=== PATIENT | female | born 1950 | race Caucasian/White ===

== ENCOUNTER 2024-03-26 08:23 | Emergency (ER) | payer OTHER, SELFPAY ==
[2024-03-26 08:32] VITALS: BP 117/71; PULSE 77; RESP 16; TEMP 36.3; O2SAT 96; BMI 29.4
[2024-03-26 09:00] LABS: IDNOW Serial# 08D9AD1C; Strep A Nucleic Acid Negative (Negative)
--- OUTSIDE RECORDS SUMMARY | 2024-03-26 09:04 | XMS_ITS | Continuity of Care Document ---
Author Organization [facility] Saran Wetzel Aung lt Address [address] [place] [address]- Care Team Providers Care Value Analysis Coordinator Name Role Phone Shazia IVAN, Santana Shultz Primary Care Physician Encounter [facility] Date(s): 09/08/20 - 10/08/20 [facility] Saran Starkley Adult [address] [place] [address]- Allergies, Adverse Reactions, Alerts Substance Reaction Severity Status Reglan bruising Active Immunizations Given and Recorded Vaccine Date Status Refusal Reason Influenza Virus Vaccine (oldterm) 1 01/28/20 Recor ded influenza virus vaccine, inactivated 2 02/12/19 Gi ricci influenza virus vaccine, inactivated 3 12/29/16 Gi ricci influenza virus vaccine, inactivated 4 02/01/16 Gi ricci influenza virus vaccine, inactivated 5 12/07/14 Gi ricci influenza virus vaccine, inactivated 6 01/03/14 Gi ricci influenza virus vaccine, inactivated 7 03/24/13 Gi ricci pneumococcal 13-valent vaccine 8 10/09/18 Given Zostavax (oldterm) 9 03/24/13 Given FluLaval (oldterm) 03/01/12 Given Tet/diphth/pertussis, acel (oldterm) 05/12/11 Give n Tetanus Toxoid Vaccine (oldterm) 08/28/00 Given 1Result Comment: PHARMACY 2Result Comment: [id number] 3[facility] 5[facility] Comment[facility] [[facility]2014[facility] 7Admin Note: [facility] 03-22-13 8Result Comment: 9Admin Note[facility] 03-22-13. Medications ALPRAZolam 0.5 mg oral tablet 0.5 mg, 1, tablet, By Mouth, 3 times a day, PRN, # 12 tablet, Refills 0, Tot. Refills 0, Maintenance, for anxiety, 09/09/20 16:37:00 EDT, Route to Pharmacy Electronically, [id number], 167.64, cm, 06/30/20 15:11:00 EST, Height, 96, kg, 08/10... Start Date: 09/09/20 Status: Ordered Excedrin By Mouth, 0 Refills, Maintenance, 08/04/20 11:06:00 EDT, Partial fill upon patient request if the prescription is for a schedule II opioid drug. Start Date: 08/04/20 Status: Ordered hydrochlorothiazide 25 mg oral tablet 25 mg, 1, tablet, By Mouth, Daily, Refills 0, Maintenance, 10/05/20 9:22:00 EDT, Partial fill upon patient request if the prescription is for a schedule II opioid drug. Start Date: 10/05/20 Status: Ordered methylphenidate 10 mg/8 hr oral tablet, extended release 1 tablet = 10 mg, By Mouth, Daily, # 30 tablet, 0 Refills, Maintenance, 10/02/20 8:26:00 EDT, ER Tablet, [id number], 167.64, cm, 06/30/20 15:11:00 EST, Height, 96, kg, 08/10/20 7:04:00 EDT, Dry Weight Start Date: 10/02/20 Status: Ordered nortriptyline 25 mg oral capsule 50 mg, 2, capsule, By Mouth, Daily at bedtime, 2 tabs at bedtime, # 60 capsule, Refills 5, Tot. Refills 5, Maintenance, 10/07/20 12:20:00 EDT, [id number], Dose reduced., 167.64, cm, 10/05/20 9:20:00 E... Start Date: 10/07/20 Stop Date: 04/05/21 Status: Ordered omeprazole 20 mg oral enteric coated capsule 1 capsule = 20 mg, By Mouth, Daily, # 14 capsule, 0 Refills, Maintenance, 08/18/20 9:40:00 EDT, EC Capsule, [id number], Partial fill upon patient request if the prescription is for a schedule II opioid drug., 167.64, cm, 06/30/20 15:11:00 E... Start Date: 08/18/20 Stop Date: 09/01/20 Status: Ordered SUMAtriptan 50 mg oral tablet 1 tablet = 50 mg, By Mouth, Once, 0 Refills, Maintenance, 10/05/20 9:22:00 EDT, Partial fill upon patient request if the prescription is for a schedule II opioid drug. 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
--- OUTSIDE RECORDS SUMMARY | 2024-03-26 09:04 | XMS_ITS | Continuity of Care Document ---
Author Organization [facility] Aung lt Address [address] [place] [address]- Care Team Providers Care Airline Operations Agent Name Role Phone Yelena Fischer Primary Care Physician Encounter [facility] Date(s): 06/12/23 - 07/12/23 [facility] Adult [address] [place] [address]- Referring Physician: Skylar Perez Allergies, Adverse Reactions, Alerts Substance Reaction Severity Status Reglan bruising Active Crestor Active Immunizations Given and Recorded Vaccine Date Status Refusal Reason [id number] bivalent booster vax 03/25/22 Recorded SARS-CoV-2 (COVID-19) mRNA BNT-162b2 vac 02/07/21 Recorded SARS-CoV-2 (COVID-19) mRNA BNT-162b2 vac 07/27/20 Recorded SARS-CoV-2 (COVID-19) mRNA BNT-162b2 vac 07/06/20 Recorded Influenza Virus Vaccine (oldterm) 12/29/20 Recorde d Influenza Virus Vaccine (oldterm) 1 01/28/20 Recor ded influenza virus vaccine, inactivated 2 02/12/19 Gi ricci influenza virus vaccine, inactivated 3 12/29/16 Gi ricci influenza virus vaccine, inactivated 12/25/16 Rosalino rded influenza virus vaccine, inactivated 4 02/01/16 Gi ricic influenza virus vaccine, inactivated 5 12/07/14 Gi ricci influenza virus vaccine, inactivated 6 01/03/14 Gi ricci influenza virus vaccine, inactivated 7 03/24/13 Gi ricci pneumococcal 13-valent vaccine 8 10/09/18 Given Zostavax (oldterm) 9 03/24/13 Given FluLaval (oldterm) 03/01/12 Given Tet/diphth/pertussis, acel (oldterm) 05/12/11 Give n Tetanus Toxoid Vaccine (oldterm) 08/28/00 Given 1Result Comment: PHARMACY 2Result Comment: [id number] 3[facility] 4[facility] 5[facility] Comment: [[facility] 7[facility] Note[facility] 03-22-13 8Result Comment: [id number] 9Admin Note: [facility] 03-22-13. Medications acetaminophen 325 mg oral tablet 650 mg, By Mouth, Every 6 hours, May take OTC not to exceed 3000 mg/day, Refills 0, Maintenance, 01/08/23 11:05:00 EDT, Partial fill upon patient request if the prescription is for a schedule II opioid drug. Start Date: 01/08/23 Status: Ordered Aimovig = 70 mg, Subcutaneous Infusion, Every 28 days, 0 Refills, Maintenance, 12/26/22 11:08:00 EDT, Partial fill upon patient request if the prescription is for a schedule II opioid drug. Start Date: 12/26/22 Status: Ordered Aspirin Tablet 325 mg, By Mouth, 2 times a day, Refills 0, Maintenance, 01/08/23 11:05:00 EDT, Partial fill upon patient request if the prescription is for a schedule II opioid drug. Start Date: 01/08/23 Status: Ordered celecoxib 200 mg oral capsule = 200 mg, By Mouth, Daily, 0 Refills, Maintenance, 01/08/23 11:05:00 EDT, Capsule, Partial fill upon patient request if the prescription is for a schedule II opioid drug. Start Date: 01/08/23 Status: Ordered Colace Capsule 100 mg, 1, capsule, By Mouth, 2 times a day, PRN, Refills 0, Maintenance, as needed for constipation, 01/08/23 11:05:00 EDT, Partial fill upon patient request if the prescription is for a schedule IIopioid drug. Start Date: 01/08/23 Status: Ordered gabapentin 300 mg oral capsule 900 mg, 3, capsule, By Mouth, Daily at bedtime, # 90 capsule, Refills 5, Maintenance, 12/21/22 9:11:00 EDT, Partial fill upon patient request if the prescription is for a schedule II opioid drug. Start Date: 12/21/22 Status: Ordered hydrOXYzine pamoate 25 mg oral capsule 1 capsule = 25 mg, By Mouth, 4 times a day, PRN for anxiety, # 40 capsule, 0 Refills, Maintenance, 12/21/22 9:09:00 EDT, Capsule, Partial fill upon patient request if the prescription is for a schedule II opioid drug. Start Date: 12/21/22 Status: Ordered methylphenidate 10 mg/8 hr oral tablet, extended release 1 tablet = 10 mg, By Mouth, Daily, # 30 tablet, 0 Refills, Maintenance, 06/13/23 9:54:00 EST, ER Tablet, [facility], 163, cm, 01/08/23 11:46:00 EDT, Height, 94.1, kg, 01/08/23 7:00:00 EDT, Dry Weight Start Date: 06/13/23 Status: Ordered Nurtec ODT 75 mg oral tablet, disintegrating 1 tablet = 75 mg, By Mouth, Every 24 hours, PRN as needed for migraine headache, not to exceed 75 mg in 24 hours, # 8 tablet, 5 Refills, Maintenance, 12/21/22 9:10:00 EDT, DIS Tablet, Partial fill upon patient request if the prescription is for a sche... Start Date: 12/21/22 Status: Ordered pantoprazole 40 mg oral delayed release tablet = 40 mg, By Mouth, Daily, 0 Refills, Maintenance, 01/08/23 11:05:00 EDT, EC Tablet Start Date: 01/08/23 Status: Ordered pramipexole 0.25 mg oral tablet 1 tablet = 0.25 mg, By Mouth, Daily at bedtime, PRN Other, restless legs, # 90 tablet, 5 Refills, Maintenance, 12/21/22 9:10:00 EDT, Tablet, Partial fill upon patient request if the prescription is for a schedule II opioid drug. Start Date: 12/21/22 Status: Ordered sertraline 100 mg oral tablet 0 Refills, Maintenance, 09/04/22 12:48:00 EDT, Partial fill upon patient request if the prescription is for a schedule II opioid drug. Start Date: 09/04/22 Status: Ordered Slow Fe (as elemental iron) 45 mg oral tablet, extended release 1 tablet = 45 mg, By Mouth, Daily, 0 Refills, Maintenance, 11/22/20 9:56:00 EDT, Partial fill upon patient request if the prescription is for a schedule II opioid drug. Start Date: 11/22/20 Status: Ordered topiramate 100 mg oral tablet 1 tablet = 100 mg, By Mouth, Daily, # 30 tablet, 0 Refills, Maintenance, 09/04/22 12:48:00 EDT, Tablet, Partial fill upon patient request if the prescription is for a schedule II opioid drug. Start Date: 09/04/22 Status: Ordered Vitamin B2 100 mg oral tablet 1 tablet = 100 mg, By Mouth, Daily, # 30 tablet, 0 Refills, Maintenance, 09/04/22 12:50:00 EDT, Tablet, Partial fill upon patient request if the prescription is for a schedule II opioid drug. Start Date: 09/04/22 Status: Ordered Vitamin D3 2000 intl units oral tablet 1 tablet = 50 mcg, By Mouth, Daily, 0 Refills, Maintenance, 09/04/22 12:49:00 EDT, Partial fill upon patient request if the prescription is for a schedule II opioid drug. 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 Confirmed Active Herpes labialis Confirmed Active Esophageal hiatal hernia Confirmed Active Hypercholesterolemia - ASCVD risk 3.8% as of 08/11/16 Confirmed Active Iron deficiency Confirmed Active Migraine with vertigo Confirmed Active Obesity Confirmed Active [facility] prescription benzodiazepine use Confirmed Active Raynaud's phenomenon Confirmed 03/26/09 Active Severe obesity (BMI 35.0-39.9) with comorbidity Confirmed Active Situational anxiety Confirmed 03/01/12 Active Tinnitus Confirmed 01/20/08 Active Recurrent vertigo - BPPV Confirmed Active Social History Social History Type Response Smoking Status Never smoker entered on: 09/28/17 Sex Patient Care team information Care Team Personnel Name: Yelena Fischer Position: S PCO Associate Professional Member Role: PCP Address: Address: [address] [place] [address] Care Team Related Persons Name: SELMA TEE Address: [address] [place] [address] Name: ELIDA TEE Address: home [address] [place] [address]
--- OUTSIDE RECORDS SUMMARY | 2024-03-26 09:04 | XMS_ITS | Continuity of Care Document ---
Author Organization [facility] Saran Wetzel Aung lt Address [address] [place] [address]- Care Team Providers Care Event Services Manager Name Role Phone Santana Mccray MD Primary Care Physician Encounter [facility] Date(s): 06/10/19 - 06/17/19 [facility] Saran Wetzel Adult [address] [place] [address]- [facility] Encounter Diagnosis Complicated migraine(Discharge Diagnosis) - 06/10/19 Attending Physician: Santana Mccray MD Allergies, Adverse Reactions, Alerts Substance Reaction Severity Status NKA Active Immunizations Given and Recorded Vaccine Date Status Refusal Reason influenza virus vaccine, inactivated 1 02/12/19 Gi ricci influenza virus vaccine, inactivated 2 12/29/16 Gi ricci influenza virus vaccine, inactivated 3 02/01/16 Gi ricci influenza virus vaccine, inactivated 4 12/07/14 Gi ricci influenza virus vaccine, inactivated 5 01/03/14 Gi ricci influenza virus vaccine, inactivated 6 03/24/13 Gi ricci pneumococcal 13-valent vaccine 7 10/09/18 Given Zostavax (oldterm) 8 03/24/13 Given FluLaval (oldterm) 03/01/12 Given Tet/diphth/pertussis, acel (oldterm) 05/12/11 Give n Tetanus Toxoid Vaccine (oldterm) 08/28/00 Given 1Result Comment: [id number] 2[facility] 3[facility] 4[facility] Comment[facility] 6Admin Note[facility] 03-22-13 7Result Comment: 8Admin Note[facility] 03-22-13. Medications ALPRAZolam 0.5 mg oral tablet 0.5 mg, 1, tablet, By Mouth, 3 times a day, PRN, # 12 tablet, Refills 0, Tot. Refills 0, Maintenance, for anxiety, 02/12/19 14:46:41 EDT, Route to Pharmacy Electronically, [id number], [id number] Start Date: 02/12/19 Status: Ordered ferrous sulfate 325 mg oral tablet See Instructions, 1 tablet By Mouth every other day, 0 Refills, Maintenance, 07/25/16 10:33:44 Start Date: 07/25/16 Status: Ordered methylphenidate 20 mg/8 hr oral tablet, extended release 20 mg, 1, tablet, By Mouth, Daily, do not crush or chew, # 30 tablet, Refills 0, Tot. 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) Active ADD (attention deficit disorder)(Confirmed) 01/20/08 Active Conductive hearing loss(Confirmed) 01/20/08 Active Dizzinesses(Confirmed) Active Epigastric pain(Confirmed) Active Gastritis(Confirmed) Active Herpes labialis(Confirmed) Active Esophageal hiatal hernia(Confirmed) Active H/O nausea(Confirmed) Active Hypercholesterolemia - ASCVD risk 3.8% as of 08/11/16(Confirmed) Active Obesity(Confirmed) Active Raynaud's phenomenon(Confirmed) 03/26/09 Active Situational anxiety(Confirmed) 03/01/12 Active Tinnitus(Confirmed) 01/20/08 Active Tongue ulceration(Confirmed) 01/20/08 Active Recurrent vertigo(Confirmed) Active Diagnosis Diagnosis Type Effective Dates Health Status Clinical Service Informant Complicated migraine Discharge Diagnosis 06/10/19 Vital Signs Most recent to oldest [Reference Range]: 1 Height 162.5 cm (06/10/19 3:30 PM) Weight 91.5 kg (06/10/19 3:30 PM) Oxygen Saturation [94-100 %] 97 % (06/10/19 3:30 PM) Pulse Rate [55-90 bpm] 82 bpm (06/10/19 3:30 PM) Body Mass Index [18.5-24.99] 34.65 *>HHI* (06/10/19 3:30 PM) Blood Pressure [90-138/55-84 mm Hg] 116/ 66mm Hg (06/10/19 3:30 PM) Respiratory Rate [16-30 br/min] 14 br/mi n *L* (06/10/19 3:30 PM) Temperature [96.8-100.4 DegF] 97.9 DegF (06/10/19 3:30 PM) Mode of Delivery (Oxygen) Room air (06/10/19 3:30 PM) Blood pressure sites Arm, left (06/10/19 3:30 PM) Temperature Route Oral (06/10/19 3:30 PM) Weight Obtained Via Standing scale (06/10/19 3:30 PM) Social History Social History Type Response Smoking Status Never smoker entered on: 09/28/17 Sex
--- OUTSIDE RECORDS SUMMARY | 2024-03-26 09:04 | XMS_ITS | Continuity of Care Document ---
Author Organization [facility] Rashard Aung lt Address [address] [place] [address]- Care Team Providers Care Corsetier Name Role Phone Esme HERNÁNDEZ, Yelena Mix Primary Care Physician [place] [facility] Date(s): 12/12/23 - 01/11/24 [facility] Adult [address] [place] [address]- Allergies, Adverse Reactions, Alerts Substance Reaction Severity Status Reglan bruising Active Crestor Active Immunizations Given and Recorded Vaccine Date Status Refusal Reason influenza virus vaccine, inactivated 05/16/23 Rosalino rded influenza virus vaccine, inactivated 1 02/12/19 Gi ricci influenza virus vaccine, inactivated 2 12/29/16 Gi ricci influenza virus vaccine, inactivated 12/25/16 Rosalino rded influenza virus vaccine, inactivated 3 02/01/16 Gi ricci influenza virus vaccine, inactivated 4 12/07/14 Gi rcici influenza virus vaccine, inactivated 5 01/03/14 Gi ricci influenza virus vaccine, inactivated 6 03/24/13 Gi ricci [id number] bivalent booster vax 03/25/22 Recorded SARS-CoV-2 (COVID-19) mRNA BNT-162b2 vac 02/07/21 Recorded SARS-CoV-2 (COVID-19) mRNA BNT-162b2 vac 07/27/20 Recorded SARS-CoV-2 (COVID-19) mRNA BNT-162b2 vac 07/06/20 Recorded Influenza Virus Vaccine (oldterm) 12/29/20 Recorde d Influenza Virus Vaccine (oldterm) 7 01/28/20 Recor ded pneumococcal 13-valent vaccine 8 10/09/18 Given Zostavax (oldterm) 9 03/24/13 Given FluLaval (oldterm) 03/01/12 Given Tet/diphth/pertussis, acel (oldterm) 05/12/11 Give n Tetanus Toxoid Vaccine (oldterm) 08/28/00 Given 1Result Comment: [id number] [facility] 3[facility] 6Admin Note[facility] 03-22-13 7Result Comment: PHARMACY 8Result Comment: 9Admin Note[facility] 03-22-13. Medications Aimovig = 70 mg, Subcutaneous Infusion, Every 28 days, 0 Refills, Maintenance, 12/26/22 11:08:00 EDT, Partial fill upon patient request if the prescription is for a schedule II opioid drug. Start Date: 12/26/22 Status: Ordered ezetimibe 10 mg oral tablet 1 tablet = 10 mg, By Mouth, Daily, 0 Refills, Maintenance, 11/29/23 9:33:00 EDT, Tablet, Partial fill upon patient request if the prescription is for a schedule II opioid drug. Start Date: 11/29/23 Status: Ordered gabapentin 300 mg oral capsule 900 mg, 3, capsule, By Mouth, Daily at bedtime, # 90 capsule, Refills 5, Maintenance, 12/21/22 9:11:00 EDT, Partial fill upon patient request if the prescription is for a schedule II opioid drug. Start Date: 12/21/22 Status: Ordered methylphenidate 20 mg/8 hr oral tablet, extended release 20 mg, 1, tablet, By Mouth, Daily, # 30 tablet, Refills 0, Tot. Refills 0, Maintenance, 12/13/23 9:48:00 EDT, Route to Pharmacy Electronically, [id number], Partial fill upon patientrequest if the prescription is for a schedule II opioid... Start Date: 12/13/23 Status: Ordered Nurtec ODT 75 mg oral tablet, disintegrating 1 tablet = 75 mg, By Mouth, Every 24 hours, PRN as needed for migraine headache, not to exceed 75 mg in 24 hours, # 8 tablet, 5 Refills, Maintenance, 12/21/22 9:10:00 EDT, DIS Tablet, Partial fill upon patient request if the prescription is for a sche... Start Date: 12/21/22 Status: Ordered sertraline 100 [...] Confirmed Active Migraine with vertigo Confirmed Active Obese class I Confirmed Active Obesity Confirmed Active [facility] prescription benzodiazepine use Confirmed Active Raynaud's phenomenon Confirmed 03/26/09 Active Situational anxiety Confirmed 03/01/12 Active Tinnitus Confirmed 01/20/08 Active Recurrent vertigo - BPPV Confirmed Active Social History Social History Type Response Smoking Status Never smoker entered on: 09/28/17 Sex Patient Care team information Care Team Personnel Name: Yelena Fischer Position: [facility] PCO Associate Professional Member Role: PCP Address: Address: [address] [place] [id number]- Care Team Related Persons Name: SELMA TEE Address: home [address] [place] [address] Name: ELIDA TEE Address: [address] [place] [address]
--- OUTSIDE RECORDS SUMMARY | 2024-03-26 09:04 | XMS_ITS | Continuity of Care Document ---
Author Organization [facility] Address Unknown Care Team Providers Care Valve Technician Name Role Phone Shazia IVAN, Santana Shultz Primary Care Physician Encounter [facility] Date(s): 02/04/21 - 06/04/21 [facility] Attending Physician: Felicitas Dunbar MD Admitting Physician: Felicitas Dunbar MD Allergies, Adverse Reactions, Alerts Substance Reaction Severity Status Reglan bruising Active Immunizations Given and Recorded Vaccine Date Status Refusal Reason SARS-CoV-2 (COVID-19) mRNA BNT-162b2 vac 02/07/21 Recorded [...] 08/28/00 Given 1Result Comment: PHARMACY 2Result Comment: [id number] 3[facility] 5[facility] Comment[facility] [[facility] 7Admin Note: [facility] 03-22-13 8Result Comment: [id number] 9Admin Note: [facility] 03-22-13. Medications ALPRAZolam 0.5 mg oral tablet 0.5 mg, 1, tablet, By Mouth, 3 times a day, PRN, # 12 tablet, Refills 0, Tot. Refills 0, Maintenance, for anxiety, 04/26/21 16:49:00 EST, Route to Pharmacy Electronically, [id number], 164, cm, 03/18/21 11:18:00 EST, Height, 96, kg, 04... Start Date: 04/26/21 Status: Ordered Excedrin By Mouth, 0 Refills, [...] opioid drug. Start Date: 10/05/20 Status: Ordered meclizine 12.5 mg oral tablet 1 tablet = 12.5 mg, By Mouth, 2 times a day, PRN for dizziness, # 30 tablet, 0 Refills, Maintenance, 02/02/21 15:00:00 EDT, Tablet, [id number], Partial fill upon patient request if the prescription is for a schedule II opioid drug., 1... Start Date: 02/02/21 Status: Ordered methylphenidate 10 mg/8 hr oral tablet, extended release 1 tablet = 10 mg, By Mouth, Daily, # 30 tablet, 0 Refills, Maintenance, 05/27/21 14:21:00 EST, ER Tablet, [facility][id number], 164, cm, 03/18/21 11:18:00 EST, Height, 96, kg, 08/10/20 7:04:00EDT, Dry Weight Start Date: 05/27/21 Status: Ordered Slow Fe (as elemental iron) 45 mg oral tablet, extended release 1 tablet = 45 mg, By Mouth, Daily, 0 Refills, Maintenance, 11/22/20 9:56:00 EDT, Partial fill upon patient request if the prescription is for a schedule II opioid drug. Start Date: 11/22/20 Status: Ordered SUMAtriptan 50 mg oral tablet 1 tablet = 50 mg, By Mouth, Once, 0 Refills, Maintenance, 10/05/20 9:22:00 EDT, Partial fill upon patient request if the prescription is for a schedule II opioid drug. 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) Active Herpes labialis(Confirmed) Active Esophageal hiatal hernia(Confirmed) Active Hypercholesterolemia - ASCVD risk 3.8% as of 08/11/16(Confirmed) Active Iron deficiency(Confirmed) Active Migraine with vertigo(Confirmed) Active Obese class I(Confirmed) Active Obesity(Confirmed) Active [facility] prescription benzo diazepine use(Confirmed) Active Raynaud's phenomenon(Confirmed) 03/26/09 Active Situational anxiety(Confirmed) 03/01/12 Active Tinnitus(Confirmed) 01/20/08 Active Recurrent vertigo - BPPV(Confirmed) Active Social History Social History Type Response Smoking Status Never smoker entered on: 09/28/17 Sex
--- OUTSIDE RECORDS SUMMARY | 2024-03-26 09:04 | XMS_ITS | Continuity of Care Document ---
Author Organization [facility] Rashard Aung lt Address [address] [place] [address]- Care Team Providers Care Fish And Wildlife Warden Name Role Phone Esme HERNÁNDEZ, Yelena Mix Primary Care Physician Encounter [facility] Date(s): 12/26/21 - 01/25/22 [facility] [place] Adult [address] [place] [address]- Allergies, Adverse Reactions, Alerts Substance Reaction Severity [...] 08/28/00 Given 1Result Comment: PHARMACY 2Result Comment: [id number] 3Admin Note: [facility] 4Admin Note: [facility] 5Result [...] 04/26/21 16:49:00 EST, Route to Pharmacy Electronically, [facility] #[id number], 164, cm, 03/18/21 11:18:00 EST, Height, 96, [...] 0 Refills, Maintenance, 02/02/21 15:00:00 EDT, Tablet, [facility] #[id number], Partial fill upon patient request if the prescription is for a schedule II opioid drug., 1... Start Date: 02/02/21 Status: Ordered methylphenidate 10 mg/8 hr oral tablet, extended release 1 tablet = 10 mg, By Mouth, Daily, # 21 tablet, 0 Refills, Maintenance, 01/04/22 9:59:00 EDT, ER Tablet, [facility], Primary pharmacy only had 9 tabs available, this is a new scriptto complete the one month supply, 164, cm, 12/12/21 14:... Start Date: 01/04/22 Status: Ordered prochlorperazine 10 mg oral tablet 0 Refills, Maintenance, 12/12/21 14:49:00 EDT, Partial fill upon patient request if the prescription is for a schedule II opioid drug. 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
--- OUTSIDE RECORDS SUMMARY | 2024-03-26 09:04 | XMS_ITS | Continuity of Care Document ---
Author Organization [facility] Saran Wetzel Aung lt Address [address] [place] [address]- Care Team Providers Care Warranty Clerk Name Role Phone Shazia IVAN, Santana Shultz Primary Care Physician [facility] Date(s): 05/10/20 - 06/09/20 [facility] Saran Wetzel Adult [address] [place] [address]- Allergies, Adverse Reactions, Alerts Substance Reaction Severity [...] 08/28/00 Given 1Result Comment: PHARMACY 2Result Comment: [id number] 3Admin Note: [facility] 4Admin Note: [facility] 5Result Comment: [12/10/2014] [facility] 6[facility] 7Admin Note: [facility] 03-22-13 8Result Comment: 9Admin Note: [facility] 03-22-13. Medications ALPRAZolam 0.5 mg oral tablet 0.5 mg, 1, tablet, By Mouth, 3 times a day, PRN, # 12 tablet, Refills 0, Tot. Refills 0, Maintenance, for anxiety, 05/24/20 9:44:00 EST, Route to Pharmacy Electronically, [facility], 167.64, cm, 05/24/20 9:15:00 EST, Height, 91.1, kg, 01/12... Start Date: 05/24/20 Status: Ordered magnesium oxide 400 mg oral tablet 1 tablet = 400 mg, By Mouth, Daily, for 30 days, Take with meal, # 30 tablet, 5 Refills, Acute 08/11/20 15:52:00 EDT, 02/13/20 15:52:00 EDT, [facility], 167.64, cm, 02/13/20 15:14:00 EDT, Height, 91.1, kg, 01/13/20 7:22:00 EDT, Dry Weight Start Date: 02/13/20 Stop Date: 08/11/20 Status: Ordered methylphenidate 10 mg/8 hr oral tablet, extended release 1 tablet = 10 mg, By Mouth, Daily, # 30 tablet, 0 Refills, Maintenance, 05/24/20 9:43:00 EST, ER Tablet, [facility], 167.64, cm, 05/24/20 9:15:00 EST, Height, 91.1, kg, 01/13/20 7:22:00 EDT, Dry Weight Start Date: 05/24/20 Status: Ordered nortriptyline 25 mg oral capsule 75 mg, 3, capsule, By Mouth, Daily at bedtime, # 90 capsule, Refills 5, Tot. Refills 5, Maintenance, 02/13/20 15:49:00 EDT, Route to Pharmacy Electronically, [facility], 167.64, cm, 02/13/20 15:14:00 EDT, Height, 91.1, kg, 01/13/20 7:22:00... Start Date: 02/13/20 Stop Date: 08/11/20 Status: Ordered Problem List Condition Effective Dates Status Health Status Inform ant Chronic allergic rhinitis(Confirmed) Active Anxiety(Confirmed) 4/13/10 Active Anxiety State, Unspecified(Confirmed) Active Attention Deficit [...]
--- OUTSIDE RECORDS SUMMARY | 2024-03-26 09:04 | XMS_ITS | Continuity of Care Document ---
Author Organization [facility] Saran Wetzel Aung lt Address [address] [place] [address]- Care Team Providers Care Fiber Designer Name Role Phone Shazia IVAN, Santana Shultz Primary Care Physician [facility] Date(s): 01/07/20 - 02/06/20 [facility] Saran Starkley Adult [address] [place] [address]- [facility] Allergies, Adverse Reactions, Alerts Substance Reaction Severity [...] Toxoid Vaccine (oldterm) 08/28/00 Given 1Result Comment: [id number] 2Admin Note: [facility] 3Admin Note: [facility] 4Result Comment: [12/10/2014] [facility] 5[facility] 6Admin Note: [facility] 03-22-13 7Result Comment: [id number] 8Admin Note: [facility] 03-22-13. Medications ALPRAZolam 0.5 mg oral tablet 0.5 mg, 1, tablet, By Mouth, 3 times a day, PRN, # 12 tablet, Refills 0, Tot. Refills 0, Maintenance, for anxiety, 08/27/19 16:07:00 EDT, Route to Pharmacy Electronically, [facility], 162.5, cm, 07/07/19 13:50:00 EDT, Height Start Date: 08/27/19 Status: Ordered methylphenidate 10 mg/8 hr oral tablet, extended release 1 tablet = 10 mg, By Mouth, Daily, # 30 tablet, 0 Refills, Maintenance, 02/05/20 15:38:00 EDT, ER Tablet, [facility], 167.64, cm, 01/13/20 7:22:00 EDT, Height, 91.1, kg, 01/13/20 7:22:00 EDT, Dry Weight Start Date: 02/05/20 Status: Ordered nortriptyline 25 mg oral capsule 50 mg, 2, capsule, By Mouth, Daily at bedtime, # 60 capsule, Refills 5, Tot. Refills 5, Maintenance, 12/25/19 7:35:00 EDT, Route to Pharmacy Electronically, [facility], Increasing dose, 162.5, cm, 12/03/19 14:19:00 EDT, Height Start Date: 12/25/19 Stop Date: 06/22/20 Status: Ordered slow release iron slow release iron, 45 mg, By Mouth, Daily, Refills 0, Maintenance, 01/06/20 16:29:00 EDT, Supply Start Date: 01/06/20 Status: Ordered Vitamin B12 0 Refills, Maintenance, 09/23/19 9:44:00 EDT Start Date: 09/23/19 Status: Ordered Zofran 4 mg oral tablet 1 tablet = 4 mg, By Mouth, 2 times a day, PRN Nausea & Vomiting, # 20 tablet, 1 Refills, Maintenance, 12/03/19 14:38:00 EDT, [facility], 162.5, cm, 12/03/19 14:19:00 EDT, Height Start Date: 12/03/19 Status: Ordered Problem List Condition Effective Dates [...]
--- OUTSIDE RECORDS SUMMARY | 2024-03-26 09:04 | XMS_ITS | Continuity of Care Document ---
Author Organization [facility] Address [address] [facility], [address] Floor, [address] [place] [address]- Care Team Providers Care Crawler Dragline Operator Name Role Phone Shazia IVAN, Santana Shultz Primary Care Physician [facility] Date(s): 11/27/19 - 12/27/19 [facility] [address] [place], [address], [address] [place] [address]- [facility] Allergies, Adverse Reactions, Alerts Substance Reaction Severity [...] Toxoid Vaccine (oldterm) 08/28/00 Given 1Result Comment: [id number] 2Admin Note: [facility] 3Admin Note: [facility] 4Result [...] 08/27/19 16:07:00 EDT, Route to Pharmacy Electronically, [facility], 162.5, cm, 07/07/19 13:50:00 EDT, Height Start Date: 08/27/19 Status: Ordered Medrol Dosepak 4 mg oral tablet 1 pack/packet, By Mouth, Daily, for 6 days, as directed on package labeling, # 21 tablet, 0 Refills, Acute 12/31/19 7:33:00 EDT, 12/25/19 7:33:00 EDT, Tablet, [facility], 162.5, cm, 12/03/19 14:19:00 EDT, Height Start Date: 12/25/19 Stop Date: 12/31/19 Status: Ordered methylphenidate 10 mg/8 hr oral tablet, extended release 1 tablet = 10 mg, By Mouth, Daily, # 30 tablet, 0 Refills, Maintenance, 12/01/19 17:00:00 EDT, ER Tablet, [facility], 162.5, cm, 11/14/19 11:59:00 EDT, Height Start Date: 12/01/19 Status: Ordered Migranol Herbal Support Migranol Herbal Support, Refills 0, Maintenance, tid, 11/14/19 12:03:00 EDT, Supply Start Date: 11/14/19 Status: Ordered nortriptyline 25 mg oral capsule 50 mg, 2, capsule, By Mouth, Daily at bedtime, # 60 capsule, Refills 5, Tot. Refills 5, Maintenance, 12/25/19 7:35:00 EDT, Route to Pharmacy Electronically, [facility], Increasing dose, 162.5, cm, 12/03/19 14:19:00 EDT, Height Start Date: 12/25/19 Stop Date: 06/22/20 Status: Ordered Vitamin B12 0 Refills, Maintenance, 09/23/19 9:44:00 EDT Start Date: 09/23/19 Status: Ordered Zofran 4 mg oral tablet 1 tablet = 4 mg, By Mouth, 2 times a day, PRN Nausea & Vomiting, # 20 tablet, 1 Refills, Maintenance, 12/03/19 14:38:00 EDT, [facility], 162.5, cm, 12/03/19 14:19:00 EDT, [...]
--- OUTSIDE RECORDS SUMMARY | 2024-03-26 09:04 | XMS_ITS | Continuity of Care Document ---
Author Organization [facility] Address [address] [facility], [address] Floor, [address] [place] [address]- Care Team Providers Care Cotton Converter Name Role Phone Shazia IVAN, Santana Shultz Primary Care Physician [facility]counter [facility] Date(s): 11/27/19 - 12/27/19 [facility] [address] [place], [address] Floor, [address] [place] [address]- [facility] Allergies, Adverse Reactions, Alerts Substance Reaction Severity [...] Toxoid Vaccine (oldterm) 08/28/00 Given 1Result Comment: [id number] 2Admin Note: [facility] 3Admin Note: [facility] 4Result [...] 08/27/19 16:07:00 EDT, Route to Pharmacy Electronically, [facility], 162.5, cm, 07/07/19 13:50:00 EDT, Height Start Date: 08/27/19 Status: Ordered Medrol Dosepak 4 mg oral tablet 1 pack/packet, By Mouth, Daily, for 6 days, as directed on package labeling, # 21 tablet, 0 Refills, Acute 12/31/19 7:33:00 EDT, 12/25/19 7:33:00 EDT, Tablet, [facility], 162.5, cm, 12/03/19 14:19:00 EDT, Height Start Date: 12/25/19 Stop Date: 12/31/19 Status: Ordered methylphenidate 10 mg/8 hr oral tablet, extended release 1 tablet = 10 mg, By Mouth, Daily, # 30 tablet, 0 Refills, Maintenance, 12/01/19 17:00:00 EDT, ER Tablet, [facility], 162.5, cm, 11/14/19 11:59:00 EDT, Height Start Date: 12/01/19 Status: Ordered Migranol Herbal Support Migranol Herbal Support, Refills 0, Maintenance, tid, 11/14/19 12:03:00 EDT, Supply Start Date: 11/14/19 Status: Ordered nortriptyline 25 mg oral capsule 50 mg, 2, capsule, By Mouth, Daily at bedtime, # 60 capsule, Refills 5, Tot. Refills 5, Maintenance, 12/25/19 7:35:00 EDT, Route to Pharmacy Electronically, [facility], Increasing dose, 162.5, cm, 12/03/19 14:19:00 EDT, Height Start Date: 12/25/19 Stop Date: 06/22/20 Status: Ordered Vitamin B12 0 Refills, Maintenance, 09/23/19 9:44:00 EDT Start Date: 09/23/19 Status: Ordered Zofran 4 mg oral tablet 1 tablet = 4 mg, By Mouth, 2 times a day, PRN Nausea & Vomiting, # 20 tablet, 1 Refills, Maintenance, 12/03/19 14:38:00 EDT, [facility], 162.5, cm, 12/03/19 14:19:00 EDT, [...]
--- OUTSIDE RECORDS SUMMARY | 2024-03-26 09:04 | XMS_ITS | Continuity of Care Document ---
Author Organization [facility] Aung lt Address [address] [place] [address]- Care Team Providers Care Sliver Handler Name Role Phone Esme HERNÁNDEZ, Yelena Mix Primary Care Physician Encounter [facility] Date(s): 12/12/21 - 01/11/22 [facility] Adult [address] [place] [address]- Attending Physician: Admtr, Ar8 Allergies, Adverse Reactions, Alerts Substance Reaction Severity [...] 08/28/00 Given 1Result Comment: PHARMACY 2Result Comment: [id number] 3Admin Note: [facility] 4Admin Note: [facility] 5Result [...] 04/26/21 16:49:00 EST, Route to Pharmacy Electronically, [facility] #[id number], 164, cm, 03/18/21 11:18:00 EST, Height, 96, [...] 0 Refills, Maintenance, 02/02/21 15:00:00 EDT, Tablet, [facility] #[id number], Partial fill upon patient request if the [...] Active Migraine with vertigo(Confirmed) Active Obese class II(Confirmed) Active Obesity(Confirmed) Active intermediate prescription benzo diazepine use(Confirmed) Active Raynaud's phenomenon(Confirmed) 03/26/09 Active Situational anxiety(Confirmed) 03/01/12 Active Tinnitus(Confirmed) 01/20/08 Active Recurrent vertigo - BPPV(Confirmed) Active Social History Social History Type Response Smoking Status Never smoker entered on: 09/28/17 Sex Care Team Personnel Name: Yelena Fischer Address: [address] [place] [address]
--- OUTSIDE RECORDS SUMMARY | 2024-03-26 09:04 | XMS_ITS | Continuity of Care Document ---
Author Organization [facility] Address [address] [facility], [address] Floor, [address] [place] [address]- Care Team Providers Care Pre School Manager Name Role Phone Shazia IVAN, Santana Shultz Primary Care Physician Encounter [facility] Date(s): 01/20/20 - 02/19/[address] [facility] [address] [place], [address], [address] [place] [address]- [facility] Attending Physician: Admtamiko, Yoel8 Admitting Physician: AdmtrYa Referring Physician: Admtr, Ar8 Allergies, Adverse Reactions, Alerts [...] Toxoid Vaccine (oldterm) 08/28/00 Given 1Result Comment: [id number] 2Admin Note: [facility] 3Admin Note: [facility] 4Result [...] 08/27/19 16:07:00 EDT, Route to Pharmacy Electronically, [facility], 162.5, cm, 07/07/19 13:50:00 EDT, Height Start Date: 08/27/19 Status: Ordered magnesium oxide 400 mg oral tablet 1 tablet = 400 mg, By Mouth, Daily, for 30 days, Take with meal, # 30 tablet, 5 Refills, Acute 08/11/20 15:52:00 EDT, 02/13/20 15:52:00 EDT, [facility], 167.64, cm, 02/13/20 15:14:00 EDT, Height, 91.1, kg, 01/13/20 7:22:00 EDT, Dry Weight Start Date: 02/13/20 Stop Date: 08/11/20 Status: Ordered methylphenidate 10 mg/8 hr oral tablet, extended release 1 tablet = 10 mg, By Mouth, Daily, # 30 tablet, 0 Refills, Maintenance, 02/05/20 15:38:00 EDT, ER Tablet, [facility], 167.64, cm, 01/13/20 7:22:00 EDT, Height, 91.1, kg, 01/13/20 7:22:00 EDT, Dry Weight Start Date: 02/05/20 Status: Ordered nortriptyline 25 mg oral capsule 75 mg, 3, capsule, By Mouth, Daily at bedtime, # 90 capsule, Refills 5, Tot. Refills 5, Maintenance, 02/13/20 15:49:00 EDT, Route to Pharmacy Electronically, [facility], 167.64, cm, 02/13/20 15:14:00 EDT, Height, 91.1, kg, 01/13/20 7:22:00... Start Date: 02/13/20 Stop Date: 08/11/20 Status: Ordered slow release iron slow release [...] Vomiting, # 20 tablet, 1 Refills, Maintenance, 02/13/20 15:53:00 EDT, [facility], 167.64, cm, 02/13/20 15:14:00 EDT, Height, 91.1, kg, 01/13/20 7:22:00 EDT, Dry Weight Start Date: 02/13/20 Status: Ordered Problem List Condition Effective Dates [...]
--- OUTSIDE RECORDS SUMMARY | 2024-03-26 09:04 | XMS_ITS | Continuity of Care Document ---
Author Organization [facility] Saran Wetzel Aung lt Address [address] [place] [address]- Care Team Providers Care Fire Apparatus Engineer Name Role Phone Santana Mccray MD Primary Care Physician Encounter [facility] Date(s): 05/24/20 - 05/31/20 [facility] Saran Wetzel Adult [address] [place] [address]- Encounter Diagnosis ADD (attention deficit disorder)(Discharge Diagnosis) - 05/24/20 Anxiety(Discharge Diagnosis) - 05/24/20 Attending Physician: Santana Mccray MD Allergies, Adverse [...] 08/28/00 Given 1Result Comment: PHARMACY 2Result Comment: [id number] 3Admin Note: [facility] 4Admin Note: [facility] 5Result Comment: [12/10/2014] [facility] 6[facility] 7Admin Note: [facility] 03-22-13 8Result Comment: [id number] 9Admin Note: [facility] 03-22-13. Medications ALPRAZolam 0.5 mg oral tablet 0.5 mg, 1, tablet, By Mouth, 3 times a day, PRN, # 12 tablet, Refills 0, Tot. Refills 0, Maintenance, for anxiety, 05/24/20 9:44:00 EST, Route to Pharmacy Electronically, [facility], 167.64, cm, 05/24/20 9:15:00 EST, Height, 91.1, kg, 01/12... Start Date: 05/24/20 Status: Ordered magnesium oxide 400 mg oral tablet 1 tablet = 400 mg, By Mouth, Daily, for 30 days, Take with meal, # 30 tablet, 5 Refills, Acute 08/11/20 15:52:00 EDT, 02/13/20 15:52:00 EDT, [facility], 167.64, cm, 02/13/20 15:14:00 EDT, Height, 91.1, kg, 01/13/20 7:22:00 EDT, Dry Weight Start Date: 02/13/20 Stop Date: 08/11/20 Status: Ordered methylphenidate 10 mg/8 hr oral tablet, extended release 1 tablet = 10 mg, By Mouth, Daily, # 30 tablet, 0 Refills, Maintenance, 05/24/20 9:43:00 EST, ER Tablet, [facility], 167.64, cm, 05/24/20 9:15:00 EST, Height, 91.1, kg, 01/13/20 7:22:00 EDT, Dry Weight Start Date: 05/24/20 Status: Ordered nortriptyline 25 mg oral capsule 75 mg, 3, capsule, By Mouth, Daily at bedtime, # 90 capsule, Refills 5, Tot. Refills 5, Maintenance, 02/13/20 15:49:00 EDT, Route to Pharmacy Electronically, [facility], 167.64, cm, 02/13/20 15:14:00 [...] Diagnosis Diagnosis Type Effective Dates Health Status Cl inical Service Informant ADD (attention deficit disorder) Discharge Diagnosis 05/24/20 Anxiety Discharge Diagnosis 05/24/20 Vital Signs Most recent to oldest [Reference Range]: 1 Height 167.64 cm (05/24/20 9:15 AM) Weight 89.5 kg (05/24/20 9:15 AM) Body Mass Index [18.5-24.99] 31.85 *>HHI* (05/24/20 9:15 AM) Weight Obtained Via Standing scale (05/24/20 9:15 AM) Social History Social History Type Response Smoking Status Never smoker entered on: 09/28/17 Sex
--- OUTSIDE RECORDS SUMMARY | 2024-03-26 09:04 | XMS_ITS | Continuity of Care Document ---
Author Organization [facility] Aung lt Address [address] [place] [address]- Care Team Providers Care House Calls Nurse Practitioner Name Role Phone Yelena Fischer Primary Care Physician [phone] Encounter [facility] Date(s): 11/29/23 - 12/06/23 [facility] Adult [address] [place] [address]- Encounter Diagnosis ADD (attention deficit disorder)(Discharge Diagnosis) - 11/29/23 Attending Physician: Yelena Fischer Allergies, Adverse Reactions, Alerts Substance Reaction Severity [...] virus vaccine, inactivated 6 03/24/13 Gi ricci [id number] bivalent booster vax 03/25/22 Recorded SARS-CoV-2 (COVID-19) [...] Toxoid Vaccine (oldterm) 08/28/00 Given 1Result Comment: [id number] 2Admin Note: [facility] 3Admin Note: [facility] 4Result Comment: [12/10/2014] [facility] 6Admin Note: [facility] 03-22-13 7Result Comment: PHARMACY 8Result Comment: [id number] 9Admin Note: [facility] 03-22-13. 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 Active Raynaud's phenomenon Confirmed 03/26/09 Active Situational anxiety Confirmed 03/01/12 Active Tinnitus Confirmed 01/20/08 Active Recurrent vertigo - BPPV Confirmed Active Diagnosis Diagnosis Type Effective Dates Health Status Cl inical Service Informant ADD (attention deficit disorder) Discharge Diagnosis 11/29/23 Vital Signs Most recent to oldest [Reference Range]: 1 Height 163 cm (11/29/23 9:34 AM) Weight 93.0 kg (11/29/23 9:34 AM) Oxygen Saturation [94-100 %] 96 % (11/29/23 9:34 AM) Pulse Rate [55-90 bpm] 55 bpm (11/29/23 9:34 AM) Body Mass Index [18.5-24.99 kg/m2] 35 kg /m2 *>HHI* (11/29/23 9:34 AM) Blood Pressure [90-138/55-84 mm Hg] 108/ 66mm Hg (11/29/23 9:34 AM) Mode of Delivery (Oxygen) Room air (11/29/23 9:34 AM) Blood pressure sites Arm, right (11/29/23 9:34 AM) Weight Obtained Via Standing scale (11/29/23 9:34 AM) Social History Social History Type Response Smoking Status Never smoker entered on: 09/28/17 Sex Patient Care team information Care Team Personnel Name: Yelena Fischer Position: S PCO Associate Professional Member Role: PCP Address: Address: [address] [place] [address]- Care Team Related Persons Name: SELMA TEE Address: home [address] [place] [address] Name: ELIDA TEE Address: home [address] [place] [address]
--- OUTSIDE RECORDS SUMMARY | 2024-03-26 09:04 | XMS_ITS | Continuity of Care Document ---
Author Organization [facility] Address [address] [place] [address]- Care Team Providers Care Pipe Or Steam Fitter Furnace Installer Name Role Phone Santana Mccray MD Primary Care Physician [phone] Encounter [facility] Date(s): 02/18/19 - 07/29/[address] [address]- [facility] Attending Physician: Reinaldo Keenan MD Admitting Physician: Reinaldo Keenan MD Allergies, Adverse Reactions, Alerts Substance Reaction [...] Toxoid Vaccine (oldterm) 08/28/00 Given 1Result Comment: [id number] 2Admin Note: [facility] 3Admin Note: [facility] 4Result Comment: [12/10/2014] [facility] 5[facility] 6Admin Note: [facility] 03-22-13 7Result Comment: 8Admin Note[facility] 03-22-13. Medications methylphenidate 10 mg/8 hr oral tablet, extended release 1 tablet = 10 mg, By Mouth, Daily, # 30 tablet, 0 Refills, Maintenance, 07/15/19 9:11:00 EDT, ER Tablet, [facility], 162.5, cm, 07/07/19 13:50:00 EDT, Height Start Date: 07/15/19 Status: Ordered predniSONE 10 mg oral tablet See Instructions, PRN Take at onset of migraine, 4 tablets by mouth once daily for 4 days then 3 tablets daily for 1 day then 2 tablets daily for 1 day then 1 tablet daily then stop., # 22 tablet, 5 Refills, Maintenance, 07/07/19 14:35:00 EDT, Tablet,... Start Date: 07/07/19 Status: Ordered Problem List Condition Effective Dates [...]
--- OUTSIDE RECORDS SUMMARY | 2024-03-26 09:04 | XMS_ITS | Continuity of Care Document ---
Author Organization [facility] Cossayuna Aung lt Address [address] [place] [address]- Care Team Providers Care Chyron Operator Name Role Phone Shazia IVAN, Santana Shultz Primary Care Physician [phone] [facility] Date[facility]): 02/[facility]21 - 03/17/21 [facility] [place] Adult [address] [place] [address]- Allergies, Adverse Reactions, Alerts Substance Reaction Severity Status Reglan bruising Active Immunizations Given and Recorded Vaccine Date Status Refusal Reason SARS-CoV-2 (COVID-19) mRNA BNT-162b2 vac 02/07/21 Recorded SARS-CoV-2 (COVID-19) mRNA BNT-162b2 vac 07/27/20 Recorded SARS-CoV-2 (COVID-19) mRNA BNT-162b2 vac 07/06/20 Recorded Influenza Virus Vaccine (oldterm) 1 01/28/20 Recor [...] 08/28/00 Given 1Result Comment: PHARMACY 2Result Comment: [id number] 3Admin Note: [facility] 4Admin Note: [facility] 5Result Comment: [12/10/2014] [facility] 7Admin Note: [facility] 03-22-13 8Result Comment: [id number] 9Admin Note: [facility] 03-22-13. Medications ALPRAZolam 0.5 mg oral tablet 0.5 mg, 1, tablet, By Mouth, 3 times a day, PRN, # 12 tablet, Refills 0, Tot. Refills 0, Maintenance, for anxiety, 02/16/21 17:04:00 EDT, Route to Pharmacy Electronically, [facility] #[id number], 164, cm, 11/22/20 9:52:00 EDT, Height, 96, kg, 04... Start Date: 02/16/21 Status: Ordered Excedrin By Mouth, 0 Refills, [...] 0 Refills, Maintenance, 02/02/21 15:00:00 EDT, Tablet, [facility] #[id number], Partial fill upon patient request if the prescription is for a schedule II opioid drug., 1... 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
--- OUTSIDE RECORDS SUMMARY | 2024-03-26 09:04 | XMS_ITS | Continuity of Care Document ---
Author Organization [facility] Rashard Aung lt Address [address] [place] [address]- Care Team Providers Care Medical Investigator Name Role Phone Shazia IVAN, Santana Shultz Primary Care Physician [facility] Date(s): 11/30/20 - 12/30/20 [facility] Adult [address] [place] [address]- Allergies, Adverse Reactions, Alerts Substance Reaction Severity Status Reglan bruising Active Immunizations Given and Recorded Vaccine Date Status Refusal Reason SARS-CoV-2 (COVID-19) mRNA BNT-162b2 vac 07/27/20 Recorded [...] 08/28/00 Given 1Result Comment: PHARMACY 2Result Comment: [id number] 3Admin Note: [facility] 4Admin Note: [facility] 5Result Comment: [12/10/2014] [facility] 6[facility] 7Admin Note: [facility] 03-22-13 8Result Comment: [id number] 9Admin Note: [facility] 03-22-13. Medications ALPRAZolam 0.5 mg oral tablet 0.5 mg, 1, tablet, By Mouth, 3 times a day, PRN, # 12 tablet, Refills 0, Tot. Refills 0, Maintenance, for anxiety, 11/22/20 10:20:00 EDT, Route to Pharmacy Electronically, [facility] #[id number], 164, cm, 11/22/20 9:52:00 EDT, Height, 96, kg, ... Start Date: 11/22/20 Status: Ordered Excedrin By Mouth, 0 Refills, [...] Daily, # 30 tablet, 0 Refills, Maintenance, 12/01/20 16:46:00 EDT, ER Tablet, [facility] #[id number], 164, cm, 11/22/20 9:52:00 EDT, Height, 96, kg, 08/10/20 7:04:00 EDT, Dry Weight Start Date: 12/01/20 Status: Ordered nortriptyline 25 mg oral capsule 50 mg, 2, capsule, By Mouth, Daily at bedtime, 2 tabs at bedtime, # 60 capsule, Refills 5, Tot. Refills 5, Maintenance, 10/07/20 12:20:00 EDT, Route to Pharmacy Electronically, [facility] #[id number], Dose reduced., 167.64, cm, 10/05/20 9:20:00 E... Start Date: 10/07/20 Stop Date: 04/05/21 Status: Ordered Slow Fe (as elemental iron) [...] Active Migraine with vertigo(Confirmed) Active Obesity(Confirmed) Active halfway prescription benzo diazepine use(Confirmed) Active Raynaud's phenomenon(Confirmed) 03/26/09 Active Situational anxiety(Confirmed) 03/01/12 Active Tinnitus(Confirmed) 01/20/08 Active Recurrent vertigo - BPPV(Confirmed) Active Social History Social History Type Response Smoking Status Never smoker entered on: 09/28/17 Sex
--- OUTSIDE RECORDS SUMMARY | 2024-03-26 09:04 | XMS_ITS | Continuity of Care Document ---
Author Organization [facility] Address [address] [place] [address]- Care Team Providers Care Inside Polisher Name Role Phone Shazia IVAN, Santana Shultz Primary Care Physician Encounter [facility] Date(s): 02/24/21 - 03/26/[address] [address] Attending Physician: Ya Reyez Admitting Physician: AdmYa morrison Referring Physician: AdmtrYa Allergies, Adverse Reactions, Alerts Substance Reaction Severity [...] 08/28/00 Given 1Result Comment: PHARMACY 2Result Comment: [id number] 3Admin Note: [facility] 4Admin Note: [facility] 5Result [...] 02/16/21 17:04:00 EDT, Route to Pharmacy Electronically, [facility] #[id number], 164, cm, 11/22/20 9:52:00 EDT, Height, 96, kg, 04/... Start Date: 02/16/21 Status: Ordered Excedrin By [...] 0 Refills, Maintenance, 02/02/21 15:00:00 EDT, Tablet, [facility] #[id number], Partial fill upon patient request if the prescription is for a schedule II opioid drug., 1... 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
--- OUTSIDE RECORDS SUMMARY | 2024-03-26 09:04 | XMS_ITS | Continuity of Care Document ---
Author Organization [facility] Address [address] [place] [address] [address], [address] [place] [address]- Care Team Providers Care Prosthetic Lab Technician Name Role Phone Shazia IVAN, Santana Shultz Primary Care Physician [facility] Date[facility]s): 06/11/19 - 06/21/19 [facility] [address] [place] [address] Drive, [address] [place] [address]- [facility] Attending Physician: Admtamiko, Yoel8 Admitting Physician: Admtr, Ar8 Referring Physician: Admtr, Ar8 Allergies, Adverse Reactions, [...] Toxoid Vaccine (oldterm) 08/28/00 Given 1Result Comment: [id number] 2Admin Note: [facility] 3Admin Note: [facility] 4Result [...] 02/12/19 14:46:41 EDT, Route to Pharmacy Electronically, [id number], [facility] Start Date: 02/12/19 Status: Ordered [...] 06/03/19 9:09:00 EST, Route to Pharmacy Electronically, [facility], 162.5, cm,03/06/19 10:53:00 EST, Height [...]
--- OUTSIDE RECORDS SUMMARY | 2024-03-26 09:04 | XMS_ITS | Continuity of Care Document ---
Author Organization [facility] Address Unknown Care Team Providers Care Retail Cosmetics Sales Beauty Advisor Name Role Phone Yelena Fischer Primary Care Physician Encounter [facility] Date(s): 04/08/21 - 06/23/21 [facility] Attending Physician: Felicitas Dunbar MD Admitting [...] 08/28/00 Given 1Result Comment: PHARMACY 2Result Comment: [id number] 3Admin Note: [facility] 4Admin Note: [facility] 5Result Comment: [12/10/2014] [facility] 6Admin [facility] 7Admin Note: [facility] 03-22-13 8Result Comment: [id number] 9Admin Note: [facility] 03-22-13. Medications ALPRAZolam 0.5 mg oral tablet 0.5 mg, 1, tablet, By Mouth, 3 times a day, PRN, # 12 tablet, Refills 0, Tot. Refills 0, Maintenance, for anxiety, 04/26/21 16:49:00 EST, Route to Pharmacy Electronically, [facility] #[id number], 164, cm, 03/18/21 11:18:00 EST, Height, 96, [...] 0 Refills, Maintenance, 02/02/21 15:00:00 EDT, Tablet, [facility] #86328, Partial fill upon patient request if the prescription is for a schedule II opioid drug., 1... Start Date: 02/02/21 Status: Ordered methylphenidate 10 mg/8 hr oral tablet, extended release 1 tablet = 10 mg, By Mouth, Daily, # 30 tablet, 0 Refills, Maintenance, 05/27/21 14:21:00 EST, ER Tablet, [facility] #09230, 164, cm, 03/18/21 11:18:00 EST, Height, 96, [...] Active Obese class I(Confirmed) Active Obesity(Confirmed) Active [facility] prescription benzo diazepine use(Confirmed) Active Raynaud's phenomenon(Confirmed) 03/26/09 Active Situational anxiety(Confirmed) 03/01/12 Active Tinnitus(Confirmed) 01/20/08 Active Recurrent vertigo - BPPV(Confirmed) Active Social History Social History Type Response Smoking Status Never smoker entered on: 09/28/17 Sex
--- OUTSIDE RECORDS SUMMARY | 2024-03-26 09:04 | XMS_ITS | Continuity of Care Document ---
Author Organization [facility] Uriah Aung lt Address [address] [place] [address]- Care Team Providers Care Product Safety Tester Name Role Phone Santana Mccray MD Primary Care Physician [phone] Encounter [facility] Date(s): 11/14/19 - 11/21/19 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 Medications ALPRAZolam 0.5 mg oral tablet 0.5 mg, 1, tablet, By Mouth, 3 times a day, PRN, # 12 tablet, Refills 0, Tot. Refills 0, Maintenance, for anxiety, 08/27/19 16:07:00 EDT, Route to Pharmacy Electronically, [facility], 162.5, cm, 07/07/19 13:50:00 EDT, Height Start Date: 08/27/19 Status: Ordered meclizine 25 mg oral tablet 1 tablet = 25 mg, By Mouth, 2 times a day, PRN for dizziness, for 30 days, # 15 tablet, 0 Refills, Acute 11/22/19 6:59:00 EDT, 10/23/19 6:59:00 EDT, Tablet Start Date: 10/23/19 Stop Date: 11/22/19 Status: Ordered methylphenidate 10 mg/8 hr oral tablet, extended release 1 tablet = 10 mg, By Mouth, Daily, # 30 tablet, 0 Refills, Maintenance, 10/30/19 16:42:00 EDT, ER Tablet, [facility], 162.5, cm, 09/23/19 9:41:00 EDT, Height Start Date: 10/30/19 Status: Ordered Migranol Herbal Support Migranol Herbal Support, Refills 0, Maintenance, tid, 11/14/19 12:03:00 EDT, Supply Start Date: 11/14/19 Status: Ordered nortriptyline 10 mg oral capsule 20 mg, 2, capsule, By Mouth, Daily at bedtime, Start 1 cap bedtime x 2 weeks, then increase to 2 caps bedtime., # 60 capsule, Refills 5, Tot. Refills 5, Maintenance, 10/17/19 8:51:00 EDT, Route to Pharmacy Electronically, [facility], 162.5,... Start Date: 10/17/19 Stop Date: 04/14/20 Status: Ordered Vitamin B12 0 Refills, Maintenance, 09/23/19 9:44:00 EDT Start Date: 09/23/19 Status: Ordered Problem List Condition Effective Dates [...] Dates Health Status Cl inical Service Informant Female pattern baldness Discharge Diagnosis 11/14/19 Migraine with vertigo Discharge Diagnosis 11/14/19 Vital Signs Most recent to oldest [Reference Range]: 1 Height 162.5 cm (11/14/19 11:59 AM) Weight 92.6 kg (11/14/19 11:59 AM) Oxygen Saturation [94-100 %] 98 % (11/14/19 11:59 AM) Pulse Rate [55-90 bpm] 68 bpm (11/14/19 11:59 AM) Body Mass Index [18.5-24.99] 35.07 *>HHI* (11/14/19 11:59 AM) Blood Pressure [90-138/55-84 mm Hg] 122/ 76mm Hg (11/14/19 11:59 AM) Temperature [96.8-100.4 DegF] 98.0 DegF (11/14/19 11:59 AM) Mode of Delivery (Oxygen) Room air (11/14/19 11:59 AM) Blood pressure sites Arm, left (11/14/19 11:59 AM) Temperature Route Oral (11/14/19 11:59 AM) Weight Obtained Via Standing scale (11/14/19 11:59 AM) Social History Social History Type Response Smoking Status Never smoker entered on: 09/28/17 Sex
--- OUTSIDE RECORDS SUMMARY | 2024-03-26 09:04 | XMS_ITS | Continuity of Care Document ---
Author Organization [facility] Rashard Aung lt Address [address] [place] [address]- Care Team Providers Care Venetian Blind Washer Name Role Phone Shazia IVAN, Santana Shultz Primary Care Physician [phone] [facility]counter [facility] Date(s): 03/14/21 - 04/13/21 [facility] [address] [place] [address]- Allergies, Adverse Reactions, Alerts Substance Reaction Severity [...] 08/28/00 Given 1Result Comment: PHARMACY 2Result Comment: [id number] 3Admin Note: [facility] 4Admin Note: [facility] 5Result [...] 02/16/21 17:04:00 EDT, Route to Pharmacy Electronically, [facility] #[id number], 164, cm, 11/22/20 9:52:00 EDT, Height, 96, [...] 0 Refills, Maintenance, 02/02/21 15:00:00 EDT, Tablet, [email or web address] #08427, Partial fill upon patient request if the prescription is for a schedule II opioid drug., 1... 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
--- OUTSIDE RECORDS SUMMARY | 2024-03-26 09:05 | XMS_ITS | Continuity of Care Document ---
Author Organization [facility] Saran Wetzel Aung lt Address [address] [place] [address]- Care Team Providers Care Engineer Exhauster Name Role Phone Shazia IVAN, Santana Shultz Primary Care Physician [facility] Date[facility]s): 10/01/20 - 10/31/20 [facility] Starkley Adult [address] [place] [address]- Allergies, Adverse Reactions, Alerts Substance Reaction Severity [...] 08/28/00 Given 1Result Comment: PHARMACY 2Result Comment: [id number] 3Admin Note: [facility] 4Admin Note: [facility] 5Result [...] 09/09/20 16:37:00 EDT, Route to Pharmacy Electronically, [facility], 167.64, cm, 06/30/20 15:11:00 EST, [...] Refills, Maintenance, 10/02/20 8:26:00 EDT, ER Tablet, [facility], 167.64, cm, 06/30/20 15:11:00 EST, Height, 96, kg, 08/10/20 7:04:00 EDT, Dry Weight Start Date: 10/02/20 Status: Ordered nortriptyline 25 mg oral capsule 50 mg, 2, capsule, By Mouth, Daily at bedtime, 2 tabs at bedtime, # 60 capsule, Refills 5, Tot. Refills 5, Maintenance, 10/07/20 12:20:00 EDT, [id number], Dose reduced., 167.64, cm, 10/05/20 9:20:00 E... Start Date: 10/07/20 Stop Date: 04/05/21 Status: Ordered omeprazole 20 mg oral enteric coated capsule 1 capsule = 20 mg, By Mouth, Daily, # 14 capsule, 0 Refills, Maintenance, 08/18/20 9:40:00 EDT, EC Capsule, [facility], Partial fill upon patient request [...]
--- OUTSIDE RECORDS SUMMARY | 2024-03-26 09:05 | XMS_ITS | Continuity of Care Document ---
Author Organization [facility] Address [address] [facility], [address] Floor, [address] [place] [address]- Care Team Providers Care Carbon Plant Grinder Name Role Phone Shazia IVAN, Santana Shultz Primary Care Physician [facility] Date(s): 05/10/20 - 06/09/20 [facility] [address], [address], [address] [place] [address] Attending Physician: Ya Reyez Admitting Physician: AdmYa morrison Referring Physician: Admtr, Ya Allergies, Adverse Reactions, Alerts Substance Reaction Severity [...] 08/28/00 Given 1Result Comment: PHARMACY 2Result Comment: [id number] 3Admin Note: [facility] 4Admin Note: [facility] 5Result Comment: [12/10/2014] [facility] 6[facility] 7Admin Note: [facility] 03-22-13 8Result Comment: [id number] 9Admin Note: [facility] 03-22-13. Medications ALPRAZolam 0.5 mg oral tablet 0.5 mg, 1, tablet, By Mouth, 3 times a day, PRN, # 12 tablet, Refills 0, Tot. Refills 0, Maintenance, for anxiety, 05/24/20 9:44:00 EST, Route to Pharmacy Electronically, [facility], 167.64, cm, 05/24/20 9:15:00 EST, Height, 91.1, kg, 01/12... Start Date: 05/24/20 Status: Ordered magnesium oxide 400 mg oral tablet 1 tablet = 400 mg, By Mouth, Daily, for 30 days, Take with meal, # 30 tablet, 5 Refills, Acute 08/11/20 15:52:00 EDT, 02/13/20 15:52:00 EDT, [facility], 167.64, cm, 02/13/20 15:14:00 EDT, Height, 91.1, kg, 01/13/20 7:22:00 EDT, Dry Weight Start Date: 02/13/20 Stop Date: 08/11/20 Status: Ordered methylphenidate 10 mg/8 hr oral tablet, extended release 1 tablet = 10 mg, By Mouth, Daily, # 30 tablet, 0 Refills, Maintenance, 05/24/20 9:43:00 EST, ER Tablet, [facility], 167.64, cm, 05/24/20 9:15:00 EST, Height, 91.1, kg, 01/13/20 7:22:00 EDT, Dry Weight Start Date: 05/24/20 Status: Ordered nortriptyline 25 mg oral capsule 75 mg, 3, capsule, By Mouth, Daily at bedtime, # 90 capsule, Refills 5, Tot. Refills 5, Maintenance, 02/13/20 15:49:00 EDT, Route to Pharmacy Electronically, [facility], 167.64, cm, 02/13/20 15:14:00 [...]
--- OUTSIDE RECORDS SUMMARY | 2024-03-26 09:05 | XMS_ITS | Continuity of Care Document ---
Author Organization [facility] Address [address] [place] [address]- Care Team Providers Care Comb Winder Name Role Phone Yelena Fischer Primary Care Physician [facility] Date(s): 12/21/22 - 01/20/23 [facility] [address], [place] [address] Attending Physician: Ya Reyez Admitting Physician: Ya Reyez Referring Physician: AdmtrYa Allergies, Adverse Reactions, Alerts Substance Reaction Severity Status Reglan bruising Active Crestor Active Immunizations Given and Recorded Vaccine Date Status Refusal Reason [id number] bivalent booster vax 03/25/22 Recorded SARS-CoV-2 (COVID-19) [...] 08/28/00 Given 1Result Comment: PHARMACY 2Result Comment: [id number] 3Admin Note: [facility] 4Admin Note: [facility] 5Result Comment: [12/10/2014] [facility] 6[facility] 7Admin Note: [facility] 03-22-13 8Result Comment: [id number] 9Admin Note: [facility] 03-22-13. 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
--- OUTSIDE RECORDS SUMMARY | 2024-03-26 09:05 | XMS_ITS | Continuity of Care Document ---
Author Organization [facility] ter Address [address] [place] [address]- Care Team Providers Care Administration Vice President Name Role Phone Santana Mccray MD Primary Care Physician [place] [facility] [place] Date(s): 10/22/19 - 10/23/[address] [address]- [facility] Encounter Diagnosis Episodes of vertigo occurring infrequently(Final) - 10/23/19 Discharge Disposition: A-D/C Home Attending Physician: Mohan Bone MD Admitting Physician: Mohan Bone MD Referring Physician: Not on Staff, Referring MD Allergies, Adverse Reactions, Alerts Substance Reaction Severity Status NKA Active Medications meclizine 25 mg oral tablet 1 tablet = 25 mg, By Mouth, 2 times a day, PRN for dizziness, for 30 days, # 15 tablet, 0 Refills, Acute 11/22/19 6:59:00 EDT, 10/23/19 6:59:00 EDT, Tablet Start Date: 10/23/19 Stop Date: 11/22/19 Status: Ordered Vital Signs Most recent to oldest [Reference Range]: 1 2 3 Oxygen Saturation [94-100 %] 98 % (10/23/19 6:46 AM) 100 % (10/23/19 3:35 AM) 98 % (10/23/19 1:04 AM) Pulse Rate [55-90 bpm] 76 bpm (10/23/19 6:46 AM) 58 bpm (10/23/19 3:35 AM) 59 bpm (10/23/19 1:04 AM) Blood Pressure [90-138/55-84 mm Hg] 135/59mm Hg (10/23/19 6:46 AM) 149/74mm Hg *H* (10/23/19 3:35 AM) 139/77mm Hg *H* (10/23/19 1:04 AM) Respiratory Rate [16-30 br/min] 18 br/min (10/23/19 6:46 AM) 16 br/min (10/23/19 3:35 AM) 16 br/min (10/23/19 1:04 AM) Temperature [96.8-100.4 DegF] 97.8 DegF (10/23/19 6:46 AM) 98.2 DegF (10/23/19 3:35 AM) 97.8 DegF (10/23/19 1:04 AM) Mode of Delivery (Oxygen) room air (10/23/19 6:46 AM) Room air (10/23/19 3:35 AM) Room air (10/23/19 1:04 AM) Blood pressure sites Arm, left (10/23/19 6:46 AM) Arm, left (10/23/19 3:35 AM) Arm, left (10/23/19 1:04 AM) Temperature Route Oral (10/23/19 6:46 AM) Oral (10/23/19 3:35 AM) Oral (10/23/19 1:04 AM)
--- OUTSIDE RECORDS SUMMARY | 2024-03-26 09:05 | XMS_ITS | Continuity of Care Document ---
Author Organization [facility] Rashard Aung lt Address [address] [place] [address]- Care Team Providers Care Solar Energy Technician Name Role Phone Shazia IVAN, Santana Shultz Primary Care Physician [place] [facility] [place] 03/18[place]21 - 04/17/21 [facility] Adult [address] [place] [address]- Attending Physician: Admtr, Ar8 Allergies, Adverse Reactions, [...] 08/28/00 Given 1Result Comment: PHARMACY 2Result Comment: [id number] 3Admin Note: [facility] 4Admin Note: [facility] 5Result [...] 02/16/21 17:04:00 EDT, Route to Pharmacy Electronically, [facility] #60058, 164, cm, 11/22/20 9:52:00 EDT, Height, 96, [...] 0 Refills, Maintenance, 02/02/21 15:00:00 EDT, Tablet, [facility] #86187, Partial fill upon patient request if the prescription is for a schedule II opioid drug., 1... 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
--- OUTSIDE RECORDS SUMMARY | 2024-03-26 09:05 | XMS_ITS | Continuity of Care Document ---
Author Organization [facility] Address [address] [place] [address]- Care Team Providers Care Hand Bander Name Role Phone Esme HERNÁNDEZ, Yelena Mix Primary Care Physician Encounter [facility] [place] Date(s): 01/16/24 - 02/15/24 [facility] [address] [place] [address]- Attending Physician: Ya Reyez Admitting Physician: Ya [...] virus vaccine, inactivated 6 03/24/13 Gi ricci [id number] bivalent booster vax 03/25/22 Recorded SARS-CoV-2 (COVID-19) [...] Toxoid Vaccine (oldterm) 08/28/00 Given 1Result Comment: [id number] 2Admin Note: [facility] 3Admin Note: [facility] 4Result Comment: [12/10/2014] [facility] 6Admin Note: [facility] 03-22-13 7Result Comment: PHARMACY 8Result Comment: [id number] 9Admin Note: [facility] 03-22-13. Medications [...] tablet, Refills 0, Tot. Refills 0, Maintenance, 01/29/24 12:50:00 EDT, Route to Pharmacy Electronically, [id number], Partial fill upon patient request if the prescription is for a schedule II opioi... 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 Raynaud's phenomenon Confirmed 03/26/09 Active Situational anxiety Confirmed 03/01/12 Active Tinnitus Confirmed 01/20/08 Active Recurrent vertigo - BPPV Confirmed Active Social History Social History Type Response Smoking Status Never smoker entered on: 09/28/17 Sex Patient Care team information Care Team Personnel Name: Yelena Fischer Position: [facility] PCO Associate Professional Member Role: PCP Address: Address: [address] [place] [address]- Care Team Related Persons Name: SELMA TEE Address: home [address] [place] [address] Name: ELIDA TEE Address: home [address] [place] [id number]
--- OUTSIDE RECORDS SUMMARY | 2024-03-26 09:05 | XMS_ITS | Continuity of Care Document ---
Author Organization [facility] Address [address], [address] Floor, [address] [place] [address]- Care Team Providers Care Litigation Manager Name Role Phone Santana Mccray MD Primary Care Physician Encounter [facility] Date(s): 06/30/19 - 10/16/19 [facility] [address], [address] Floor, [address] [place] [address]- [facility] Attending Physician: Josie JADE, Efren Sargent Referring Physician: Santana Mccray MD Allergies, Adverse Reactions, [...] Toxoid Vaccine (oldterm) 08/28/00 Given 1Result Comment: [id number] 2Admin Note: [facility] 3Admin Note: [facility] 4Result [...] 08/27/19 16:07:00 EDT, Route to Pharmacy Electronically, [facility], 162.5, cm, 07/07/19 13:50:00 EDT, Height Start Date: 08/27/19 Status: Ordered methylphenidate 10 mg/8 hr oral tablet, extended release 1 tablet = 10 mg, By Mouth, Daily, # 30 tablet, 0 Refills, Maintenance, 09/30/19 16:56:00 EDT, ER Tablet, [facility], 162.5, cm, 09/23/19 9:41:00 EDT, Height Start Date: 09/30/19 Status: Ordered Migranal 4 mg/mL nasal spray 1 sprays, Nares, Both, Once, PRN at onset of migraine headache, in each nostril repeat in 15 minutes if needed maximum 4 doses/day , 8 doses/week, # 1 pack/packet, 1 Refills, Soft Stop, 09/23/19 15:39:00 EDT, [place], [facility], 162.5, cm,... Start Date: 09/23/19 Status: Ordered Vitamin B12 0 Refills, Maintenance, [...] with vertigo(Confirmed) Active Obesity(Confirmed) Active Raynaud's phenomenon(Confirmed) 11/27/09 Active Situational anxiety(Confirmed) 03/01/12 Active Tinnitus(Confirmed) 01/20/08 Active Tongue ulceration(Confirmed) 01/20/08 Active Recurrent vertigo(Confirmed) Active Social History Social History Type Response Smoking Status Never smoker entered on: 09/28/17 Sex
--- OUTSIDE RECORDS SUMMARY | 2024-03-26 09:05 | XMS_ITS | Continuity of Care Document ---
Author Organization [facility] Rashard Aung lt Address [address] [place] [address]- Care Team Providers Care Resource Development Manager Name Role Phone Santana Mccray MD Primary Care Physician Encounter [facility] [place] Date(s): 03/18/21 - 03/25/21 [facility] Adult [address] [place] [address]- Encounter Diagnosis Acute diarrhea(Discharge Diagnosis) - 03/18/21 Attending Physician: Santana Mccray MD Referring Physician: Tasha Garcia NP Allergies, Adverse Reactions, Alerts Substance Reaction Severity [...] 08/28/00 Given 1Result Comment: PHARMACY 2Result Comment: [id number] 3Admin Note: [facility] 4Admin Note: [facility] 5Result [...] 02/16/21 17:04:00 EDT, Route to Pharmacy Electronically, [facility] #[id number], 164, cm, 11/22/20 9:52:00 EDT, Height, 96, [...] 0 Refills, Maintenance, 02/02/21 15:00:00 EDT, Tablet, [facility] #[id number], Partial fill upon patient request if the prescription is for a schedule II opioid drug., 1... Start Date: 02/02/21 Status: Ordered methylphenidate 10 mg/8 hr oral tablet, extended release 1 tablet = 10 mg, By Mouth, Daily, # 30 tablet, 0 Refills, Maintenance, 03/14/21 17:16:00 EST, ER Tablet, [email or web address] #[id number], 164, cm, 03/09/21 9:19:00 EST, Height, 96, [...] Active Obese class I(Confirmed) Active Obesity(Confirmed) Active halfway prescription benzo diazepine use(Confirmed) Active Raynaud's phenomenon(Confirmed) 03/26/09 Active Situational anxiety(Confirmed) 03/01/12 Active Tinnitus(Confirmed) 01/20/08 Active Recurrent vertigo - BPPV(Confirmed) Active Diagnosis Diagnosis Type Effective Dates Health Status Cl inical Service Informant Acute diarrhea Discharge Diagnosis 03/18/21 Vital Signs Most recent to oldest [Reference Range]: 1 Height 164.0 cm (03/18/21 11:18 AM) Weight 91 kg (03/18/21 11:18 AM) Body Mass Index [18.5-24.99] 33.83 *>HHI* (03/18/21 11:18 AM) Temperature [96.8-100.4 DegF] 98.6 DegF (03/18/21 11:18 AM) Social History Social History Type Response Smoking Status Never smoker entered on: 09/28/17 Sex
--- OUTSIDE RECORDS SUMMARY | 2024-03-26 09:05 | XMS_ITS | Continuity of Care Document ---
Author Organization [facility] Saran Wetzel Aung lt Address [address] [place] [address]- Care Team Providers Care Promotional Demonstrator Name Role Phone Shazia IVAN, Santana Shultz Primary Care Physician [phone] Encounter [facility] Date(s): 05/18/20 - 06/17/20 [facility] Sar[facility] Wetzel Adult [address] [place] [address]- Allergies, Adverse Reactions, Alerts Substance Reaction Severity [...] 08/28/00 Given 1Result Comment: PHARMACY 2Result Comment: [id number] 3Admin Note: [facility] 4Admin Note: [facility] 5Result [...] 05/24/20 9:44:00 EST, Route to Pharmacy Electronically, [facility], 167.64, cm, 05/24/20 9:15:00 EST, Height, 91.1, kg, 01/12... Start Date: 05/24/20 Status: Ordered magnesium oxide 400 mg oral tablet 1 tablet = 400 mg, By Mouth, Daily, for 30 days, Take with meal, # 30 tablet, 5 Refills, Acute 08/11/20 15:52:00 EDT, 02/13/20 15:52:00 EDT, [facility], 167.64, cm, 02/13/20 15:14:00 EDT, Height, 91.1, kg, 01/13/20 7:22:00 EDT, Dry Weight Start Date: 02/13/20 Stop Date: 08/11/20 Status: Ordered methylphenidate 10 mg/8 hr oral tablet, extended release 1 tablet = 10 mg, By Mouth, Daily, # 30 tablet, 0 Refills, Maintenance, 05/24/20 9:43:00 EST, ER Tablet, [facility], 167.64, cm, 05/24/20 9:15:00 EST, Height, 91.1, kg, 01/13/20 7:22:00 EDT, Dry Weight Start Date: 05/24/20 Status: Ordered nortriptyline 25 mg oral capsule 75 mg, 3, capsule, By Mouth, Daily at bedtime, # 90 capsule, Refills 5, Tot. Refills 5, Maintenance, 02/13/20 15:49:00 EDT, Route to Pharmacy Electronically, [facility], 167.64, cm, 02/13/20 [...]
--- OUTSIDE RECORDS SUMMARY | 2024-03-26 09:05 | XMS_ITS | Continuity of Care Document ---
Author Organization [facility] Rashard Aung lt Address [address] [place] [address]- Care Team Providers Care Caustic Plant Worker Name Role Phone Yelena Fischer Primary Care Physician [phone] Encounter [facility] Date(s): 01/30/23 - 03/01/23 [facility] Adult [address] [place] [address]- Referring Physician: Skylar Perez Allergies, Adverse Reactions, Alerts Substance Reaction Severity Status Reglan bruising Active Crestor Active Immunizations Given and Recorded Vaccine Date Status Refusal Reason [id number] bivalent booster vax 03/25/22 Recorded SARS-CoV-2 (COVID-19) [...] 08/28/00 Given 1Result Comment: PHARMACY 2Result Comment: [id number] 3Admin Note: [facility] 4Admin Note: [facility] 5Result Comment: [12/10/2014] [facility] 6[facility] 7Admin Note: [facility] 03-22-13 8Result Comment: [id number] 9Admin Note: [facility] 03-22-13. Medications [...] Daily, # 30 tablet, 0 Refills, Maintenance, 01/30/23 15:14:00 EDT, ER Tablet, [facility], 163, cm, 01/08/23 11:46:00 EDT, Height, 94.1, kg, 01/08/23 7:00:00 EDT, Dry Weight Start Date: 01/30/23 Status: Ordered Nurtec ODT 75 mg oral [...] with vertigo Confirmed Active Obesity Confirmed Active intermediate prescription benzodiazepine use Confirmed Active Raynaud's phenomenon [...] Associate Professional Member Role: PCP Address: Address: [address] [place] [address] Care Team Related Persons Name: SELMA TEE Address: home [address] [place] [address] Name: ELIDA TEE Address: home [address] [place] [address]
--- OUTSIDE RECORDS SUMMARY | 2024-03-26 09:05 | XMS_ITS | Continuity of Care Document ---
Author Organization [facility] Rashard Aung lt Address [address] [place] [address]- Care Team Providers Care Kennel Technician Name Role Phone Yelena Fischer Primary Care Physician [place] [facility] [place] 06/29/21 - 07/29/21 [facility] Adult [address] [place] [address]- Allergies, Adverse Reactions, Alerts Substance Reaction Severity [...] 08/28/00 Given 1Result Comment: PHARMACY 2Result Comment: [id number] 3Admin Note: [facility] 4Admin Note: [facility] 5Result [...] 04/26/21 16:49:00 EST, Route to Pharmacy Electronically, [facility] #[id number], 164, cm, 03/18/21 11:18:00 EST, Height, 96, [...] 0 Refills, Maintenance, 02/02/21 15:00:00 EDT, Tablet, [facility] #[id number], Partial fill upon patient request if the prescription is for a schedule II opioid drug., 1... 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
--- OUTSIDE RECORDS SUMMARY | 2024-03-26 09:05 | XMS_ITS | Continuity of Care Document ---
Author Organization [facility] Mcgregor Aung lt Address [address] [place] [address]- Care Team Providers Care Windows Phone Developer Name Role Phone Yelena Fischer Primary Care Physician [phone] Encounter [facility] [place] Date(s): 07/24/23 - 08/23/23 [facility] Adult [address] [place] [address]- Allergies, Adverse Reactions, Alerts Substance Reaction Severity Status Reglan bruising Active Crestor Active Immunizations Given and Recorded Vaccine Date Status Refusal Reason [id number] bivalent booster vax 03/25/22 Recorded SARS-CoV-2 (COVID-19) [...] 08/28/00 Given 1Result Comment: PHARMACY 2Result Comment: [id number] 3Admin Note: [facility] 4Admin Note: [facility] 5Result Comment: [12/10/2014] [facility] 6[facility] 7Admin Note: [facility] 03-22-13 8Result Comment: [id number] 9Admin Note: [facility] 03-22-13. Medications [...] Daily, # 30 tablet, 0 Refills, Maintenance, 07/24/23 16:09:00 EDT, ER Tablet, [facility], 163, cm, 01/08/23 11:46:00 EDT, Height, 94.1, kg, 01/08/23 7:00:00 EDT, Dry Weight Start Date: 07/24/23 Status: Ordered Nurtec ODT 75 mg oral [...] with vertigo Confirmed Active Obesity Confirmed Active skilled nursing prescription benzodiazepine use Confirmed Active Raynaud's phenomenon [...] Associate Professional Member Role: PCP Address: Address: [address] [place] [id number] Care Team Related Persons Name: SELMA TEE Address: home [address] [place] [address] Name: ELIDA TEE Address: home [address] [place] [address]
--- OUTSIDE RECORDS SUMMARY | 2024-03-26 09:05 | XMS_ITS | Continuity of Care Document ---
Author Organization [facility] Saran Wetzel Aung lt Address [address] [place] [address]- Care Team Providers Care House Painter Name Role Phone Shazia IVAN, Santana Shultz Primary Care Physician Encounter [facility] Date(s): 05/18/20 - 06/17/20 [facility] Wetzel Adult [address] [place] [address]- Allergies, Adverse Reactions, Alerts Substance Reaction Severity [...] 08/28/00 Given 1Result Comment: PHARMACY 2Result Comment: [id number] 3Admin Note: [facility] 4Admin Note: [facility] 5Result [...] 05/24/20 9:44:00 EST, Route to Pharmacy Electronically, [facility], 167.64, cm, 05/24/20 9:15:00 EST, Height, 91.1, kg, 01/12... Start Date: 05/24/20 Status: Ordered magnesium oxide 400 mg oral tablet 1 tablet = 400 mg, By Mouth, Daily, for 30 days, Take with meal, # 30 tablet, 5 Refills, Acute 08/11/20 15:52:00 EDT, 02/13/20 15:52:00 EDT, [facility], 167.64, cm, 02/13/20 15:14:00 EDT, Height, 91.1, kg, 01/13/20 7:22:00 EDT, Dry Weight Start Date: 02/13/20 Stop Date: 08/11/20 Status: Ordered methylphenidate 10 mg/8 hr oral tablet, extended release 1 tablet = 10 mg, By Mouth, Daily, # 30 tablet, 0 Refills, Maintenance, 05/24/20 9:43:00 EST, ER Tablet, [facility], 167.64, cm, 05/24/20 9:15:00 EST, Height, 91.1, kg, 01/13/20 7:22:00 EDT, Dry Weight Start Date: 05/24/20 Status: Ordered nortriptyline 25 mg oral capsule 75 mg, 3, capsule, By Mouth, Daily at bedtime, # 90 capsule, Refills 5, Tot. Refills 5, Maintenance, 02/13/20 15:49:00 EDT, Route to Pharmacy Electronically, [facility], 167.64, cm, 02/13/20 15:14:00 [...]
--- OUTSIDE RECORDS SUMMARY | 2024-03-26 09:05 | XMS_ITS | Continuity of Care Document ---
Author Organization [facility] Address [address] [place] [address]- Care Team Providers Care Senior Instructional Designer Name Role Phone Shazia IVAN, Santana Shultz Primary Care Physician [phone] Encounter [facility] [place] Date(s): 01/13/21 - 04/19/[address] [address] Discharge Disposition: A-D/C Home Attending Physician: Donnell JADE, Lizbeth Sargent Admitting Physician: Lizbeth Jacobo NP Referring Physician: Lizbeth Jacobo NP Allergies, Adverse Reactions, Alerts Substance Reaction [...] 08/28/00 Given 1Result Comment: PHARMACY 2Result Comment: [id number] 3Admin Note: [facility] 4Admin Note: [facility] 5Result [...] 02/16/21 17:04:00 EDT, Route to Pharmacy Electronically, [facility] #[id number], 164, cm, 11/22/20 9:52:00 EDT, Height, 96, [...] 0 Refills, Maintenance, 02/02/21 15:00:00 EDT, Tablet, [facility] #[id number], Partial fill upon patient request if the prescription is for a schedule II opioid drug., 1... Start Date: 02/02/21 Status: Ordered methylphenidate 10 mg/8 hr oral tablet, extended release 1 tablet = 10 mg, By Mouth, Daily, # 30 tablet, 0 Refills, Maintenance, 04/18/21 17:05:00 EST, ER Tablet, [facility] #[id number], 164, cm, 03/18/21 11:18:00 EST, Height, 96, kg, 08/10/20 7:04:00EDT, Dry Weight Start Date: 04/18/21 Status: Ordered Slow Fe (as elemental iron) [...]
--- OUTSIDE RECORDS SUMMARY | 2024-03-26 09:05 | XMS_ITS | Continuity of Care Document ---
Author Organization [facility] Rashard Aung lt Address [address] [place] [address]- Care Team Providers Care Exchange Operator Name Role Phone Yelena Fischer Primary Care Physician [phone] Encounter [facility] [place] Date(s): 08/27/23 - 09/26/23 [facility] Adult [address] [place] [address]- Allergies, Adverse Reactions, Alerts Substance Reaction Severity Status Reglan bruising Active Crestor Active Immunizations Given and Recorded Vaccine Date Status Refusal Reason [id number] bivalent booster vax 03/25/22 Recorded SARS-CoV-2 (COVID-19) [...] 08/28/00 Given 1Result Comment: PHARMACY 2Result Comment: [id number] 3Admin Note: [facility] 4Admin Note: [facility] 5Result Comment: [12/10/2014] [facility] 7Admin Note: [facility] 03-22-13 8Result Comment: [id number] 9Admin Note: [facility] 03-22-13. Medications [...] Daily, # 30 tablet, 0 Refills, Maintenance, 08/27/23 14:25:00 EDT, ER Tablet, [facility], 163, cm, 01/08/23 11:46:00 EDT, Height, 94.1, kg, 01/08/23 7:00:00 EDT, Dry Weight Start Date: 08/27/23 Status: Ordered Nurtec ODT 75 mg oral [...] with vertigo Confirmed Active Obesity Confirmed Active meterman prescription benzodiazepine use Confirmed Active Raynaud's phenomenon [...] Associate Professional Member Role: PCP Address: Address: [address] [place] [id number] Care Team Related Persons Name: SELMA TEE Address: home [address] [place] [address] Name: ELIDA TEE Address: home [address] [place] [address]
--- OUTSIDE RECORDS SUMMARY | 2024-03-26 09:05 | XMS_ITS | Continuity of Care Document ---
Author Organization [facility] Address Unknown Care Team Providers Care Novelty Twister Tender Name Role Phone Shazia IVAN, Santana Shultz Primary Care Physician Encounter [facility] [place] Date(s): 01/13/21 - 02/23/21 [facility] Attending Physician: Felicitas Dunbar MD Admitting [...] 08/28/00 Given 1Result Comment: PHARMACY 2Result Comment: [id number] 3Admin Note: [facility] 4Admin Note: [facility] 5Result Comment: [12/10/2014] [facility] 6[facility] 7Admin Note: [facility] 03-22-13 8Result Comment: [id number] 9Admin Note: [facility] 03-22-13. Medications ALPRAZolam 0.5 mg oral tablet 0.5 mg, 1, tablet, By Mouth, 3 times a day, PRN, # 12 tablet, Refills 0, Tot. Refills 0, Maintenance, for anxiety, 02/16/21 17:04:00 EDT, Route to Pharmacy Electronically, [facility] #[id number], 164, cm, 11/22/20 9:52:00 EDT, Height, 96, [...] 0 Refills, Maintenance, 02/02/21 15:00:00 EDT, Tablet, [facility] #[id number], Partial fill upon patient request if the prescription is for a schedule II opioid drug., 1... 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
--- OUTSIDE RECORDS SUMMARY | 2024-03-26 09:05 | XMS_ITS | Continuity of Care Document ---
Author Organization [facility] Address Unknown Care Team Providers Care Therapeutic Strategy Lead Name Role Phone Santana Mccray MD Primary Care Physician [phone] [place] [facility] [place](s): 12/31/20 - 01/30/21 [facility] Allergies, Adverse Reactions, Alerts Substance Reaction Severity [...] 08/28/00 Given 1Result Comment: PHARMACY 2Result Comment: [id number] 3Admin Note: [facility] 4Admin Note: [facility] 5Result Comment: [12/10/2014] [facility] 6[facility] 7Admin Note: [facility] 03-22-13 8Result Comment: [id number] 9Admin Note: [facility] 03-22-13. Medications ALPRAZolam 0.5 mg oral tablet 0.5 mg, 1, tablet, By Mouth, 3 times a day, PRN, # 12 tablet, Refills 0, Tot. Refills 0, Maintenance, for anxiety, 11/22/20 10:20:00 EDT, Route to Pharmacy Electronically, [facility] #[id number], 164, cm, 11/22/20 9:52:00 EDT, Height, 96, [...] Daily, # 30 tablet, 0 Refills, Maintenance, 01/05/21 12:22:00 EDT, ER Tablet, [facility] #[id number], 164, cm, 11/22/20 9:52:00 EDT, Height, 96, kg, 08/10/20 7:04:00 EDT, Dry Weight Start Date: 01/05/21 Status: Ordered nortriptyline 25 mg oral capsule 50 mg, 2, capsule, By Mouth, Daily at bedtime, 2 tabs at bedtime, # 60 capsule, Refills 5, Tot. Refills 5, Maintenance, 10/07/20 12:20:00 EDT, Route to Pharmacy Electronically, [facility] #23642, Dose reduced., 167.64, cm, 10/05/20 9:20:00 E... 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
--- OUTSIDE RECORDS SUMMARY | 2024-03-26 09:05 | XMS_ITS | Continuity of Care Document ---
Author Organization [facility] Rashard Aung lt Address [address] [place] [address]- Care Team Providers Care Retail Sales Teammate Name Role Phone Shzaia IVAN, Santana Shultz Primary Care Physician Encounter [facility] Date(s): 03/10/21 - 04/09/21 [facility] [place] Adult [address] [place] [address]- Allergies, Adverse Reactions, Alerts Substance Reaction Severity [...] 08/28/00 Given 1Result Comment: PHARMACY 2Result Comment: [id number] 3Admin Note: [facility] 4Admin Note: [facility] 5Result [...] 02/16/21 17:04:00 EDT, Route to Pharmacy Electronically, [facility] #[id number], 164, cm, 11/22/20 9:52:00 EDT, Height, 96, [...] 0 Refills, Maintenance, 02/02/21 15:00:00 EDT, Tablet, [facility] #[id number], Partial fill upon patient request if the prescription is for a schedule II opioid drug., 1... 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
--- OUTSIDE RECORDS SUMMARY | 2024-03-26 09:05 | XMS_ITS | Continuity of Care Document ---
Author Organization [facility] Aung lt Address [address] [place] [address]- Care Team Providers Care Binder Roller Name Role Phone Esme HERNÁNDEZ, Yelena Mix Primary Care Physician [place] [facility] [place] 12[place]/22 [facility] Adult [address] [place] [address]- Referring Physician: Skylar Perez Allergies, Adverse Reactions, Alerts Substance Reaction Severity Status Reglan bruising Active Immunizations Given and Recorded Vaccine Date Status Refusal Reason [id number] bivalent booster vax 03/25/22 Recorded SARS-CoV-2 (COVID-19) [...] 08/28/00 Given 1Result Comment: PHARMACY 2Result Comment: [id number] 3[facility] Note[facility] 4Admin Note: [facility] 5Result [...] 04/26/21 16:49:00 EST, Route to Pharmacy Electronically, [facility] #[id number], 164, cm, 03/18/21 11:18:00 EST, Height, 96, [...] 0 Refills, Maintenance, 02/02/21 15:00:00 EDT, Tablet, [facility] #[id number], Partial fill upon patient request if the [...] EDT, Height Start Date: 12/15/22 Status: Ordered methylphenidate 10 mg/8 hr oral tablet, extended release 1 tablet = 10 mg, By Mouth, Daily, # 30 tablet, 0 Refills, Maintenance, 04/07/22 17:37:00 EST, ER Tablet, [id number], Partial fill upon patient request if the prescription is for a schedule II opioid drug., 164, cm, 12/12/21 14:34:00 EDT... Start Date: 04/07/22 Status: Ordered prochlorperazine 10 mg oral tablet 0 Refills, Maintenance, 12/12/21 14:49:00 EDT, Partial fill upon patient request if the prescription is for a schedule II opioid drug. Start Date: 12/12/21 Status: Ordered sertraline 100 mg oral tablet [...] opioid drug. Start Date: 10/05/20 Status: Ordered topiramate 100 mg oral tablet [...] with vertigo Confirmed Active Obesity Confirmed Active [facility] prescription benzodiazepine use Confirmed Active Raynaud's phenomenon Confirmed 03/26/09 Active Severe obesity (BMI 35.0-39.9) with comorbidity Confirmed Active Situational anxiety Confirmed 03/01/12 Active Tinnitus Confirmed 01/20/08 Active Recurrent vertigo - BPPV Confirmed Active Social History Social History Type Response Smoking Status Never smoker entered on: 09/28/17 Sex Patient Care team information Care Team Personnel Name: Yelena Fischer Position: [facility] PCO Associate Professional Member Role: PCP Address: Address: [address] [place] [address]- Care Team Related Persons Name: SELMA TEE Address: home [address] [place] [address] Name: ELIDA TEE Address: home [address] [place] [id number]
--- OUTSIDE RECORDS SUMMARY | 2024-03-26 09:05 | XMS_ITS | Continuity of Care Document ---
Author Organization [facility] [place] Address [address] [address] [place] [address]- Care Team Providers Care Digital Court Reporter Name Role Phone Santana Mccray MD Primary Care Physician Encounter 12/27/20 - 01/03/21 [facility] [place] [address], [address] [place] [address]- Attending Physician: Santana Mccray MD Admitting Physician: Santana Mccray MD Referring Physician: Santana Mccray MD Allergies, Adverse [...] 08/28/00 Given 1Result Comment: PHARMACY 2Result Comment: [id number] 3Admin Note: [facility] 4Admin Note: [facility] 5Result Comment: [12/10/2014[facility] 7Admin Note: [facility] 03-22-13 8Result Comment: [id number] 9Admin Note: [facility] 03-22-13. Medications ALPRAZolam 0.5 mg oral tablet 0.5 mg, 1, tablet, By Mouth, 3 times a day, PRN, # 12 tablet, Refills 0, Tot. Refills 0, Maintenance, for anxiety, 11/22/20 10:20:00 EDT, Route to Pharmacy Electronically, [facility] #[id number], 164, cm, 11/22/20 9:52:00 EDT, Height, 96, [...] Refills, Maintenance, 12/01/20 16:46:00 EDT, ER Tablet, [facility] #[id number], 164, cm, 11/22/20 9:52:00 EDT, Height, 96, kg, 08/10/20 7:04:00 EDT, Dry Weight Start Date: 12/01/20 Status: Ordered nortriptyline 25 mg oral capsule 50 mg, 2, capsule, By Mouth, Daily at bedtime, 2 tabs at bedtime, # 60 capsule, Refills 5, Tot. Refills 5, Maintenance, 10/07/20 12:20:00 EDT, Route to Pharmacy Electronically, [facility] #[id number], Dose reduced., 167.64, cm, 10/05/20 9:20:00 E... 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
--- OUTSIDE RECORDS SUMMARY | 2024-03-26 09:05 | XMS_ITS | Continuity of Care Document ---
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 Phone Santana Mccray MD Primary Care Physician [phone] [place] [facility] [place] 09/16/[address] [address] Attending Physician: Santana Mccray MD Admitting Physician: Santana Mccray MD Referring Physician: Lauri Fair MD Allergies, Adverse Reactions, Alerts Substance Reaction [...] 08/28/00 Given 1Result Comment: PHARMACY 2Result Comment: [id number] 3Admin Note: [facility] 4Admin Note: [facility] 5Result Comment: [12/10/2014[facility] 7Admin Note: [facility] 03-22-13 8Result Comment: [id number] 9Admin Note: [facility] 03-22-13. Medications ALPRAZolam 0.5 mg oral tablet 0.5 mg, 1, tablet, By Mouth, 3 times a day, PRN, # 12 tablet, Refills 0, Tot. Refills 0, Maintenance, for anxiety, 09/09/20 16:37:00 EDT, Route to Pharmacy Electronically, [facility], 167.64, cm, 06/30/20 15:11:00 EST, Height, 96, kg, 08/10... Start Date: 09/09/20 Status: Ordered Excedrin By Mouth, 0 Refills, Maintenance, 08/04/20 11:06:00 EDT, Partial fill upon patient request if the prescription is for a schedule II opioid drug. Start Date: 08/04/20 Status: Ordered methylphenidate 10 mg/8 hr oral tablet, extended release 1 tablet = 10 mg, By Mouth, Daily, # 30 tablet, 0 Refills, Maintenance, 09/02/20 17:05:00 EDT, ER Tablet, [facility], 167.64, cm, 06/30/20 15:11:00 EST, Height, 96, kg, 08/10/20 7:04:00 EDT, Dry Weight Start Date: 09/02/20 Status: Ordered nortriptyline 25 mg oral capsule 75 mg, 3, capsule, By Mouth, Daily at bedtime, # 90 capsule, Refills 5, Tot. Refills 5, Maintenance, 02/13/20 15:49:00 EDT, Route to Pharmacy Electronically, [facility], 167.64, cm, 02/13/20 15:14:00 EDT, Height, 91.1, kg, 01/13/20 7:22:00... Start Date: 02/13/20 Stop Date: 08/11/20 Status: Ordered omeprazole 20 mg oral enteric coated capsule 1 capsule = 20 mg, By Mouth, Daily, # 14 capsule, 0 Refills, Maintenance, 08/18/20 9:40:00 EDT, EC Capsule, [facility], Partial fill upon patient request if the prescription is for a schedule II opioid drug., 167.64, cm, 06/30/20 15:11:00 E... Start Date: 08/18/20 Stop Date: 09/01/20 Status: Ordered Problem List Condition Effective Dates [...]
--- OUTSIDE RECORDS SUMMARY | 2024-03-26 09:05 | XMS_ITS | Continuity of Care Document ---
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 Name Role Phone Santana Mccray MD Primary Care Physician Encounter [facility] [place] Date(s): 09/19/19 - 09/26/19 [facility] [address], [address], [address] [place] [address]- [facility] Attending Physician: Josie JADE, Efren [...] Toxoid Vaccine (oldterm) 08/28/00 Given 1Result Comment: [id number] 2Admin Note: [facility] 3Admin Note: [facility] 4Result [...] 08/27/19 16:07:00 EDT, Route to Pharmacy Electronically, [facility], 162.5, cm, 07/07/19 13:50:00 EDT, Height Start Date: 08/27/19 Status: Ordered methylphenidate 10 mg/8 hr oral tablet, extended release 1 tablet = 10 mg, By Mouth, Daily, # 30 tablet, 0 Refills, Maintenance, 08/22/19 13:20:00 EDT, ER Tablet, [facility], 162.5, cm, 07/07/19 13:50:00 EDT, Height Start Date: 08/22/19 Status: Ordered Migranal 4 mg/mL nasal spray 1 sprays, Nares, Both, Once, PRN at onset of migraine headache, in each nostril repeat in 15 minutes if needed maximum 4 doses/day , 8 doses/week, # 1 pack/packet, 1 Refills, Soft Stop, 09/23/19 15:39:00 EDT, [place], [facility], 162.5, cm,... Start Date: 09/23/19 [...]
--- OUTSIDE RECORDS SUMMARY | 2024-03-26 09:05 | XMS_ITS | Continuity of Care Document ---
Author Organization [facility] Aung lt Address [address] [place] [address]- Care Team Providers Care Cutter Down Name Role Phone Esme HERNÁNDEZ, Yelena Mix Primary Care Physician [phone] Encounter [facility] [place] Date(s): 12/17/23 - 01/16/24 [facility] Adult [address] [place] [address]- Allergies, Adverse Reactions, Alerts Substance Reaction Severity [...] virus vaccine, inactivated 6 03/24/13 Gi ricci [id number] bivalent booster vax 03/25/22 Recorded SARS-CoV-2 (COVID-19) [...] Toxoid Vaccine (oldterm) 08/28/00 Given 1Result Comment: [id number] 2Admin Note: [facility] 3Admin Note: [facility] 4Result Comment: [12/10/2014] [facility] 5[facility] 6Admin Note: [facility] 03-22-13 7Result Comment: PHARMACY 8Result Comment: [id number] 9Admin Note: [facility] 03-22-13. 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O Associate Professional Member Role: PCP Address: Address: [address] [place] [address]- Care Team Related Persons Name: SELMA TEE Address: home [address] [place] [address] Name: ELIDA TEE Address: home [address] [place] [address]
--- OUTSIDE RECORDS SUMMARY | 2024-03-26 09:06 | XMS_ITS | Continuity of Care Document ---
Author Organization [facility] Saran Wetzel Aung lt Address [address] [place] [address]- Care Team Providers Care Phone Operator Name Role Phone Shazia IVAN, Santana Shultz Primary Care Physician [phone] Encounter [facility] Date(s): 09/23/19 - 10/23/19 [facility] Adult [address] [place] [address]- [facility] Attending Physician: Admtr, Ar8 Allergies, Adverse Reactions, [...] Toxoid Vaccine (oldterm) 08/28/00 Given 1Result Comment: [id number] 2Admin Note: [facility] 3Admin Note: [facility] 4Result [...] 08/27/19 16:07:00 EDT, Route to Pharmacy Electronically, [facility], 162.5, cm, 07/07/19 13:50:00 EDT, Height Start Date: 08/27/19 Status: Ordered methylphenidate 10 mg/8 hr oral tablet, extended release 1 tablet = 10 mg, By Mouth, Daily, # 30 tablet, 0 Refills, Maintenance, 09/30/19 16:56:00 EDT, ER Tablet, [facility], 162.5, cm, 09/23/19 9:41:00 EDT, Height Start Date: 09/30/19 Status: Ordered Migranal 4 mg/mL nasal spray 1 sprays, Nares, Both, Once, PRN at onset of migraine headache, in each nostril repeat in 15 minutes if needed maximum 4 doses/day , 8 doses/week, # 1 pack/packet, 1 Refills, Soft Stop, 09/23/19 15:39:00 EDT, [place], [facility], 162.5, cm,... Start Date: 09/23/19 Status: Ordered nortriptyline 10 mg oral capsule 20 mg, 2, capsule, By Mouth, Daily at bedtime, Start 1 cap bedtime x 2 weeks, then increase to 2 caps bedtime., # 60 capsule, Refills 5, Tot. Refills 5, Maintenance, 10/17/19 8:51:00 EDT, Route to Pharmacy Electronically, [facility], 162.5,... Start Date: 10/17/19 Stop [...]
--- OUTSIDE RECORDS SUMMARY | 2024-03-26 09:06 | XMS_ITS | Continuity of Care Document ---
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 Medications ALPRAZolam 0.5 mg oral tablet 0.5 mg, 1, tablet, By Mouth, 3 times a day, PRN, # 12 tablet, Refills 0, Tot. Refills 0, Maintenance, for anxiety, 09/09/20 16:37:00 EDT, Route to Pharmacy Electronically, [facility], 167.64, cm, 06/30/20 15:11:00 EST, [...] Refills, Maintenance, 09/02/20 17:05:00 EDT, ER Tablet, [facility], 167.64, cm, 06/30/20 15:11:00 EST, Height, 96, kg, 08/10/20 7:04:00 EDT, Dry Weight Start Date: 09/02/20 Status: Ordered nortriptyline 25 mg oral capsule 75 mg, 3, capsule, By Mouth, Daily at bedtime, # 90 capsule, Refills 5, Tot. Refills 5, Maintenance, 02/13/20 15:49:00 EDT, Route to Pharmacy Electronically, [facility], 167.64, cm, 02/13/20 15:14:00 EDT, Height, 91.1, kg, 01/13/20 7:22:00... Start Date: 02/13/20 Stop Date: 08/11/20 Status: Ordered omeprazole 20 mg oral enteric coated capsule 1 capsule = 20 mg, By Mouth, Daily, # 14 capsule, 0 Refills, Maintenance, 08/18/20 9:40:00 EDT, EC Capsule, [facility], Partial fill upon patient request [...]
--- OUTSIDE RECORDS SUMMARY | 2024-03-26 09:06 | XMS_ITS | Continuity of Care Document ---
Author Organization [facility] ter Address [address] [place] [id number]- Care Team Providers Care Executive Search Consultant Name Role Phone Esme HERNÁNDEZ, Yelena Mix Primary Care Physician [phone] Encounter [facility] Date(s): 01/08/23 - 01/08/[address] [id number] Discharge Disposition: A-D/C Home Attending Physician: Luciano Sauer MD Admitting Physician: Luciano Sauer MD Referring Physician: Luciano Sauer MD Allergies, Adverse Reactions, Alerts Substance Reaction Severity Status Reglan bruising Active Crestor Active Immunizations Given and Recorded Vaccine Date Status Refusal Reason [id number] bivalent booster vax 03/25/22 Recorded SARS-CoV-2 (COVID-19) [...] 08/28/00 Given 1Result Comment: PHARMACY 2Result Comment: [id number] 3[facility] 5[facility] Comment[facility]12/10/2014[facility] 7[facility] Note: [facility] 03-22-13 8Result Comment: [id number] 9Admin Note: [facility] 03-22-13. Medications [...] a sche... Start Date: 12/21/22 Status: Ordered oxyCODONE 5 mg oral tablet See Instructions, PRN, Take 1-2 tablets every 4 hours as needed for moderate to severe pain., # 84 tablet, Refills 0, Tot. Refills 0, Acute 01/15/23 8:00:00 EDT, Pain , Moderate, 01/08/23 11:02:00 EDT, Instructions Replace Required Details, Route to P... Start Date: 01/08/23 Stop Date: 01/15/23 Status: Ordered pantoprazole 40 mg oral delayed [...] opioid drug. Start Date: 09/04/22 Status: Ordered traMADol 50 mg oral tablet See Instructions, PRN Pain , Mild, Take 1-2 tablets every 6 hours as needed for mild pain. not to exceed 400 mg/day, # 56 tablet, 0 Refills, Acute 01/15/23 8:00:00 EDT, 01/08/23 11:01:00 EDT, Tablet,[facility], Partial fill upon pat... Start Date: 01/08/23 Stop Date: 01/15/23 Status: Ordered Vitamin B2 100 mg oral [...] Active Recurrent vertigo - BPPV Confirmed Active Results Radiology Reports * Exam Date Time Procedure Performing Provider Status 01/08/23 10:54 AM Knee 1 or 2 Views Left Renu Ovalle; Auth (Verified) Notes: (Knee 1 or 2 Views Left) Reason For Exam: Postop RESULT: Knee 1 or 2 Views Left Knee 1 or 2 Views Left INDICATION: Reason: Postop; Clinical Question(s): Other:; Implant Position; Special Instructions: To be done in PACU, No flexed knee in the lateral position. Keep leg straight; 2 Views TECHNIQUE: AP and lateral views. COMPARISON: None. FINDINGS: The patient has had a total knee replacement. There is satisfactory positioning of the femoral and tibial components of the knee replacement. There is no fracture. IMPRESSION: 1. Satisfactory initial postoperative appearance total knee replacement. 2. No fracture seen WSN: [id number] Ordering Physician: William Mariee Dictated By: Marcus Harper MD Dictated Date/Time: 01/08/23 11:31 a Reviewed By: Marcus Harper MD Signed By: Marcus Harper MD Signed Date/Time: 01/08/23 11:31 am Transcribed By: JONA Transcribed Date/Time: 01/08/23 11:31 am Vital Signs Most recent to oldest [Reference Range]: 1 2 3 Height 163 cm (01/08/23 11:46 AM) 163 cm (01/08/23 6:27 AM) Oxygen Saturation [94-100 %] 90 % *L* (01/08/23 12:15 PM) 90 % *L* (01/08/23 12:00 PM) 100 % (01/08/23 11:45 AM) Pulse Rate [55-90 bpm] 59 bpm (01/08/23 6:27 AM) Blood Pressure [90-138/55-84 mm Hg] 119/68mm Hg (01/08/23 12:15 PM) 119/68mm Hg (01/08/23 12:00 PM) 151/85mm Hg *H* (01/08/23 11:30 AM) Respiratory Rate [16-30 br/min] 25 br/min (01/08/23 12:15 PM) 25 br/min (01/08/23 12:00 PM) 15 br/min *L* (01/08/23 11:45 AM) Temperature [96.8-100.4 DegF] 97.6 DegF (01/08/23 11:30 AM) 97.2 DegF (01/08/23 10:15 AM) 97.8 DegF (01/08/23 6:27 AM) Liters per Minute 3 L/min (01/08/23 8:15 AM) 3 L/min (01/08/23 8:05 AM) Mode of Delivery (Oxygen) Room air (01/08/23 11:30 AM) Room air (01/08/23 11:15 AM) Room air (01/08/23 11:00 AM) Blood pressure sites Arm, left (01/08/23 11:30 AM) Arm, left (01/08/23 10:15 AM) Arm, right (01/08/23 8:15 AM) Temperature Route Temporal (01/08/23 11:30 AM) Temporal (01/08/23 10:15 AM) Temporal (01/08/23 6:27 AM) Dry Weight 94.1 kg (01/08/23 6:27 AM) Dry Weight Obtained Via Standing scale (01/08/23 6:27 AM) Social History Social History Type Response Smoking Status Never smoker entered on: 09/28/17 Sex History and physical note * Thaddeus Chiu NP: MODIFY Event Display: History and Physical Hospital Authored Date: [id number] SURGICAL HISTORY AND PHYSICAL DATE: 01/08/2023 PRIMARY DIAGNOSIS: Osteoarthritis of bilateral knees, left being greater than the right. REASON FOR ADMISSION: The patient has been admitted for left total knee arthroplasty with Dr. Jay 01/08/2023. HISTORY OF PRESENT ILLNESS: The patient is a 72-year-old female presenting today with bilateral knee pain, left being greater than the right. Her pain has been going on for several years and has beengetting progressively worse. Her pain level is 6/10 in intensity at rest, increasing to 9/10 in intensity with weightbearing activities. The patient reports significant activity limitations, which include difficulty walking any prolonged distances, pivoting and stairs. She has difficulty getting inand out of the car and chair and transitioning from sit to stand. She had a right knee arthroscopy x2 in the past. She has had corticosteroid injections in the past with minimal benefit. She had mildbenefit from viscosupplementation. The patient has been taking ibuprofen in order to manage her symptoms unfortunately with minimal effect. She will stop this in preparation for the surgery. She states that she is now ready for left total knee arthroplasty with Dr. Sauer on 01/08/2023. PAST MEDICAL HISTORY: 1. Osteoarthritis of bilateral knees, left being greater than the right. 2. Migraine headaches. 3. Vertigo. 4. Obesity with BMI of 37. 5. ADD. 6. Anxiety. 7. Hiatal hernia. 8. Decreased hearing to the left ear. 9. Hypertension. 10. Hyperlipidemia. 11. Fall at home 3-1/2 weeks ago after which she developed a large bruits to the left knee. There is currently no open areas and bruising is resolving. 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 13. Herpes labialis. 14. Iron deficiency anemia. 15. Raynaud's disease. 16. Tinnitus. PAST SURGICAL HISTORY: 1. Right knee arthroscopy x2. 2. EGD. CURRENT MEDICATION LIST: 1. Gabapentin 900 mg daily at bedtime. 2. Sertraline 50 mg daily in the morning. 3. Topiramate 100 mg daily in the morning. 4. Methylphenidate 10 mg daily in the morning. 5. Nurtec ODT 75 mg at the onset of migraines as needed. 6. Aimovig 75 mg injection monthly. 7. Riboflavin 200 mg daily in the morning. 8. Iron 45 mg daily in the morning. 9. Hydroxyzine 25 mg as needed. 10. Pramipexole ____ mg nightly as needed. 11. Ibuprofen as needed for pain. ALLERGIES: The patient is allergic to REGLAN and CRESTOR. SOCIAL HISTORY: The patient lives at home. She will have support of her daughter postoperatively. She denies any use of tobacco products, alcohol use or illicit drug use. PHYSICIANS: Her primary care provider, Yelena Victoria. REVIEW OF SYSTEMS: Negative with exception of HPI. PHYSICAL EXAMINATION: VITAL SIGNS: Height 64 inches tall, weight 211 pounds. Temperature 96.6, blood pressure 134/78, pulse 56. GENERAL: The patient is alert and oriented. Normal insight, affect, and grooming. HEENT: Normocephalic. Conjunctivae pink. Sclerae are anicteric. SKIN: Intact without rash or lesions. Nails without clubbing or cyanosis. There is a large feeding bruits noted over the left knee. NECK: Supple. Trachea midline. No lymphadenopathy. CHEST: Lungs are clear to auscultation bilaterally. Breathing is unlabored. CARDIOVASCULAR: Heart has a regular rate and rhythm with normal S1, S2. No murmurs, rubs or gallopsappreciated. No JVD. Carotid pulses without bruits. ABDOMEN: Soft, nontender with normal bowel sounds, no hepatosplenomegaly or masses noted. No bruitsappreciated. EXTREMITIES: The patient has negative straight leg raise test bilaterally. Bilateral hips have fullrange of motion with no pain, no trochanteric tenderness. Left knee has medial joint line pain. Knee range of motion is 0-110 degrees. There is varus deformity. The knee is stable to varus valgus loading, anterior and posterior drawer testing, Mango testing. No erythema, no redness. There is moderate subpatellar crepitus. Motor sensation screening is intact. Calves supple and nontender. Ankle motion is satisfactory. Pedal pulse palpable bilaterally. Skin on her feet is intact. PREOPERATIVE DIAGNOSTIC DATA: EKG reads sinus bradycardia at 52 beats per minute. Orthopedic x-raysdemonstrate end-stage osteoarthritis of bilateral knees, left being greater than the right with [id number]-uf-[id number] articulation, subchondral sclerosis and osteophyte formation. There is varus deformity and there is patellofemoral involvement. There is Kellgren-Silvio grade 4 osteoarthritis. ASSESSMENT AND PLAN: The patient has advanced osteoarthritis of bilateral knees, left being greaterthan the right and is now scheduled for left total knee arthroplasty with Dr. Sauer on 01/08/2023. The patient was seen by the medical consultative preoperative clinic, who stated that the patient isat low risk for perioperative cardiovascular and pulmonary complications. The patient will receive intravenous tranexamic acid. She will be on aspirin postoperatively for DVT prophylaxis. Discharge plans will be to home. The patient wishes to go home the day of surgery. The patient has been counseled regarding the risks and benefits of proposed surgery. All questions have been answered and she ack nowledges understanding. The patient wished to proceed with surgery and signed consents. Prescriptions for aspirin, Celebrex, Colace and pantoprazole were given to her at this office visit. The patient will receive prescriptions for pain medications prior to discharge. CONTACTS: Her son, Selma, with a cell phone number [phone]. Dictated by: Thaddeus Chiu N.P. Signing Clinician: Luciano Sauer M.D. Dictated: 12/28/2022 11:04:50 Transcribed: 06:28:48 AM Transcribed by: EFRAIN/JOHN/LINDA DocID: [id number] PRELIMINARY REPORT UNLESS MANUALLY/ELECTRONICALLY SIGNED Note * Mar Lancaster RN: PERFORM Event Display: Discharge/Transfer Note Hospital Authored Date: [id number] Nursing Discharge Note Entered On: 01/08/2023 14:55 EDT Performed On: 01/08/2023 14:55 EDT by Mar Lancaster RN Nursing Discharge Note 2 Discharge Time : 01/08/2023 14:54 EDT Discharge Level of Care at Discharge : Homehealth/VNA Discharge [facility] [phone] Patient Left Unit Via : Wheelchair Patient Accompanied Off Unit with : Responsible adult DC Instructions Provided & Signed by Pt : Yes Patient Understands D/C Instructions : Yes Patient Instructions Discharge Signed : Yes Did Pt have Specialty Bed or Wound Vac : No Mar Lancaster RN - 01/08/2023 14:55 EDT * Nikky Guajardo NP: MODIFY, SIGN, VERIFY, PERFORM Event Display: Discharge/Transfer Note Hospital Authored Date: [id number] Patient: JASON TEE Age: 72 years Sex: Female : 1950 Associated Diagnoses: None Author: Bennett JADE, Nikky Discharge Summary Admission Date: January 08, 2023 Discharge Date: January 08, 2023 Admitting Diagnosis: Left knee osteoarthritis Discharge Diagnosis: Left knee osteoarthritis Final Diagnosis : Left knee osteoarthritis Procedure: Left total knee arthroplasty Surgeon: Dr. Luciano Sauer Past Medical History: 1. Osteoarthritis of bilateral knees, left being greater than the right. 2. Migraine headaches. 3. Vertigo. 4. Obesity with BMI of 37. 5. ADD. 6. Anxiety. 7. Hiatal hernia. 8. Decreased hearing to the left ear. 9. Hypertension. 10. Hyperlipidemia. 11. Fall at home 3-1/2 weeks ago after which she developed a large bruits to the left knee. There is currently no open areas and bruising is resolving. 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 13. Herpes labialis. 14. Iron deficiency anemia. 15. Raynaud's disease. 16. Tinnitus. PAST SURGICAL HISTORY: 1. Right knee arthroscopy x2. 2. EGD. Orthopedics: The patient is status post left total knee arthroplasty. It is anticipated that they will be discharged home today pending PT, OT clearance. The patient is doing well from a surgical standpoint. Their incision is healing well. Neurovascular status is intact. Calves are supple and nontender. Making good progress with Physical Therapy and Occupational therapy. Supervision with ambulation walking 30 feet , ambulating with a walker WBAT. ROM 0-90. Pain is well controlled on their current regimen, Acetaminophen 650 mg every 6 hours, Celebrex 200mg daily, Tramadol as needed for mild pain, and Oxycodone as needed for moderate to severe pain. Patient is tolerating this well. They will be sent home with a prescription for this medication. Prescription: Tramadol 50 mg tablet. Take 1-2 tablets every 6 hours as needed for pain x 7 days. # 56 tablet. Oxycodone 5 mg tablet. Take 1-2 tablets every 4 hours as needed for pain x 7 days. # 84 tablet. Hospital course: Relatively uneventful medically. The patient denies any nausea or vomiting and has been able to tolerate their diet. Pain is controlled now. Patient is voiding spontaneously. + bowel sounds. Bowels medications given with anticipation of a BM. No other issues. No calf tenderness. Current Medication List: Acetaminophen (acetaminophen 325 mg oral tablet) 650 Milligram By Mouth Every 6 hours May take OTC not to exceed 3000 mg/day Aspirin (Aspirin Tablet) 325 Milligram By Mouth 2 times a day Celecoxib (celecoxib 200 mg oral capsule) 200 Milligram By Mouth Daily Cholecalciferol (Vitamin D3 2000 intl units oral tablet) 1 tab(s) 50 Microgram By Mouth Daily Docusate (Colace Capsule) 100 Milligram 1 capsule By Mouth 2 times a day as needed as needed for constipation erenumab (Aimovig) 70 Milligram Subcutaneous Infusion Every 28 days Ferrous Sulfate (Slow Fe (as elemental iron) 45 mg oral tablet, extended release) 1 tab(s) 45 Milligram By Mouth Daily Gabapentin (gabapentin 300 mg oral capsule) 900 Milligram 3 capsule By Mouth Daily at bedtime HydrOXYzine (hydrOXYzine pamoate 25 mg oral capsule) 1 capsule 25 Milligram By Mouth 4 times a day as needed for anxiety Methylphenidate (methylphenidate 10 mg/8 hr oral tablet, extended release) 1 tab(s) 10 Milligram ByMouth Daily Oxycodone (oxyCODONE 5 mg oral tablet) See Instructions as needed Take 1-2 tablets every 4 hours asneeded for moderate to severe pain. Pain , Moderate Pantoprazole (pantoprazole 40 mg oral delayed release tablet) 40 Milligram By Mouth Daily Pramipexole (pramipexole 0.25 mg oral tablet) 1 tab(s) 0.25 Milligram By Mouth Daily at bedtime as needed Other restless legs Riboflavin (Vitamin B2 100 mg oral tablet) 1 tab(s) 100 Milligram By Mouth Daily rimegepant (Nurtec ODT 75 mg oral tablet, disintegrating) 1 tab(s) 75 Milligram By Mouth Every 24 hours as needed as needed for migraine headache not to exceed 75 mg in 24 hours Topiramate (topiramate 100 mg oral tablet) 1 tab(s) 100 Milligram By Mouth Daily Tramadol (traMADol 50 mg oral tablet) See Instructions as needed Pain , Mild Take 1-2 tablets every6 hours as needed for mild pain. not to exceed 400 mg/day Allergies: Allergies (Active and Proposed Allergies Only) Crestor (Severity: Unknown severity, Onset: Unknown) Reglan (Severity: Unknown severity, Onset: Unknown) Reactions: bruising Current Labs: DVT prophylaxis ASA EC 325 mg p o bid x 30 days Disposition: Anticipates being discharged today to home. Follow up at [facility] in two weeks , patient is aware of this. The patient has a Aquacel dressing in place. They may shower with it and the dressing can be discontinued on POD 7 Discharge Information Admission Date: 01/08/2023 Principal Discharge Diagnosis Discharge Plan Discharge Disposition Discharge: home with VNA. Home Health Face to Face I certify that this patient is under my care and that I or an allowed non- physician practitioner working with me, had a jege-ys-qite encounter with the patient on this date: 01/08/2023. The encounter with the patient was in whole, or in part, for the following medical condition, whichis the primary reason for home health care: Osteoarthritis of right knee. Physical Therapy: Functional mobility training, Home exercise program to strengthen, increase ROM, Falls prevention training. Homebound due to: Inability to leave home without assistance/supervision, Inability to ambulate without assistance. Physician Signature: Cristiane IVAN, Luciano Thurman RN, Laura: PERFORM Event Display: Patient Education/Instruction Authored Date: [id number] Inpatient Adult Discharge Instructions [place] [id number] Name: JASON TEE : 1950 Visit: 01/08/2023 12:03:00 Current Date: 01/08/2023 12:53 Account: [id number] Inpatient Adult Discharge Instructions We would like to thank you for allowing us to assist you with your healthcare needs. The following includes patient education materials and information regarding your injury/illness. Our entire staffstrives to provide an excellent experience for our patients and their families. PLEASE ENSURE YOU FOLLOW-UP PER THE INSTRUCTIONS BELOW! ?? YOUR OPINION IS IMPORTANT TO US! Please complete the survey you may receive by mail or email. Your feedback will be used to make improvements to the healthcare experiences of our patients and their families. Surveys are administered by [email or web address] ?? If further treatment with your primary care physician or another doctor is recommended, it is important for you to keep the appointment. Call your primary care physician or return to the Emergency Department immediately if your condition worsens, fails to improve, or new symptoms develop. If you need to find a doctor, you can call [facility] Link for a referral at [phone] or toll free at [phone] ([phone]) or log in to [email or web address].. ?? [facility], in keeping with [facility] guidance, no longer requires face masks for staff, patientsor visitors in most situations. Similiar to time spent indoors at other locations, there is the chance that you were exposed to repiratory viruses during your time with us (such as flu or COVID-19). If you develop symptoms concerning for a viral respiratory infection, please seek testing (and treatment if indicated) from your medical provider or home test kit. ?? You can view and manage your care through the patient portal or by using a health care jamie of your choosing. [employer] is a website that allows you to securely view your medical information including your hospital discharge summary, office visit summaries, medications and follow-up visits. You can also request appointments, renew medications, and request access to your medical information using a health care jamie of your choosing, or just ask a question. You can enroll at [email or web address] or register during your next office visit. You have been discharged from [facility], Patient Care Unit: [facility]. If you have any questions regarding these instructions after you leave, please call us and we will be happy to assist you. [facility] Your Care Team Attending Physician Luciano Sauer MD Discharging Providers Bennett JADE, Nikky Reason for Admission OA LEFT KNEE AMELIA Your Diagnosis Osteoarthritis of right knee Tests Performed Below is a partial list of the tests performed during your hospitalization. You may have had other tests and procedures not included in this list. Please discuss all test results with your provider. XR Knee 1 or 2 Views Left Primary Care Provider Yelena Fischer Advance Directive Health Care Proxy on File Yes - Health Care Proxy Discharge Vitals Temperature: 97.6 DegF Height: 163 cm Pulse Rate: 59 bpm ?? Respiratory Rate:??15 br/min??Low ?? Systolic Blood Pressure:??151 mm Hg??High ?? Diastolic Blood Pressure:??85 mm Hg??High ?? Oxygen Saturation: 100 % ?? Studies Pending All tests and labs ordered during this hospital stay have been completed unless listed below. Please discuss all pending results with your provider listed above in these instructions. ?? BUN CBC COVID-19 (2019 Novel Coronavirus) PCR Creatinine Electrolytes What to do next Instructions From Your Doctor Discharge Orders You Need to Schedule the Following Appointments Follow Up with??[facility] When:??Within 1 to 2 weeks Follow Up with??[facility] When:??Within 1 to 2 weeks Discharge Medications JASON TEE :1950 Visit Date:01/08/2023 Medications: Please continue your medications until treatment is completed or stopped by your provider. Medications not listed below should be discontinued. Discuss any questions related to medications with your provider. What How Much When Instructions Next Dose Unchanged Acetaminophen (acetaminophen 325 mg oral tablet) 650 Milligram Oral Every 6 hours May take OTC not to exceed 3000 mg/ day ?? Today at 7:15??pm Unchanged Aspirin (Aspirin Tablet) 325 Milligram Oral Twice a day Tomorrow morning Unchanged Celecoxib (celecoxib 200 mg oral capsule) 200 Milligram Oral Daily Tomorrow morning Unchanged Cholecalciferol (Vitamin D3 2000 intl units oral tablet) 1 tab(s) Oral Daily Resume home schedule Unchanged Docusate (Colace Capsule) 100 Milligram Oral Twice a day as needed for as needed for constipation As needed Unchanged erenumab (Aimovig) 70 Milligram Subcutaneous Infusion Every 28 days Unchanged Ferrous Sulfate (Slow Fe (as elemental iron) 45 mg oral tablet, extended release) 1 tab(s) Oral Daily Resume home schedule Unchanged Gabapentin (gabapentin 300 mg oral capsule) 3 capsule Oral Daily at Bedtime Resume home schedule Unchanged HydrOXYzine (hydrOXYzine pamoate 25 mg oral capsule) 1 capsule Oral 4 times a day as needed for for anxiety Resume home schedule Unchanged Methylphenidate (methylphenidate 10 mg/ 8 hr oral tablet, extended release) 1 tab(s) Oral Daily Unchanged Oxycodone (oxyCODONE 5 mg oral tablet) See instructions Take 1-2 tablets every 4 hours as needed for moderate to severe pain., As needed for Pain , Moderate ?? Pickup at [facility] 3 Today at 3:15 pm Unchanged Pantoprazole (pantoprazole 40 mg oral delayed release tablet) 40 Milligram Oral Daily Tomorrow morning Unchanged Pramipexole (pramipexole 0.25 mg oral tablet) 1 tab(s) Oral Daily at Bedtime as needed for Other restless legs ?? Resume home schedule Unchanged Riboflavin (Vitamin B2 100 mg oral tablet) 1 tab(s) Oral Daily Resume home schedule Unchanged rimegepant (Nurtec ODT 75 mg oral tablet, disintegrating) 1 tab(s) Oral Every 24 hours as needed for as needed for migraine headache not to exceed 75 mg in 24 hours ?? Resume home schedule Unchanged Sertraline (sertraline 100 mg oral tablet) Resume home schedule Unchanged Topiramate (topiramate 100 mg oral tablet) 1 tab(s) Oral Daily Resume home schedule Unchanged Tramadol (traMADol 50 mg oral tablet) See instructions Take 1-2 tablets every 6 hours as needed for mild pain. ?? not to exceed 400 mg/ day, As needed for Pain , Mild ?? Pickup at [facility] 3 As needed Pharmacy Information [facility]: [address], [place] [id number] [phone] Test Results Below is a partial list of the most recent Laboratory test results done prior to this discharge. You may have had other tests and procedures not included in this list. Please discuss all test resultswith your provider. Allergies (NKA means No Known Allergies) Crestor Reglan??(bruising) Problems Active Problems??(16) ADD (attention deficit disorder)?? Chronic allergic rhinitis?? Conductive hearing loss?? Esophageal hiatal hernia?? 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 Herpes labialis?? Hypercholesterolemia - ASCVD risk 3.8% as of 08/11/16?? Iron deficiency?? [facility] prescription benzodiazepine use?? Migraine with vertigo?? Obesity?? Raynaud's phenomenon?? Recurrent vertigo - BPPV?? Severe obesity (BMI 35.0-39.9) with comorbidity?? Situational anxiety?? Tinnitus?? Education Materials Below is the list of Educational Leaflet Providered with your Discharge Instructions. Surgery Medical Daystay Surgical Overnight Discharge Instructions?? Total Knee Replacement Discharge Instructions?? Valuables and Belongings I fully understand and agree that [facility] accepts no responsibility for all my personal property including clothing, toilet articles, radios, jewelry, dentures, hearing aids, rings, money, or any other property that is in my possession or is brought to me after admission. I understand certain valuables may be placed in a hospital safe for a short period of time. I understand that the hospital is not liable for loss or damage due to accident, fire, or other natural occurrence while said property is in the safe. I accept full responsibility for any personal property that I keep with me, and will not hold the hospital responsible in case of loss or disappearance. I acknowledge that i have been encouraged to send valuables and belongings home. ?? Review of Valuable and Belonging List: With patient Disposition of Belongings: Other: PACU closet Date for Pt to Sign Valuables/Belongings: 01/08/23 07:00:00 ?? Other Discharge Information ? Pulmonary Rehab Status?? Pulmonary Rehab Discharge Status?? Respiratory Rate:??15 br/min??Low ? Common Emergency Awareness Tips IS IT A STROKE? Act FAST and Check for these signs: FACE Does the face look uneven? ARM Does one arm drift down? SPEECH Does their speech sound strange? TIME Call at any sign of stroke ?? Heart Attack Signs Chest discomfort: Most heart attacks involve discomfort in the center of the chest and lasts more than a few minutes, or goes away and comes back. It can feel like uncomfortable pressure, squeezing, fullness or pain. Discomfort in upper body: Symptoms can include pain or discomfort in one or both arms, back, neck, jaw or stomach. Shortness of breath: With or without discomfort. Other signs: Breaking out in a cold sweat, nausea, or lightheaded. Remember, MINUTES DO MATTER. If you experience any of these heart attack warning signs, call to get immediate medical attention! ?? Smoking can increase your chances of developing chronic health problems and can cause harmful effects to other family members in your house. If you smoke, you are strongly encouraged to quit. Please call [facility] at [phone] or 5-436-440-Webtrekk ([phone]) or log in to [email or web address] for referrals to smoking cessation programs. ?? 988 Suicide & Crisis Lifeline is available 20/11 if you or someone you know needs to find a reason to keep living. By calling 988 you'll be connected to a skilled, trained counselor at a crisis center in your area. INPATIENT DISCHARGE INSTRUCTIONS SIGNATURE PAGE JASON TEE Location:[facility] Registration Date and Time:01/08/2023 12:03 EDT Primary Care Physician: Yelena Fischer, Attending Physician: Luciano Sauer MD, I JASON TEE, have received the above patient education materials/instructions and have verbalized understanding. If ambulance or transport services are being used I further acknowledge being given a choice of service. ?? If you need to contact me, please call me at this number: . Patient/Auto Striper Name: Patient/Auto Striper Signature: Relationship to Patient: Witness Name/Signature: Date: * Laura Thurman RN: PERFORM Event Display: Patient Education Leaflets Authored Date: [id number] Surgery Medical Daystay Surgical Overnight Discharge Instructions ?? 295 Medical Daystay/Surgical Overnight Discharge Instructions ? Since your coordination and judgment may be altered by medication and/or anesthesia, a responsible adult must drive you home from the hospital. ? If you have received medication for pain or sedation while under our care, you should not drive, operate machinery, drink alcohol, or sign any legal documents for 24 hours.?? You should have someone with you at home tonight. ? Remain at home the day of discharge.?? You may be up and about unless otherwise instructed by your physician. ? You may resume your daily prescription medication schedule.?? Any depressant medication should be avoided for 24 hours unless otherwise instructed by your surgeon or anesthesiologist. ? Call your physician for a follow-up appointment.? If you experience unusual or severe pain not relied by your pain medication, excessive bleedingor drainage, persistent nausea and vomiting, excessive swelling or redness, foul odor from incisionsite or fever over 100.6F, you need to call your physician. ? A follow-up phone call by a nurse will be made the day after your procedure.?? If you have stayed with us over night, you will not be receiving a follow-up phone call. ? Nausea and vomiting are a common side effect of prescription pain medication.?? We recommend that pills are not taken on an empty stomach.?? While taking any prescription pain medication you should not drive or drink alcohol. ? * Laura Thurman RN: PERFORM Event Display: Patient Education Leaflets Authored Date: [id number] Total Knee Replacement Discharge Instructions ?? 667 Total Knee Replacement Discharge Instructions ??? Please read and review your Total Knee Replacement Book for detailed information ??? Your appetite may be decreased but try to maintain a good balanced diet ?? Ice and elevation ?Ice is important to help keep swelling down. ?Keep elevated as much as possible. ?Ice the knee 4 times a day for 20 minutes each time. Be sure not to put the ice/ice pack directly on your skin. Use a dish towel or something similar between the ice and your skin. ??? Moving ? Get up and walk frequently. ??? Do 20 ankle pumps every hour. ??? Complete your exercises 4times a day, bending and straightening your knee ??? Begin exercises the evening you go home ??? Moving is especially important. This helps to prevent blood clots. Take short frequent walks. ? Wear your knee brace when walking until your surgeon or physical therapist tells you to stop. ??? You may sleep with or without the brace and sleep anyway you are comfortable. ??? Place a pillow underthe ankle/lower leg when lying down to help with extension of your knee. ??? Do not put a pillow under your knee ??? Continue to move your foot up and down, this exercise helps to prevent blood clotsand to help reduce swelling in your knee ??? No driving until approved by your surgeon ?? Incision ?Your incision is closed with absorbable stitches and surgical glue. ?The dressing iswaterproof. You may shower the next day. ??? You may develop some discoloration around your incision (yellowish or bruising) ??? Your dressing will stay on for 1-2 weeks ?You cannot go in a bath, pool, ocean, pond, foster or jacuzzi for 6 weeks. This is to reduce your risk of infection ? You may have some numbness around the incision. This is normal and will improve with time. Some patients have numbness that does not completely go away. ?? When to call the Surgeon?CALL [phone] ?If you have shortness of breath or chest pain, call 911 or go to the nearest emergency department. ??? If you have drainage and/or redness around your wound. ?If you have a fever greater than 101.5 (38.5 degrees Celsius). ?If you have persistent calf pain or swelling (This couldbe a blood clot). ??? If your pain is worsening. ? If you have any difficulty with urination or burning with urination ? Patient Care team information Care Team Personnel Name: Yelena Fischer Position: [facility] PCO Associate Professional Member Role: PCP Address: Address: [address] [place] [address]- Care Team Related Persons Name: SELMA TEE Address: home [address] [place] [address] Name: ELIDA TEE Address: home [address] [place] [address]
--- OUTSIDE RECORDS SUMMARY | 2024-03-26 09:06 | XMS_ITS | Continuity of Care Document ---
Author Organization [facility] Address [address] [place] [address]- Care Team Providers Care Dining Room Busser Name Role Phone Shazia IVAN, Santana Shultz Primary Care Physician [phone] Encounter [facility] [place] Date(s): 10/21/19 - 11/20/19 [facility] [address] [place] [address]- [facility] Attending Physician: AdmYoel [email or web address] Admitting Physician: AdmtrYa Referring Physician: Admtr, Ya Allergies, Adverse Reactions, [...] Toxoid Vaccine (oldterm) 08/28/00 Given 1Result Comment: [id number] 2[facility] Note: [facility] 3Admin Note: [facility] 4Result [...] Refills, Maintenance, 10/30/19 16:42:00 EDT, ER Tablet, [facility] [...]
--- OUTSIDE RECORDS SUMMARY | 2024-03-26 09:06 | XMS_ITS | Continuity of Care Document ---
Author Organization [facility] Saran Wetzel Aung lt Address [address] [place] [address]- Care Team Providers Care City Editor Name Role Phone Shazia IVAN, Santana Shultz Primary Care Physician [facility]counter [facility] Date(s): 01/04/21 - 02/03/21 [facility] Saran Starkley Adult [address] [place] [address]- Allergies, Adverse Reactions, Alerts Substance Reaction Severity [...] 08/28/00 Given 1Result Comment: PHARMACY 2Result Comment: [id number] 3Admin Note: [facility] 4Admin Note: [facility] 5Result Comment: [12/10/2014[facility] 7Admin Note: [facility] 03-22-13 8Result Comment: [id number] 9Admin Note[facility] 03-22-13. Medications ALPRAZolam 0.5 mg oral tablet 0.5 mg, 1, tablet, By Mouth, 3 times a day, PRN, # 12 tablet, Refills 0, Tot. Refills 0, Maintenance, for anxiety, 11/22/20 10:20:00 EDT, Route to Pharmacy Electronically, [facility] #[id number], 164, cm, 11/22/20 9:52:00 EDT, Height, 96, kg, 04... Start Date: 11/22/20 Status: Ordered Excedrin By [...] 0 Refills, Maintenance, 02/02/21 15:00:00 EDT, Tablet, [facility][id number], Partial fill upon patient request if the prescription is for a schedule II opioid drug., 1... Start Date: 02/02/21 Status: Ordered methylphenidate 10 mg/8 hr oral tablet, extended release 1 tablet = 10 mg, By Mouth, Daily, # 30 tablet, 0 Refills, Maintenance, 01/05/21 12:22:00 EDT, ER Tablet, [facility] #[id number], 164, cm, 11/22/20 9:52:00 EDT, Height, 96, kg, 08/10/20 7:04:00 EDT, Dry Weight Start Date: 01/05/21 Status: Ordered nortriptyline 25 mg oral capsule 50 mg, 2, capsule, By Mouth, Daily at bedtime, 2 tabs at bedtime, # 60 capsule, Refills 5, Tot. Refills 5, Maintenance, 10/07/20 12:20:00 EDT, Route to Pharmacy Electronically, [facility] #[id number], Dose reduced., 167.64, cm, 10/05/20 9:20:00 E... [...] Active Migraine with vertigo(Confirmed) Active Obesity(Confirmed) Active nursing home prescription benzo diazepine use(Confirmed) Active Raynaud's phenomenon(Confirmed) 03/26/09 Active Situational anxiety(Confirmed) 03/01/12 Active Tinnitus(Confirmed) 01/20/08 Active Recurrent vertigo - BPPV(Confirmed) Active Social History Social History Type Response Smoking Status Never smoker entered on: 09/28/17 Sex
--- OUTSIDE RECORDS SUMMARY | 2024-03-26 09:06 | XMS_ITS | Continuity of Care Document ---
Author Organization [facility] Rashard Aung lt Address [address] [place] [address]- Care Team Providers Care Assembler Flexible Leads Name Role Phone Esme HERNÁNDEZ, Yelena Mix Primary Care Physician [place] [facility] [place] Date(s): 09/27/23 - 10/27/23 [facility] Adult [address] [place] [address]- Allergies, Adverse Reactions, Alerts Substance Reaction Severity Status Reglan bruising Active Crestor Active Immunizations Given and Recorded Vaccine Date Status Refusal Reason [id number] bivalent booster vax 03/25/22 Recorded SARS-CoV-2 (COVID-19) [...] 08/28/00 Given 1Result Comment: PHARMACY 2Result Comment: [id number] 3Admin Note: [facility] 4Admin Note: [facility] 5Result Comment: [12/10/2014[facility] 03-22-13 8Result Comment: [id number] 9Admin Note[facility] 03-22-13. Medications [...] Daily, # 30 tablet, 0 Refills, Maintenance, 10/10/23 13:32:00 EDT, ER Tablet, [facility], 163, cm, 01/08/23 11:46:00 EDT, Height, 94.1, kg, 01/08/23 7:00:00 EDT, Dry Weight Start Date: 10/10/23 Status: Ordered Nurtec ODT 75 mg oral [...] with vertigo Confirmed Active Obesity Confirmed Active custodial prescription benzodiazepine use Confirmed Active Raynaud's phenomenon [...] Associate Professional Member Role: PCP Address: Address: [address] [place] [address] Care Team Related Persons Name: SELMA TEE Address: home [address] [facility] [place] [address] Name: ELIDA TEE Address: home [address] [facility] [place] [address]
--- OUTSIDE RECORDS SUMMARY | 2024-03-26 09:06 | XMS_ITS | Continuity of Care Document ---
Author Organization [facility] Rashard Aung lt Address [address] [place] [address]- Care Team Providers Care Plate Preparer Name Role Phone Yelena Fischer Primary Care Physician [phone] Encounter [facility] [place] Date(s): 04/04/22 - 05/04/22 [facility] Adult [address] [place] [address]- Allergies, Adverse Reactions, Alerts Substance Reaction Severity [...] 08/28/00 Given 1Result Comment: PHARMACY 2Result Comment: [id number] 3Admin Note: [facility] 4Admin Note: [facility] 5Result [...] 04/26/21 16:49:00 EST, Route to Pharmacy Electronically, [facility] #[id number], 164, cm, 03/18/21 11:18:00 EST, Height, 96, [...] 0 Refills, Maintenance, 02/02/21 15:00:00 EDT, Tablet, [facility] #[id number], Partial fill upon patient request if the prescription is for a schedule II opioid drug., 1... Start Date: 02/02/21 Status: Ordered methylphenidate 10 mg/8 hr oral tablet, extended release 1 tablet = 10 mg, By Mouth, Daily, # 30 tablet, 0 Refills, Maintenance, 03/06/22 8:39:00 EST, ER Tablet, [facility], Primary pharmacy only had 9 tabs available, this is a new scriptto complete the one month supply, 164brayan, 12/12/21 14:... Start Date: 03/06/22 Status: Ordered methylphenidate 10 mg/8 hr oral tablet, extended release 1 tablet = 10 mg, By Mouth, Daily, # 30 tablet, 0 Refills, Maintenance, 04/07/22 17:37:00 EST, ER Tablet, [facility], Partial fill upon patient request if the prescription is for a schedule II opioid drug., 164 brayan, 12/12/21 14:34:00 EDT... Start Date: 04/07/22 Status: [...] class II Confirmed Active Obesity Confirmed Active [facility] prescription benzodiazepine use Confirmed Active Raynaud's phenomenon Confirmed 03/26/09 Active Situational anxiety Confirmed 03/01/12 Active Tinnitus Confirmed 01/20/08 Active Recurrent vertigo - BPPV Confirmed Active Social History Social History Type Response Smoking Status Never smoker entered on: 09/28/17 Sex Patient Care team information Care Team Personnel Name: Yelena Fischer Position: [facility] PCO Associate Professional Member Role: PCP Address: Address: [address] [place] [address]- Care Team Related Persons Name: SELMA TEE Address: home [address] [place] [address] Name: ELIDA TEE Address: home [address] [place] [address]
--- OUTSIDE RECORDS SUMMARY | 2024-03-26 09:06 | XMS_ITS | Continuity of Care Document ---
Author Organization [facility] Saran Wetzel Aung lt Address [address] [place] [address]- Care Team Providers Care Supervisor/Port Director Name Role Phone Shazia IVAN, Santana Shultz Primary Care Physician [phone] [facility] Date[facility]s): 06/10/19 - 06/20/19 [facility] Adult [address] [place] [address]- [facility] Attending Physician: Admtr, Ar8 Allergies, [...] Toxoid Vaccine (oldterm) 08/28/00 Given 1Result Comment: [id number] 2Admin Note: [facility] 3Admin Note: [facility] 4Result [...] 02/12/19 14:46:41 EDT, Route to Pharmacy Electronically, [id number], [facility] Start Date: 02/12/19 Status: [...] 06/03/19 9:09:00 EST, Route to Pharmacy Electronically, [facility], 162.5, cm,03/06/19 10:53:00 EST, [...]
--- OUTSIDE RECORDS SUMMARY | 2024-03-26 09:06 | XMS_ITS | Continuity of Care Document ---
Author Organization [facility] Saran Wetzel Aung lt Address [address] [place] [address]- Care Team Providers Care Emergency Room Clinician Name Role Phone Shazia IVAN, Santana Shultz Primary Care Physician [facility]counter [facility] Date(s): 07/26/20 - 08/25/20 [facility] Saran Wetzel Adult [address] [place] [address]- Allergies, Adverse Reactions, Alerts Substance Reaction Severity [...] influenza virus vaccine, inactivated 7 03/24/13 Gi ircci pneumococcal 13-valent vaccine 8 10/09/18 Given Zostavax (oldterm) 9 03/24/13 Given FluLaval (oldterm) 03/01/12 Given Tet/diphth/pertussis, acel (oldterm) 05/12/11 Give n Tetanus Toxoid Vaccine (oldterm) 08/28/00 Given 1Result Comment: PHARMACY 2Result Comment: [id number] 3Admin Note: [facility] 4Admin Note: [facility] 5Result [...] 05/24/20 9:44:00 EST, Route to Pharmacy Electronically, [facility], 167.64, cm, 05/24/20 9:15:00 EST, Height, 91.1, kg, 01/12... Start Date: 05/24/20 Status: Ordered Excedrin By Mouth, 0 Refills, Maintenance, 08/04/20 11:06:00 EDT, Partial fill upon patient request if the prescription is for a schedule II opioid drug. Start Date: 08/04/20 Status: Ordered methylphenidate 10 mg/8 hr oral tablet, extended release 1 tablet = 10 mg, By Mouth, Daily, # 30 tablet, 0 Refills, Maintenance, 07/26/20 17:01:00 EDT, ER Tablet, [facility], 167.64, cm, 06/30/20 15:11:00 EST, Height, 91.1, kg, 01/13/20 7:22:00 EDT, Dry Weight Start Date: 07/26/20 Status: Ordered nortriptyline 25 mg oral capsule 75 mg, 3, capsule, By Mouth, Daily at bedtime, # 90 capsule, Refills 5, Tot. Refills 5, Maintenance, 02/13/20 15:49:00 EDT, Route to Pharmacy Electronically, [facility], 167.64, cm, 02/13/20 15:14:00 EDT, Height, 91.1, kg, 01/13/20 7:22:00... Start Date: 02/13/20 Stop Date: 08/11/20 Status: Ordered omeprazole 20 mg oral enteric coated capsule 1 capsule = 20 mg, By Mouth, Daily, # 14 capsule, 0 Refills, Maintenance, 08/18/20 9:40:00 EDT, EC Capsule, [facility], Partial fill upon patient [...]
--- OUTSIDE RECORDS SUMMARY | 2024-03-26 09:06 | XMS_ITS | Continuity of Care Document ---
Author Organization [facility] Address [address] [place] [address] Dr anibal, [address] [place] [address]- Care Team Providers Care Ceo And Founder Name Role Phone Santana Mccray MD Primary Care Physician [facility] Date(s): 06/11/19 - 06/18/19 [facility] [address] [place] [address] Drive, [address] [place] [address]- [facility] Attending Physician: Nancy Gamez MD Referring Physician: Santana Mccray MD Allergies, [...] Toxoid Vaccine (oldterm) 08/28/00 Given 1Result Comment: [id number] 2Admin Note: [facility] 3Admin Note: [facility] 4Result [...] 02/12/19 14:46:41 EDT, Route to Pharmacy Electronically, [id number], [facility] Start Date: 02/12/19 Status: [...] 06/03/19 9:09:00 EST, Route to Pharmacy Electronically, [facility], 162.5, cm,03/06/19 10:53:00 EST, [...] Tongue ulceration(Confirmed) 01/20/08 Active Recurrent vertigo(Confirmed) Active Vital Signs Most recent to oldest [Reference Range]: 1 Height 162.5 cm (06/11/19 1:52 PM) Weight 91.5 kg (06/11/19 1:52 PM) Body Mass Index [18.5-24.99] 34.65 *>HHI* (06/11/19 1:52 PM) Social History Social History Type Response Smoking Status Never smoker entered on: 09/28/17 Sex
--- OUTSIDE RECORDS SUMMARY | 2024-03-26 09:06 | XMS_ITS | Continuity of Care Document ---
Author Organization [facility] Address [address] [place] [address]- Care Team Providers Care Educational Technology Specialist Name Role Phone Yelena Fischer Primary Care Physician [facility] Date(s): 12/26/22 - 01/25/[address] [address] Attending Physician: Ya Reyez Admitting Physician: Ya Reyez Referring Physician: Ya Reyez Referring Physician: Skylar Perez Allergies, Adverse Reactions, Alerts Substance Reaction Severity Status Reglan bruising Active Crestor Active Immunizations Given and Recorded Vaccine Date Status Refusal Reason [id number] bivalent booster vax 03/25/22 Recorded SARS-CoV-2 (COVID-19) [...] 08/28/00 Given 1Result Comment: PHARMACY 2Result Comment: [id number] 3Admin Note: [facility] 4Admin Note: [facility] 5Result Comment: [12/10/2014] [facility] 7Admin Note: [facility] 03-22-13 8Result Comment: [id number] 9Admin Note[facility] 03-22-13. 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
--- OUTSIDE RECORDS SUMMARY | 2024-03-26 09:06 | XMS_ITS | Continuity of Care Document ---
Author Organization [facility] Aung lt Address [address] [place] [address]- Care Team Providers Care Cement Sack Breaker Name Role Phone Esme HERNÁNDEZ, Yelena Mix Primary Care Physician Encounter [facility] [place] Date(s): 10/08/23 - 11/21/23 [facility] Adult [address] [place] [address]- Attending Physician: Juancarlos Gibbs MD Allergies, Adverse Reactions, Alerts Substance Reaction Severity Status Reglan bruising Active Crestor Active Immunizations Given and Recorded Vaccine Date Status Refusal Reason [id number] bivalent booster vax 03/25/22 Recorded SARS-CoV-2 (COVID-19) [...] 08/28/00 Given 1Result Comment: PHARMACY 2Result Comment: [id number] 3Admin Note: [facility] 4Admin Note: [facility] 5Result Comment: [12/10/2014] [facility] 6[facility] 7Admin Note: [facility] 03-22-13 8Result Comment: [id number] 9Admin Note[facility] 03-22-13. Medications [...] Daily, # 30 tablet, 0 Refills, Maintenance, 11/06/23 11:14:00 EDT, ER Tablet, [facility], 163, cm, 01/08/23 11:46:00 EDT, Height, 94.1, kg, 01/08/23 7:00:00 EDT, Dry Weight Start Date: 11/06/23 Status: Ordered Nurtec ODT 75 mg oral [...] with vertigo Confirmed Active Obesity Confirmed Active shelter prescription benzodiazepine use Confirmed Active Raynaud's phenomenon [...] Associate Professional Member Role: PCP Address: Address: [address] [place] [id number] Care Team Related Persons Name: SELMA TEE Address: home [address] [facility] [place] [address] Name: ELIDA TEE Address: home [address] [facility] [place] [address]
--- OUTSIDE RECORDS SUMMARY | 2024-03-26 09:06 | XMS_ITS | Continuity of Care Document ---
Author Organization [facility] Saran Wetzel Aung lt Address [address] [place] [address]- Care Team Providers Care Thermostatic Controls Supervisor Name Role Phone Esme HERNÁNDEZ, Yelena Mix Primary Care Physician Encounter [facility] [place] Date(s): 01/28/24 - 02/27/24 [facility] Saran Starkley Adult [address] [place] [address]- Allergies, Adverse Reactions, Alerts Substance Reaction Severity [...] influenza virus vaccine, inactivated 4 12/07/14 Gi ricic influenza virus vaccine, inactivated 5 01/03/14 Gi ricci influenza virus vaccine, inactivated 6 03/24/13 Gi ricci [id number] bivalent booster vax 03/25/22 Recorded SARS-CoV-2 (COVID-19) [...] Toxoid Vaccine (oldterm) 08/28/00 Given 1Result Comment: [id number] 2Admin Note: [facility] 3Admin Note: [facility] 4Result Comment: [12/10/2014] [facility] 5Admin Note[facility] 6Admin Note: [facility] 03-22-13 7Result Comment: PHARMACY 8Result Comment: [id number] 9Admin Note: [facility] 03-22-13. Medications [...] class I Confirmed Active Obesity Confirmed Active salvage determiner prescription benzodiazepine use Confirmed Active Raynaud's phenomenon Confirmed 03/26/09 Active Situational anxiety Confirmed 03/01/12 Active Tinnitus Confirmed 01/20/08 Active Recurrent vertigo - BPPV Confirmed Active Social History Social History Type Response Smoking Status Never smoker entered on: 09/28/17 Sex Patient Care team information Care Team Personnel Name: Yelena Fischer Position: [facility] PCO Associate Professional Member Role: PCP Address: Address: [address] [place] [address]- Care Team Related Persons Name: SELMA TEE Address: home [address] [place] [address] Name: ELIDA TEE Address: home [address] [place] [address]
--- OUTSIDE RECORDS SUMMARY | 2024-03-26 09:06 | XMS_ITS | Continuity of Care Document ---
Author Organization [facility] Saran Wetzel Aung lt Address [address] [place] [address]- Care Team Providers Care Insulation Power Unit Tender Name Role Phone Shazia IVAN, Santana Shultz Primary Care Physician [phone] Encounter [facility] Date(s): 01/05/21 - 02/04/21 [facility] Saran Starkley Adult [address] [place] [address]- Allergies, Adverse Reactions, Alerts Substance Reaction Severity [...] 08/28/00 Given 1Result Comment: PHARMACY 2Result Comment: [id number] 3Admin Note: [facility] 4Admin Note: [facility] 5Result Comment: [12/10/2014] [facility] 6Admin Note[facility] 7Admin Note: [facility] 03-22-13 8Result Comment: [id number] 9Admin Note: [facility] 03-22-13. Medications ALPRAZolam 0.5 mg oral tablet 0.5 mg, 1, tablet, By Mouth, 3 times a day, PRN, # 12 tablet, Refills 0, Tot. Refills 0, Maintenance, for anxiety, 11/22/20 10:20:00 EDT, Route to Pharmacy Electronically, [facility] #[id number], 164, cm, 11/22/20 9:52:00 EDT, Height, 96, [...] 0 Refills, Maintenance, 02/02/21 15:00:00 EDT, Tablet, [facility] #[id number], Partial fill upon patient request if the prescription is for a schedule II opioid drug., 1... Start Date: 02/02/21 Status: Ordered methylphenidate 10 mg/8 hr oral tablet, extended release 1 tablet = 10 mg, By Mouth, Daily, # 30 tablet, 0 Refills, Maintenance, 01/05/21 12:22:00 EDT, ER Tablet, [facility] #[id number], 164, cm, 11/22/20 9:52:00 EDT, Height, 96, kg, 08/10/20 7:04:00 EDT, Dry Weight Start Date: 01/05/21 Status: Ordered nortriptyline 25 mg oral capsule 50 mg, 2, capsule, By Mouth, Daily at bedtime, 2 tabs at bedtime, # 60 capsule, Refills 5, Tot. Refills 5, Maintenance, 10/07/20 12:20:00 EDT, Route to Pharmacy Electronically, [facility] #[id number], Dose reduced., 167.64, cm, 10/05/20 9:20:00 E... [...] Active Migraine with vertigo(Confirmed) Active Obesity(Confirmed) Active [facility] prescription benzo diazepine use(Confirmed) Active Raynaud's phenomenon(Confirmed) 03/26/09 Active Situational anxiety(Confirmed) 03/01/12 Active Tinnitus(Confirmed) 01/20/08 Active Recurrent vertigo - BPPV(Confirmed) Active Social History Social History Type Response Smoking Status Never smoker entered on: 09/28/17 Sex
--- OUTSIDE RECORDS SUMMARY | 2024-03-26 09:06 | XMS_ITS | Continuity of Care Document ---
Author Organization [facility] Address [address] [facility], [address] Floor, [address] [place] [address]- Care Team Providers Care Consultant Nurse Name Role Phone Santana Mccray MD Primary Care Physician [phone] [place] [facility] [place]s): 10/22/19 - 02/19/20 [facility] [address] [place], [address] Floor, [address] [place] [address]- [facility] Attending Physician: Ernesto Rivas MD Referring Physician: Santana Mccray MD Allergies, [...] Toxoid Vaccine (oldterm) 08/28/00 Given 1Result Comment: [id number] 2Admin Note: [facility] 3Admin Note: [facility] 4Result [...] 08/27/19 16:07:00 EDT, Route to Pharmacy Electronically, [facility], 162.5, cm, 07/07/19 13:50:00 EDT, Height Start Date: 08/27/19 Status: Ordered magnesium oxide 400 mg oral tablet 1 tablet = 400 mg, By Mouth, Daily, for 30 days, Take with meal, # 30 tablet, 5 Refills, Acute 08/11/20 15:52:00 EDT, 02/13/20 15:52:00 EDT, [facility], 167.64, cm, 02/13/20 15:14:00 EDT, Height, 91.1, kg, 01/13/20 7:22:00 EDT, Dry Weight Start Date: 02/13/20 Stop Date: 08/11/20 Status: Ordered methylphenidate 10 mg/8 hr oral tablet, extended release 1 tablet = 10 mg, By Mouth, Daily, # 30 tablet, 0 Refills, Maintenance, 02/05/20 15:38:00 EDT, ER Tablet, [facility], 167.64, cm, 01/13/20 7:22:00 EDT, Height, 91.1, kg, 01/13/20 7:22:00 EDT, Dry Weight Start Date: 02/05/20 Status: Ordered nortriptyline 25 mg oral capsule 75 mg, 3, capsule, By Mouth, Daily at bedtime, # 90 capsule, Refills 5, Tot. Refills 5, Maintenance, 02/13/20 15:49:00 EDT, Route to Pharmacy Electronically, [facility], 167.64, cm, 02/13/20 15:14:00 [...] tablet, 1 Refills, Maintenance, 02/13/20 15:53:00 EDT, [facility], 167.64, cm, 02/13/20 15:14:00 [...]
--- OUTSIDE RECORDS SUMMARY | 2024-03-26 09:06 | XMS_ITS | Continuity of Care Document ---
Author Organization [facility] Rashard Aung lt Address [address] [place] [address]- Care Team Providers Care Oscillograph Technician Name Role Phone Yelena Fischer Primary Care Physician [place] [facility] [place] 04/10/23 - 05/10/23 [facility] Adult [address] [place] [address]- Allergies, Adverse Reactions, Alerts Substance Reaction Severity Status Reglan bruising Active Crestor Active Immunizations Given and Recorded Vaccine Date Status Refusal Reason [id number] bivalent booster vax 03/25/22 Recorded SARS-CoV-2 (COVID-19) [...] 08/28/00 Given 1Result Comment: PHARMACY 2Result Comment: [id number] 3Admin Note: [facility] 4Admin Note: [facility] 5Result Comment: [12/10/2014] [facility] 6Admin Note: [facility] 7Admin Note: [facility] 03-22-13 8Result Comment: [id number] 9Admin Note: [facility] 03-22-13. 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
--- OUTSIDE RECORDS SUMMARY | 2024-03-26 09:06 | XMS_ITS | Continuity of Care Document ---
Author Organization [facility] Address [address] [place] [address]- Care Team Providers Care Engineering Tech Name Role Phone Santana Mccray MD Primary Care Physician En[place] [facility] [place] Date(s): 01/31/21 - 03/02/[address] [address] Attending Physician: Ya Reyez Admitting [...] 08/28/00 Given 1Result Comment: PHARMACY 2Result Comment: [id number] 3Admin Note: [facility] 4Admin Note: [facility] 5Result [...] 02/16/21 17:04:00 EDT, Route to Pharmacy Electronically, [facility] #[id number], 164, cm, 11/22/20 9:52:00 EDT, Height, 96, [...] 0 Refills, Maintenance, 02/02/21 15:00:00 EDT, Tablet, [facility] #[id number], Partial fill upon patient request if the prescription is for a schedule II opioid drug., 1... Start Date: 02/02/21 Status: Ordered methylphenidate 10 mg/8 hr oral tablet, extended release 1 tablet = 10 mg, By Mouth, Daily, # 30 tablet, 0 Refills, Maintenance, 02/08/21 17:21:00 EDT, ER Tablet, [facility] #74050, 164, cm, 11/22/20 9:52:00 EDT, Height, 96, [...] Active Migraine with vertigo(Confirmed) Active Obesity(Confirmed) Active group home prescription benzo diazepine use(Confirmed) Active Raynaud's phenomenon(Confirmed) 03/26/09 Active Situational anxiety(Confirmed) 03/01/12 Active Tinnitus(Confirmed) 01/20/08 Active Recurrent vertigo - BPPV(Confirmed) Active Social History Social History Type Response Smoking Status Never smoker entered on: 09/28/17 Sex
--- OUTSIDE RECORDS SUMMARY | 2024-03-26 09:06 | XMS_ITS | Continuity of Care Document ---
Author Organization [facility] Saran Wetzel Aung lt Address [address] [place] [address]- Care Team Providers Care Garage Manager Name Role Phone Shazia IVAN, Santana Shultz Primary Care Physician [phone] Encounter [facility] Date(s): 12/01/19 - 12/31/19 [facility] Saran Starkley Adult [address] [place] [address]- [facility] Allergies, Adverse Reactions, Alerts Substance Reaction [...] Toxoid Vaccine (oldterm) 08/28/00 Given 1Result Comment: [id number] 2Admin Note: [facility] 3Admin Note: [facility] 4Result Comment: [12/10/2014] [facility] 5Admin Note[facility] 6Admin Note: [facility] 03-22-13 7Result Comment: [id number] 8Admin Note: [facility] 03-22-13. Medications ALPRAZolam 0.5 mg oral tablet 0.5 mg, 1, tablet, By Mouth, 3 times a day, PRN, # 12 tablet, Refills 0, Tot. Refills 0, Maintenance, for anxiety, 08/27/19 16:07:00 EDT, Route to Pharmacy Electronically, [facility], 162.5, cm, 07/07/19 13:50:00 EDT, Height Start Date: 08/27/19 Status: Ordered methylphenidate 10 mg/8 hr oral tablet, extended release 1 tablet = 10 mg, By Mouth, Daily, # 30 tablet, 0 Refills, Maintenance, 12/01/19 17:00:00 EDT, ER Tablet, [facility], 162.5, cm, 11/14/19 11:59:00 EDT, Height Start Date: 12/01/19 Status: Ordered Migranol Herbal Support Migranol Herbal Support, Refills 0, Maintenance, tid, 11/14/19 12:03:00 EDT, Supply Start Date: 11/14/19 Status: Ordered nortriptyline 25 mg oral capsule 50 mg, 2, capsule, By Mouth, Daily at bedtime, # 60 capsule, Refills 5, Tot. Refills 5, Maintenance, 12/25/19 7:35:00 EDT, Route to Pharmacy Electronically, [facility], Increasing dose, 162.5, cm, 12/03/19 14:19:00 EDT, Height Start Date: 12/25/19 Stop Date: 06/22/20 Status: Ordered Vitamin B12 0 Refills, Maintenance, 09/23/19 9:44:00 EDT Start Date: 09/23/19 Status: Ordered Zofran 4 mg oral tablet 1 tablet = 4 mg, By Mouth, 2 times a day, PRN Nausea & Vomiting, # 20 tablet, 1 Refills, Maintenance, 12/03/19 14:38:00 EDT, [facility], 162.5, cm, 12/03/19 14:19:00 EDT, [...]
--- OUTSIDE RECORDS SUMMARY | 2024-03-26 09:06 | XMS_ITS | Continuity of Care Document ---
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 Start Date: 11/22/20 Status: Ordered Excedrin By [...] Daily, # 30 tablet, 0 Refills, Maintenance, 11/03/20 17:35:00 EDT, ER Tablet, [facility] #[id number], 167.64, cm, 10/05/20 9:20:00 EDT, Height, 96, kg, 08/10/20 7:04:00 EDT, Dry Weight Start Date: 11/03/20 Status: Ordered nortriptyline 25 mg oral capsule 50 mg, 2, capsule, By Mouth, Daily at bedtime, 2 tabs at bedtime, # 60 capsule, Refills 5, Tot. Refills 5, Maintenance, 10/07/20 12:20:00 EDT, [id number], Dose reduced., 167.64, cm, 10/05/20 9:20:00 E... [...] Effective Dates Health Status Clinical Service Informant ADD (attention deficit disorder) Discharge Diagnosis 11/22/20 Situational anxiety Discharge Diagnosis 11/22/20 prison prescription benzodiazepine use Discharge Diagnosis 11/22/20 Migraine Discharge Diagnosis 11/22/20 Non-Specified Hypertension Discharge Diagnosis 11/22/20 Recurrent vertigo - BPPV Discharge Diagnosis 11/22/20 General medical exam Discharge Diagnosis 11/22/20 Conductive hearing loss Discharge Diagnosis 11/22/20 Iron deficiency Discharge Diagnosis 11/22/20 Vital Signs Most recent to oldest [Reference Range]: 1 Height 164.0 cm (11/22/20 9:52 AM) Weight 92.5 kg (11/22/20 9:52 AM) Oxygen Saturation [94-100 %] 98 % (11/22/20 9:52 AM) Pulse Rate [55-90 bpm] 78 bpm (11/22/20 9:52 AM) Body Mass Index [18.5-24.99] 34.39 *>HHI* (11/22/20 9:52 AM) Blood Pressure [90-138/55-84 mm Hg] 114/ 74mm Hg (11/22/20 9:52 AM) Temperature [96.8-100.4 DegF] 98.3 DegF (11/22/20 9:52 AM) Mode of Delivery (Oxygen) Room air (11/22/20 9:52 AM) Blood pressure sites Arm, left (11/22/20 9:52 AM) Temperature Route Oral (11/22/20 9:52 AM) Weight Obtained Via Standing scale (11/22/20 9:52 AM) Social History Social History Type Response Smoking Status Never smoker entered on: 09/28/17 Sex
--- OUTSIDE RECORDS SUMMARY | 2024-03-26 09:06 | XMS_ITS | Continuity of Care Document ---
Author Organization [facility] Address Unknown Care Team Providers Care Blocker And Cutter Contact Lens Name Role Phone Yelena Fischer Primary Care Physician Encounter [facility] Date(s): 05/24/21 - 06/23/21 [facility] Attending Physician: Ya Reyez Admitting Physician: Ya Reyez Referring Physician: Admtr, ArBryce Allergies, Adverse Reactions, Alerts Substance Reaction Severity [...] 08/28/00 Given 1Result Comment: PHARMACY 2Result Comment: [id number] 3Admin Note: [facility] 4Admin Note: [facility] 5Result Comment: [12/10/2014] [facility] 6Admin [facility] 7Admin Note: [facility] 03-22-13 8Result Comment: [id number] 9Admin Note: [facility] 03-22-13. Medications ALPRAZolam 0.5 mg oral tablet 0.5 mg, 1, tablet, By Mouth, 3 times a day, PRN, # 12 tablet, Refills 0, Tot. Refills 0, Maintenance, for anxiety, 04/26/21 16:49:00 EST, Route to Pharmacy Electronically, [facility] #[id number], 164, cm, 03/18/21 11:18:00 EST, Height, 96, [...] 0 Refills, Maintenance, 02/02/21 15:00:00 EDT, Tablet, [facility] #[id number], Partial fill upon patient request if the prescription is for a schedule II opioid drug., 1... Start Date: 02/02/21 Status: Ordered methylphenidate 10 mg/8 hr oral tablet, extended release 1 tablet = 10 mg, By Mouth, Daily, # 30 tablet, 0 Refills, Maintenance, 05/27/21 14:21:00 EST, ER Tablet, [facility] #[id number], 164, cm, 03/18/21 11:18:00 EST, Height, 96, [...]
--- OUTSIDE RECORDS SUMMARY | 2024-03-26 09:06 | XMS_ITS | Continuity of Care Document ---
Author Organization [facility] Aung lt Address [address] [place] [address]- Care Team Providers Care Metal Sander And Finisher Name Role Phone Yelena Fischer Primary Care Physician [place] [facility] [place] 09/11/22 [facility] Adult [address] [place] [address]- Attending Physician: Yelena Fischer Allergies, Adverse Reactions, Alerts Substance Reaction Severity Status Reglan bruising Active Immunizations Given and Recorded Vaccine Date Status Refusal Reason [id number] bivalent booster vax 03/25/22 Recorded SARS-CoV-2 (COVID-19) [...] 08/28/00 Given 1Result Comment: PHARMACY 2Result Comment: [id number] 3Admin Note: [facility] 4Admin Note: [facility] 5Result [...] 04/26/21 16:49:00 EST, Route to Pharmacy Electronically, [email or web address][id number], 164, cm, 03/18/21 11:18:00 EST, Height, 96, [...] 0 Refills, Maintenance, 02/02/21 15:00:00 EDT, Tablet, [email or web address] #[id number], Partial fill upon patient request if the prescription is for a schedule II opioid drug., 1... Start Date: 02/02/21 Status: Ordered methylphenidate 10 mg/8 hr oral tablet, extended release 1 tablet = 10 mg, By Mouth, Daily, # 30 tablet, 0 Refills, Maintenance, 09/04/22 13:00:00 EDT, ER Tablet, [facility], 164, cm, 09/04/22 12:45:00 EDT, Height Start Date: 09/04/22 Status: Ordered methylphenidate 10 mg/8 hr oral [...] with vertigo Confirmed Active Obesity Confirmed Active senior care prescription benzodiazepine use Confirmed Active Raynaud's phenomenon Confirmed 03/26/09 Active Severe obesity (BMI 35.0-39.9) with comorbidity Confirmed Active Situational anxiety Confirmed 03/01/12 Active Tinnitus Confirmed 01/20/08 Active Recurrent vertigo - BPPV Confirmed Active Vital Signs Most recent to oldest [Reference Range]: 1 Height 164.0 cm (09/04/22 12:45 PM) Weight 100.9 kg (09/04/22 12:45 PM) Oxygen Saturation [94-100 %] 100 % (09/04/22 12:45 PM) Pulse Rate [55-90 bpm] 51 bpm *L* (09/04/22 12:45 PM) Body Mass Index [18.5-24.99 kg/m2] 37.51 kg/m2 *>HHI* (09/04/22 12:45 PM) Blood Pressure [90-138/55-84 mm Hg] 125/ 59mm Hg (09/04/22 12:45 PM) Respiratory Rate [16-30 br/min] 16 br/mi n (09/04/22 12:45 PM) Temperature [96.8-100.4 DegF] 98.0 DegF (09/04/22 12:45 PM) Mode of Delivery (Oxygen) Room air (09/04/22 12:45 PM) Blood pressure sites Arm, left (09/04/22 12:45 PM) Temperature Route Oral (09/04/22 12:45 PM) Weight Obtained Via Standing scale (09/04/22 12:45 PM) Social History Social History Type Response Smoking Status Never smoker entered on: 09/28/17 Sex Patient Care team information Care Team Personnel Name: Yelena Fischer Position: S PCO Associate Professional Member Role: PCP Address: Address: [address] [place] [address]- Care Team Related Persons Name: SELMA TEE Address: home [address] [place] [address] Name: ELIDA TEE Address: home [address] [place] [address]
--- OUTSIDE RECORDS SUMMARY | 2024-03-26 09:06 | XMS_ITS | Continuity of Care Document ---
Author Organization [facility] Saran Wetzel Aung lt Address [address] [place] [address]- Care Team Providers Care Construction Cost Estimator Name Role Phone Shazia IVAN, Santana Shultz Primary Care Physician [facility] Date(s): 11/14/19 - 12/14/19 [facility] Saran Starkley Adult [address] [place] [address]- [facility] Attending Physician: Admtr, Ar8 Allergies, Adverse Reactions, [...] Toxoid Vaccine (oldterm) 08/28/00 Given 1Result Comment: [id number] 2Admin Note: [facility] 3Admin Note: [facility] 4Result [...] 08/27/19 16:07:00 EDT, Route to Pharmacy Electronically, [facility], 162.5, cm, 07/07/19 13:50:00 EDT, Height Start Date: 08/27/19 Status: Ordered methylphenidate 10 mg/8 hr oral tablet, extended release 1 tablet = 10 mg, By Mouth, Daily, # 30 tablet, 0 Refills, Maintenance, 12/01/19 17:00:00 EDT, ER Tablet, [facility], 162.5, cm, 11/14/19 11:59:00 EDT, Height Start Date: 12/01/19 Status: Ordered Migranol Herbal Support Migranol Herbal Support, Refills 0, Maintenance, tid, 11/14/19 12:03:00 EDT, Supply Start Date: 11/14/19 Status: Ordered nortriptyline 10 mg oral capsule 30 mg, 3, capsule, By Mouth, Daily at bedtime, # 90 capsule, Refills 5, Tot. Refills 5, Maintenance, 11/27/19 11:04:00 EDT, Route to Pharmacy Electronically, [facility], Increasing dose., 162.5, cm, 11/14/19 11:59:00 EDT, Height Start Date: 11/27/19 Stop Date: 05/25/20 Status: Ordered Vitamin B12 0 Refills, Maintenance, 09/23/19 9:44:00 EDT Start Date: 09/23/19 Status: Ordered Zofran 4 mg oral tablet 1 tablet = 4 mg, By Mouth, 2 times a day, PRN Nausea & Vomiting, # 20 tablet, 1 Refills, Maintenance, 12/03/19 14:38:00 EDT, [facility], 162.5, cm, 12/03/19 14:19:00 EDT, [...]
--- OUTSIDE RECORDS SUMMARY | 2024-03-26 09:06 | XMS_ITS | Continuity of Care Document ---
Author Organization [facility] Address [address] [facility], [address] Floor, [address] [place] [address]- Care Team Providers Care Esthetician Spa Name Role Phone Shazia IVAN, Santana Shultz Primary Care Physician Encounter [facility] Date(s): 08/16/20 - 09/15/20 [facility] [address], [address], [address] [place] [address] Allergies, Adverse Reactions, Alerts Substance Reaction Severity [...] 08/28/00 Given 1Result Comment: PHARMACY 2Result Comment: [id number] 3Admin Note: [facility] 4Admin Note: [facility] 5Result [...] 09/09/20 16:37:00 EDT, Route to Pharmacy Electronically, [facility], 167.64, cm, 06/30/20 15:11:00 [...] Refills, Maintenance, 09/02/20 17:05:00 EDT, ER Tablet, [facility], 167.64, cm, 06/30/20 15:11:00 EST, Height, 96, kg, 08/10/20 7:04:00 EDT, Dry Weight Start Date: 09/02/20 Status: Ordered nortriptyline 25 mg oral capsule 75 mg, 3, capsule, By Mouth, Daily at bedtime, # 90 capsule, Refills 5, Tot. Refills 5, Maintenance, 02/13/20 15:49:00 EDT, Route to Pharmacy Electronically, [facility], 167.64, cm, 02/13/20 15:14:00 EDT, Height, 91.1, kg, 01/13/20 7:22:00... Start Date: 02/13/20 Stop Date: 08/11/20 Status: Ordered omeprazole 20 mg oral enteric coated capsule 1 capsule = 20 mg, By Mouth, Daily, # 14 capsule, 0 Refills, Maintenance, 08/18/20 9:40:00 EDT, EC Capsule, [facility], Partial fill upon patient [...]
--- OUTSIDE RECORDS SUMMARY | 2024-03-26 09:06 | XMS_ITS | Continuity of Care Document ---
Author Organization [facility] Address [address] [facility], 3r d Floor, [address] [place] [address]- Care Team Providers Care Backend Tester Name Role Phone Shazia IVAN, Santana Shultz Primary Care Physician [facility] Date(s): 10/20/19 - 01/02/20 [facility] [address] [place], 3rd Floor, [address] [place] [address]- [facility] Attending Physician: Not on Staff, Attending MD Allergies, Adverse Reactions, Alerts Substance Reaction [...] Toxoid Vaccine (oldterm) 08/28/00 Given 1Result Comment: [id number] 2Admin Note: [facility] 3Admin Note: [facility] 4Result [...] 16:07:00 EDT, Route to Pharmacy Electronically, [facility], 162.5, cm, 07/07/19 13:50:00 EDT, Height Start Date: 08/27/19 Status: Ordered methylphenidate 10 mg/8 hr oral tablet, extended release 1 tablet = 10 mg, By Mouth, Daily, # 30 tablet, 0 Refills, Maintenance, 12/01/19 17:00:00 EDT, ER Tablet, [facility], 162.5, cm, 11/14/19 11:59:00 EDT, Height Start Date: 12/01/19 Status: Ordered Migranol Herbal Support Migranol Herbal Support, Refills 0, Maintenance, tid, 11/14/19 12:03:00 EDT, Supply Start Date: 11/14/19 Status: Ordered nortriptyline 25 mg oral capsule 50 mg, 2, capsule, By Mouth, Daily at bedtime, # 60 capsule, Refills 5, Tot. Refills 5, Maintenance, 12/25/19 7:35:00 EDT, Route to Pharmacy Electronically, [facility], Increasing dose, 162.5, cm, 12/03/19 14:19:00 EDT, Height Start Date: 12/25/19 Stop Date: 06/22/20 Status: Ordered Vitamin B12 0 Refills, Maintenance, 09/23/19 9:44:00 EDT Start Date: 09/23/19 Status: Ordered Zofran 4 mg oral tablet 1 tablet = 4 mg, By Mouth, 2 times a day, PRN Nausea & Vomiting, # 20 tablet, 1 Refills, Maintenance, 12/03/19 14:38:00 EDT, [facility], 162.5, cm, 12/03/19 14:19:00 [...]
--- OUTSIDE RECORDS SUMMARY | 2024-03-26 09:07 | XMS_ITS | Continuity of Care Document ---
Author Organization [facility] Address [address] [place] [address]- Care Team Providers Care Mine Deputy Name Role Phone Shazia IVAN, Santana Shultz Primary Care Physician Encounter [facility] Date(s): 03/09/21 - 03/16/21 [facility] Adult [address] [place] [address]- Encounter Diagnosis Diarrhea(Discharge Diagnosis) - 03/09/21 Attending Physician: Fransico Dutta MD Allergies, Adverse Reactions, Alerts Substance Reaction [...] 08/28/00 Given 1Result Comment: PHARMACY 2Result Comment: [id number] 3Admin Note: [facility] 4Admin Note: [facility] 5Result Comment: [12/10/2014] [facility] 6[facility] 7Admin Note: [facility] 03-22-13 8Result Comment: [id number] 9Admin Note: [facility] 03-22-13. Medications ALPRAZolam 0.5 mg oral tablet 0.5 mg, 1, tablet, By Mouth, 3 times a day, PRN, # 12 tablet, Refills 0, Tot. Refills 0, Maintenance, for anxiety, 02/16/21 17:04:00 EDT, Route to Pharmacy Electronically, [facility] #[id number], 164, cm, 11/22/20 9:52:00 EDT, Height, 96, [...] 0 Refills, Maintenance, 02/02/21 15:00:00 EDT, Tablet, [facility] #[id number], Partial fill upon patient request if the prescription is for a schedule II opioid drug., 1... Start Date: 02/02/21 Status: Ordered methylphenidate 10 mg/8 hr oral tablet, extended release 1 tablet = 10 mg, By Mouth, Daily, # 30 tablet, 0 Refills, Maintenance, 03/14/21 17:16:00 EST, ER Tablet, [facility] #[id number], 164, cm, 03/09/21 9:19:00 EST, Height, 96, [...] Diagnosis Diagnosis Type Effective Dates Health Status Clini peter Service Informant Diarrhea Discharge Diagnosis 03/09/21 Vital Signs Most recent to oldest [Reference Range]: 1 Height 164.0 cm (03/09/21 9:19 AM) Weight 90.9 kg (03/09/21 9:19 AM) Body Mass Index [18.5-24.99] 33.8 *>HHI* (03/09/21 9:19 AM) Social History Social History Type Response Smoking Status Never smoker entered on: 09/28/17 Sex
--- OUTSIDE RECORDS SUMMARY | 2024-03-26 09:07 | XMS_ITS | Continuity of Care Document ---
Author Organization [facility] Address [address] [facility], 3r d Floor, [address] [place] [address]- Care Team Providers Care Cad Technician Name Role Phone Shazia IVAN, Santana Shultz Primary Care Physician [phone] Encounter [facility] Date(s): 11/25/19 - 12/25/19 [facility] [address] [place], 3rd Floor, [address] [place] [address]- [facility] Allergies, Adverse Reactions, Alerts Substance Reaction Severity [...] Toxoid Vaccine (oldterm) 08/28/00 Given 1Result Comment: [id number] 2Admin Note: [facility] 3Admin Note: [facility] 4Result [...] 08/27/19 16:07:00 EDT, Route to Pharmacy Electronically, [facility], 162.5, cm, 07/07/19 13:50:00 EDT, Height Start Date: 08/27/19 Status: Ordered Medrol Dosepak 4 mg oral tablet 1 pack/packet, By Mouth, Daily, for 6 days, as directed on package labeling, # 21 tablet, 0 Refills, Acute 12/31/19 7:33:00 EDT, 12/25/19 7:33:00 EDT, Tablet, [facility], 162.5, cm, 12/03/19 14:19:00 EDT, Height Start Date: 12/25/19 Stop Date: 12/31/19 Status: Ordered methylphenidate 10 mg/8 hr oral tablet, extended release 1 tablet = 10 mg, By Mouth, Daily, # 30 tablet, 0 Refills, Maintenance, 12/01/19 17:00:00 EDT, ER Tablet, [facility], 162.5, cm, 11/14/19 11:59:00 EDT, Height Start Date: 12/01/19 Status: Ordered Migranol Herbal Support Migranol Herbal Support, Refills 0, Maintenance, tid, 11/14/19 12:03:00 EDT, Supply Start Date: 11/14/19 Status: Ordered nortriptyline 25 mg oral capsule 50 mg, 2, capsule, By Mouth, Daily at bedtime, # 60 capsule, Refills 5, Tot. Refills 5, Maintenance, 12/25/19 7:35:00 EDT, Route to Pharmacy Electronically, [facility], Increasing dose, 162.5, cm, 12/03/19 14:19:00 EDT, Height Start Date: 12/25/19 Stop Date: 06/22/20 Status: Ordered Vitamin B12 0 Refills, Maintenance, 09/23/19 9:44:00 EDT Start Date: 09/23/19 Status: Ordered Zofran 4 mg oral tablet 1 tablet = 4 mg, By Mouth, 2 times a day, PRN Nausea & Vomiting, # 20 tablet, 1 Refills, Maintenance, 12/03/19 14:38:00 EDT, [facility], 162.5, cm, 12/03/19 14:19:00 EDT, [...]
--- OUTSIDE RECORDS SUMMARY | 2024-03-26 09:07 | XMS_ITS | Continuity of Care Document ---
Author Organization [facility] A[facility] lt Address [address] [place] [address]- Care Team Providers Care Paint Supervisor Name Role Phone Yelena Fischer Primary Care Physician [place] [facility] Date(s): 02/19/24 - 03/20/24 [facility] Adult [address] [place] [address]- Encounter Type: Triage Allergies, Adverse Reactions, Alerts Substance Criticality Severity Reaction Reaction Severity Status Reglan bruising Active Crestor [...] virus vaccine, inactivated 6 03/24/13 Gi ricci [id number] bivalent booster vax 03/25/22 Recorded SARS-CoV-2 (COVID-19) [...] Toxoid Vaccine (oldterm) 08/28/00 Given 1Result Comment: [id number] 2Admin Note: [facility] 3Admin Note: [facility] 4Result Comment: [12/10/2014] [facility] 6Admin Note: [facility] 03-22-13 7Result Comment: PHARMACY 8Result Comment: [id number] 9Admin Note: [facility] 03-22-13. Medications Aimovig = 70 mg, Subcutaneous Infusion, Every 28 days, 0 Refills, Maintenance, 12/26/22 11:08:00 AM EDT, Partial fill upon patient request if the prescription is for a schedule II opioid drug. Start Date: 12/26/22 Status: Ordered Repeat number: 1 ezetimibe 10 mg oral tablet 1 tablet = 10 mg, By Mouth, Daily, 0 Refills, Maintenance, 11/29/23 9:33:00 AM EDT, Tablet, Partial fill upon patient request if the prescription is for a schedule II opioid drug. Start Date: 11/29/23 Status: Ordered Repeat number: 1 gabapentin 300 mg oral capsule 900 mg, 3, capsule, By Mouth, Daily at bedtime, # 90 capsule, Refills 5, Maintenance, 12/21/22 9:11:00 AM EDT, Partial fill upon patient request if the prescription is for a schedule II opioid drug. Start Date: 12/21/22 Status: Ordered Quantity: 90.0 Unit: capsule Repeat number: 1 methylphenidate 20 mg/8 hr oral tablet, extended release 20 mg, 1, tablet, By Mouth, Daily, # 30 tablet, Refills 0, Tot. Refills 0, Maintenance, 02/28/24 2:57:00 PM EDT, Route to Pharmacy Electronically, [id number], Partial fill upon patient request if the prescription is for a schedule II opioid drug., 163, cm, 11/29/23 9:34:00 EDT, Height, 94.1, kg, 01/08/23 7:00:00 EDT, Dry Weight Start Date: 02/28/24 Status: Ordered Quantity: 30.0 Unit: tablet Repeat number: 1 Nurtec ODT 75 mg oral tablet, disintegrating 1 tablet = 75 mg, By Mouth, Every 24 hours, PRN as needed for migraine headache, not to exceed 75 mg in 24 hours, # 8 tablet, 5 Refills, Maintenance, 12/21/22 9:10:00 AM EDT, DIS Tablet, Partial fill upon patient request if the prescription is for a schedule II opioid drug. Start Date: 12/21/22 Status: Ordered Quantity: 8.0 Unit: tablet Repeat number: 1 sertraline 100 mg oral tablet 0 Refills, Maintenance, 09/04/22 12:48:00 PM EDT, Partial fill upon patient request if the prescription is for a schedule II opioid drug. Start Date: 09/04/22 Status: Ordered Repeat number: 1 Slow Fe (as elemental iron) 45 mg oral tablet, extended release 1 tablet = 45 mg, By Mouth, Daily, 0 Refills, Maintenance, 11/22/20 9:56:00 AM EDT, Partial fill upon patient request if the prescription is for a schedule II opioid drug. Start Date: 11/22/20 Status: Ordered Repeat number: 1 topiramate 100 mg oral tablet 1 tablet = 100 mg, By Mouth, Daily, # 30 tablet, 0 Refills, Maintenance, 09/04/22 12:48:00 PM EDT, Tablet, Partial fill upon patient request if the prescription is for a schedule II opioid drug. Start Date: 09/04/22 Status: Ordered Quantity: 30.0 Unit: tablet Repeat number: 1 Vitamin B2 100 mg oral tablet 1 tablet = 100 mg, By Mouth, Daily, # 30 tablet, 0 Refills, Maintenance, 09/04/22 12:50:00 PM EDT, Tablet, Partial fill upon patient request if the prescription is for a schedule II opioid drug. Start Date: 09/04/22 Status: Ordered Quantity: 30.0 Unit: tablet Repeat number: 1 Vitamin D3 1999 intl units oral tablet 1 tablet = 50 mcg, By Mouth, Daily, 0 Refills, Maintenance, 09/04/22 12:49:00 PM EDT, Partial fill upon patient request if the prescription is for a schedule II opioid drug. 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 use Confirmed Active Raynaud's phenomenon Confirmed 03/26/09 Active Situational anxiety Confirmed 03/01/12 Active Tinnitus Confirmed 01/20/08 Active Recurrent vertigo - BPPV Confirmed Active Social History Social History Type Response Smoking Status Never smoker entered on: 09/28/17 Sex Sex Representation Female (finding) Patient Care team information Care Team Personnel Name: Yelena Fischer Position: [facility] PCO Associate Professional Member Role: PCP Address: [address] [place] [address] Telecom: Care Team Related Persons Name: SELMA TEE Name: ELIDA TEE Insurance Providers Guarantor name: JASON TEE Health Plan Information #: 1 Payer: [employer] Member Number: NA Policy Number: NA Group Number: NA
--- OUTSIDE RECORDS SUMMARY | 2024-03-26 09:07 | XMS_ITS | Continuity of Care Document ---
Author Organization [facility] Address [address] [facility], 3r d Floor, [address] [place] [address]- Care Team Providers Care Motion Pictures Cartoonist Name Role Phone Shazia IVAN, Santana Shultz Primary Care Physician [facility]counter [facility] Date(s): 12/22/19 - 01/21/20 [facility] [address] [place], 3rd Floor, [address] [place] [address]- [facility] Allergies, Adverse Reactions, Alerts Substance Reaction [...] Toxoid Vaccine (oldterm) 08/28/00 Given 1Result Comment: [id number] 2Admin Note: [facility] 3Admin Note: [facility] 4Result Comment: [12/10/2014] [facility] 5[facility] 6Admin Note: [facility] 03-22-13 7Result Comment: [id number] 8Admin Note: [facility] 03-22-13. Medications ALPRAZolam 0.5 mg oral tablet 0.5 mg, 1, tablet, By Mouth, 3 times a day, PRN, # 12 tablet, Refills 0, Tot. Refills 0, Maintenance, for anxiety, 08/27/19 16:07:00 EDT, Route to Pharmacy Electronically, [facility], 162.5, cm, 07/07/19 13:50:00 EDT, Height Start Date: 08/27/19 Status: Ordered methylphenidate 10 mg/8 hr oral tablet, extended release 1 tablet = 10 mg, By Mouth, Daily, # 30 tablet, 0 Refills, Maintenance, 01/09/20 13:32:00 EDT, ER Tablet, [facility], 167.64, cm, 12/31/19 13:16:00 EDT, Height Start Date: 01/09/20 Status: Ordered nortriptyline 25 mg oral capsule 50 mg, 2, capsule, By Mouth, Daily at bedtime, # 60 capsule, Refills 5, Tot. Refills 5, Maintenance, 12/25/19 7:35:00 EDT, Route to Pharmacy Electronically, [facility], Increasing dose, 162.5, cm, [...] tablet, 1 Refills, Maintenance, 12/03/19 14:38:00 EDT, [facility], 162.5, cm, 12/03/19 14:19:00 [...]
--- OUTSIDE RECORDS SUMMARY | 2024-03-26 09:07 | XMS_ITS | Continuity of Care Document ---
Author Organization [facility] lt Address [address] [place] [address]- Care Team Providers Care Milk Collector Name Role Phone Esme HERNÁNDEZ, Yelena Mix Primary Care Physician [phone] Encounter [facility] Date(s): 09/14/22 - 10/14/22 [facility] Adult [address] [place] [address]- Allergies, Adverse Reactions, Alerts Substance Reaction Severity Status Reglan bruising Active Immunizations Given and Recorded Vaccine Date Status Refusal Reason [id number] bivalent booster vax 03/25/22 Recorded SARS-CoV-2 (COVID-19) [...] 08/28/00 Given 1Result Comment: PHARMACY 2Result Comment: [id number] 3Admin Note: [facility] 4Admin Note: [facility] 5Result [...] 04/26/21 16:49:00 EST, Route to Pharmacy Electronically, [facility][id number], 164, cm, 03/18/21 11:18:00 EST, Height, 96, [...] 0 Refills, Maintenance, 02/02/21 15:00:00 EDT, Tablet, [facility] #[id number], Partial fill upon patient request if the prescription is for a schedule II opioid drug., 1... Start Date: 02/02/21 Status: Ordered methylphenidate 10 mg/8 hr oral tablet, extended release 1 tablet = 10 mg, By Mouth, Daily, # 30 tablet, 0 Refills, Maintenance, 09/04/22 13:00:00 EDT, ER Tablet, [facility], 979, cm, 09/04/22 12:45:00 EDT, Height Start Date: [...] Care Team Personnel Name: Yelena Fischer Position: [facility] PCO Associate Professional Member Role: PCP Address: Address: [address] [place] [address]- Care Team Related Persons Name: SELMA TEE Address: home [address] [place] [address] Name: ELIDA TEE Address: home [address] [place] [id number]
--- OUTSIDE RECORDS SUMMARY | 2024-03-26 09:07 | XMS_ITS | Continuity of Care Document ---
Author Organization [facility] Address [address] [facility] [address] [place] [address]- Care Team Providers Care Director Credit Risk Name Role Phone Yelena Fischer Primary Care Physician Encounter 06/05/23 - 06/12/23 [facility] [address] [facility], [facility] [address] [place] [address]- Attending Physician: Lauri Arguelles III Admitting Physician: Lauri Arguelles III Referring Physician: Lauri Arguelles III Allergies, Adverse Reactions, Alerts Substance Reaction Severity Status Reglan bruising Active Crestor Active Immunizations Given and Recorded Vaccine Date Status Refusal Reason [id number] bivalent booster vax 03/25/22 Recorded SARS-CoV-2 (COVID-19) [...] 08/28/00 Given 1Result Comment: PHARMACY 2Result Comment: [id number] 3Admin Note: [facility] 4Admin Note: [facility] 5Result Comment: [12/10/2014] [facility] 6[facility] 7Admin Note: [facility] 03-22-13 8Result Comment: [id number] 9Admin Note[facility] 03-22-13. Medications [...] Daily, # 30 tablet, 0 Refills, Maintenance, 05/15/23 13:25:00 EST, ER Tablet, [facility], 163, cm, 01/08/23 11:46:00 EDT, Height, 94.1, kg, 01/08/23 7:00:00 EDT, Dry Weight Start Date: 05/15/23 Status: Ordered Nurtec ODT 75 mg oral [...] Exam Date Time Procedure Performing Provider Status 06/05/23 10:49 AM MM Digital Mammo Screening Lazo , E dmarie; Auth (Verified) Notes: (MM Digital Mammo Screening) Reason For Exam: screening mammogram RESULT: MM Digital Mammo Screening PROCEDURE: MM Digital Mammo Screening INDICATION: Screening for breast cancer. No known palpable abnormalities. COMPARISON: DIANN dating back to 07/24/2017. TECHNIQUE: Full-field digital CC and MLO 3D tomosynthesis images of both breasts were acquired. Computer-aided detection (CAD) was utilized in the interpretation of this study. DENSITY: The breast tissue contains scattered areas of fibroglandular density. FINDINGS: No suspicious masses, suspicious microcalcifications, or areas of architectural distortion are seen in either breast to suggest malignancy. Stable prominent lymph node is seen overlying theright axilla. IMPRESSION: No mammographic evidence of malignancy. RECOMMENDATION: Annual mammographic screening BI-RADS: 2 (Benign) Lay letter mailed to patient WSN: [id number] Ordering Physician: Lauri Arguelles III Dictated By: Kiera Cleary MD, I Dictated Date/Time: 06/05/23 11:00 am Reviewed By: Kiera Cleary MD, I Signed By: Kiera Cleary MD, I Signed Date/Time: 06/05/23 11:00 am Transcribed By: JONA Car Distributor Date/Time: 06/05/23 10:58 am Birads: Social History Social History Type Response Smoking Status Never smoker entered on: 09/28/17 Sex Patient Care team information Care Team Personnel Name: Yelena Fischer Position: [facility] PCO Associate Professional Member Role: PCP Address: Address: [address] [place] [address]- Care Team Related Persons Name: SELMA TEE Address: home [address] [place] [address] Name: ELIDA TEE Address: home [address] [place] [address]
--- OUTSIDE RECORDS SUMMARY | 2024-03-26 09:07 | XMS_ITS | Continuity of Care Document ---
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 Medications ALPRAZolam 0.5 mg oral tablet 0.5 mg, 1, tablet, By Mouth, 3 times a day, PRN, # 12 tablet, Refills 0, Tot. Refills 0, Maintenance, for anxiety, 08/27/19 16:07:00 EDT, Route to Pharmacy Electronically, [facility], 162.5, cm, 07/07/19 13:50:00 EDT, Height Start Date: 08/27/19 Status: Ordered methylphenidate 10 mg/8 hr oral tablet, extended release 1 tablet = 10 mg, By Mouth, Daily, # 30 tablet, 0 Refills, Maintenance, 09/30/19 16:56:00 EDT, ER Tablet, [facility], 162.5, cm, 09/23/19 9:41:00 EDT, Height Start Date: 09/30/19 Status: Ordered Migranal 4 mg/mL nasal spray 1 sprays, Nares, Both, Once, PRN at onset of migraine headache, in each nostril repeat in 15 minutes if needed maximum 4 doses/day , 8 doses/week, # 1 pack/packet, 1 Refills, Soft Stop, 09/23/19 15:39:00 EDT, [place], [facility], 162.5, cm,... 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
--- OUTSIDE RECORDS SUMMARY | 2024-03-26 09:07 | XMS_ITS | Continuity of Care Document ---
Author Organization [facility] Rashard Aung lt Address [address] [place] [address]- Care Team Providers Care Computer Systems Software Architect Name Role Phone Esme HERNÁNDEZ, Yelena Mix Primary Care Physician [phone] Encounter [facility] Date(s): 08/08/21 - 09/07/21 [facility] Adult [address] [place] [address]- Allergies, Adverse Reactions, Alerts Substance Reaction Severity [...] 08/28/00 Given 1Result Comment: PHARMACY 2Result Comment: [id number] 3Admin Note: [facility] 4Admin Note: [facility] 5Result [...] 04/26/21 16:49:00 EST, Route to Pharmacy Electronically, [facility] #[id number], 164, cm, 03/18/21 11:18:00 EST, Height, 96, [...] 0 Refills, Maintenance, 02/02/21 15:00:00 EDT, Tablet, [facility]54026, Partial fill upon patient request if the prescription is for a schedule II opioid drug., 1... 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
--- OUTSIDE RECORDS SUMMARY | 2024-03-26 09:07 | XMS_ITS | Continuity of Care Document ---
Author Organization [facility] Saran Wetzel Aung lt Address [address] [place] [address]- Care Team Providers Care Infantry Officer Name Role Phone Santana Mccray MD Primary Care Physician [facility] Date[facility]s): 07/07/19 - 07/14/19 [facility] Saran Wetzel Adult [address] [place] [address]- [facility] Encounter Diagnosis Chronic migraine - vestibular aura ( vertigo, tinnitus)(Discharge Diagnosis) - 07/07/19 Attending Physician: Santana Mccray MD Allergies, Adverse [...] Toxoid Vaccine (oldterm) 08/28/00 Given 1Result Comment: [id number] 2Admin Note: [facility] 3Admin Note: [facility] 4Result Comment: [12/10/2014] [facility] 5Admin [facility] 6Admin Note: [facility] 03-22-13 7Result Comment: [id number] 8Admin Note: [facility] 03-22-13. Medications predniSONE 10 mg oral tablet See Instructions, [...] Effective Dates Health Status Clinical Service Informant Chronic migraine - vestibular aura ( vertigo, tinnitus) Discharge Diagnosis 07/07/19 Non-Specified Vital Signs Most recent to oldest [Reference Range]: 1 Height 162.5 cm (07/07/19 1:50 PM) Weight 90.1 kg (07/07/19 1:50 PM) Oxygen Saturation [94-100 %] 98 % (07/07/19 1:50 PM) Pulse Rate [55-90 bpm] 74 bpm (07/07/19 1:50 PM) Body Mass Index [18.5-24.99] 34.12 *>HHI* (07/07/19 1:50 PM) Blood Pressure [90-138/55-84 mm Hg] 124/ 76mm Hg (07/07/19 1:50 PM) Temperature [96.8-100.4 DegF] 98.1 DegF (07/07/19 1:50 PM) Blood pressure sites Arm, left (07/07/19 1:50 PM) Temperature Route Oral (07/07/19 1:50 PM) Weight Obtained Via Standing scale (07/07/19 1:50 PM) Social History Social History Type Response Smoking Status Never smoker entered on: 09/28/17 Sex
--- OUTSIDE RECORDS SUMMARY | 2024-03-26 09:07 | XMS_ITS | Continuity of Care Document ---
Author Organization [facility] Saran Wetzel Aung lt Address [address] [place] [address]- Care Team Providers Care Supervisor Rice Milling Name Role Phone Shazia IVAN, Santana Shultz Primary Care Physician [facility] Date(s): 03/08/20 - 04/07/20 [facility] Saran Starkley Adult [address] [place] [address]- Allergies, Adverse Reactions, Alerts Substance Reaction Severity [...] Toxoid Vaccine (oldterm) 08/28/00 Given 1Result Comment: [id number] 2Admin Note: [facility] 3Admin Note: [facility] 4Result Comment: [12/10/2014] [facility] 5Admin [facility] 6Admin Note: [facility] 03-22-13 7Result Comment: [id number] 8Admin Note: [facility] 03-22-13. Medications ALPRAZolam 0.5 mg oral tablet 0.5 mg, 1, tablet, By Mouth, 3 times a day, PRN, # 12 tablet, Refills 0, Tot. Refills 0, Maintenance, for anxiety, 08/27/19 16:07:00 EDT, Route to Pharmacy Electronically, [facility], 162.5, cm, 07/07/19 13:50:00 EDT, Height Start Date: 08/27/19 Status: Ordered magnesium oxide 400 mg oral tablet 1 tablet = 400 mg, By Mouth, Daily, for 30 days, Take with meal, # 30 tablet, 5 Refills, Acute 08/11/20 15:52:00 EDT, 02/13/20 15:52:00 EDT, [facility], 167.64, cm, 02/13/20 15:14:00 EDT, Height, 91.1, kg, 01/13/20 7:22:00 EDT, Dry Weight Start Date: 02/13/20 Stop Date: 08/11/20 Status: Ordered methylphenidate 10 mg/8 hr oral tablet, extended release 1 tablet = 10 mg, By Mouth, Daily, # 30 tablet, 0 Refills, Maintenance, 03/10/20 10:46:00 EST, ER Tablet, [facility], 167.64, cm, 02/13/20 15:14:00 EDT, Height, 91.1, kg, 01/13/20 7:22:00 EDT, Dry Weight Start Date: 03/10/20 Status: Ordered nortriptyline 25 mg oral capsule 75 mg, 3, capsule, By Mouth, Daily at bedtime, # 90 capsule, Refills 5, Tot. Refills 5, Maintenance, 02/13/20 15:49:00 EDT, Route to Pharmacy Electronically, [facility], 167.64, cm, 02/13/20 15:14:00 [...] tablet, 1 Refills, Maintenance, 02/13/20 15:53:00 EDT, [facility], 167.64, cm, 02/13/20 15:14:00 [...]
--- OUTSIDE RECORDS SUMMARY | 2024-03-26 09:07 | XMS_ITS | Continuity of Care Document ---
Author Organization [facility] Rashard Aung lt Address [address] [place] [address]- Care Team Providers Care Lumber Stacker Name Role Phone Yelena Fischer Primary Care Physician Encounter [facility] Date(s): 12/12/21 - 12/19/21 [facility] Umbarger Adult [address] [place] [address]- Encounter Diagnosis Medicare annual wellness visit, subsequent(Discharge Diagnosis) - 12/19/21 Attending Physician: Yelena Fischer Allergies, Adverse Reactions, [...] 08/28/00 Given 1Result Comment: PHARMACY 2Result Comment: [id number] 3Admin Note: [facility] 4Admin Note: [facility] 5Result [...] 04/26/21 16:49:00 EST, Route to Pharmacy Electronically, [facility][id number], 164, cm, 03/18/21 11:18:00 EST, Height, 96, [...] 0 Refills, Maintenance, 02/02/21 15:00:00 EDT, Tablet, [facility] #[id number], Partial fill upon patient request if the prescription is for a schedule II opioid drug., 1... Start Date: 02/02/21 Status: Ordered methylphenidate 10 mg/8 hr oral tablet, extended release 1 tablet = 10 mg, By Mouth, Daily, # 30 tablet, 0 Refills, Maintenance, 11/23/21 10:20:00 EDT, ER Tablet, [facility][id number], 164, cm, 03/18/21 11:18:00 EST, Height, 96, kg, 08/10/20 7:04:00EDT, Dry Weight Start Date: 11/23/21 Status: Ordered prochlorperazine 10 mg oral tablet [...] Active Obese class II(Confirmed) Active Obesity(Confirmed) Active longterm prescription benzo diazepine use(Confirmed) Active Raynaud's phenomenon(Confirmed) 03/26/09 Active Situational anxiety(Confirmed) 03/01/12 Active Tinnitus(Confirmed) 01/20/08 Active Recurrent vertigo - BPPV(Confirmed) Active Diagnosis Diagnosis Type Effective Dates Health Status Clinical Service Informant Medicare annual wellness visit, subsequent Discharge Diagnosis 12/19/21 Vital Signs Most recent to oldest [Reference Range]: 1 2 Height 164.0 cm (12/12/21 2:34 PM) 164.0 cm (12/12/21 2:17 PM) Weight 98.1 kg (12/12/21 2:17 PM) Oxygen Saturation [94-100 %] 98 % (12/12/21 2:17 PM) Pulse Rate [55-90 bpm] 62 bpm (12/12/21 2:17 PM) Body Mass Index [18.5-24.99] 36.47 *>HHI* (12/12/21 2:17 PM) Blood Pressure [90-138/55-84 mm Hg] 128/ 72mm Hg (12/12/21 2:34 PM) 141/74mm Hg *H* (12/12/21 2:17 PM) Blood pressure sites Arm, right (12/12/21 2:17 PM) Weight Obtained Via Standing scale (12/12/21 2:17 PM) Social History Social History Type Response Smoking Status Never smoker entered on: 09/28/17 Sex
--- OUTSIDE RECORDS SUMMARY | 2024-03-26 09:07 | XMS_ITS | Continuity of Care Document ---
Author Organization [facility] Saran Wetzel Aung lt Address [address] [place] [address]- Care Team Providers Care Aerodynamic Consultant Name Role Phone Santana Mccray MD Primary Care Physician [phone] [place] [facility] [place] 02/22/21 - 03/01/21 [facility] Adult [address] [place] [address]- Encounter Diagnosis Migraine with vertigo(Discharge Diagnosis) - 02/22/21 Recurrent vertigo - BPPV(Discharge Diagnosis) - 02/22/21 Attending Physician: Santana Mccray MD Allergies, Adverse [...] 08/28/00 Given 1Result Comment: PHARMACY 2Result Comment: [id number] 3Admin Note: [facility] 4Admin Note: [facility] 5Result [...] 02/16/21 17:04:00 EDT, Route to Pharmacy Electronically, [id number], 164, cm, 11/22/20 9:52:00 EDT, Height, 96, [...] 0 Refills, Maintenance, 02/02/21 15:00:00 EDT, Tablet, [id number], Partial fill upon patient request if the prescription is for a schedule II opioid drug., 1... 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(Confirmed) Active Raynaud's phenomenon(Confirmed) 03/26/09 Active Situational anxiety(Confirmed) 03/01/12 Active Tinnitus(Confirmed) 01/20/08 Active Recurrent vertigo - BPPV(Confirmed) Active Diagnosis Diagnosis Type Effective Dates Health Status Cl inical Service Informant Migraine with vertigo Discharge Diagnosis 02/22/21 Recurrent vertigo - BPPV Discharge Diagnosis 02/22/21 Vital Signs Most recent to oldest [Reference Range]: 1 Height 164.0 cm (02/22/21 9:27 AM) Weight 89.0 kg (02/22/21 9:27 AM) Body Mass Index [18.5-24.99] 33.09 *>HHI* (02/22/21 9:27 AM) Weight Obtained Via Standing scale (02/22/21 9:27 AM) Social History Social History Type Response Smoking Status Never smoker entered on: 09/28/17 Sex
--- OUTSIDE RECORDS SUMMARY | 2024-03-26 09:07 | XMS_ITS | Continuity of Care Document ---
Author Organization [facility] Rashard Aung lt Address [address] [place] [address]- Care Team Providers Care Restaurant Manager Name Role Phone Esme HERNÁNDEZ, Yelena Mix Primary Care Physician Encounter [facility] Date(s): 08/15/21 - 09/14/21 [facility] Adult [address] [place] [address]- Allergies, Adverse Reactions, Alerts Substance Reaction Severity [...] 08/28/00 Given 1Result Comment: PHARMACY 2Result Comment: [id number] 3Admin Note: [facility] 4Admin Note: [facility] 5Result [...] 04/26/21 16:49:00 EST, Route to Pharmacy Electronically, [facility] #[id number], 164, cm, 03/18/21 11:18:00 EST, Height, 96, [...] 0 Refills, Maintenance, 02/02/21 15:00:00 EDT, Tablet, [facility][id number], Partial fill upon patient request if the prescription is for a schedule II opioid drug., 1... 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
--- OUTSIDE RECORDS SUMMARY | 2024-03-26 09:07 | XMS_ITS | Continuity of Care Document ---
Author Organization [facility] Address [address] [facility], [address] Floor, [address] [place] [address]- Care Team Providers Care Major Appliance Assembly Supervisor Name Role Phone Shazia IVAN, Santana Shultz Primary Care Physician [facility]counter [facility] Date(s): 03/24/20 - 07/22/20 [facility] [address] [facility], 3rd Floor, [address] [place] [id number] Attending Physician: Felicitas Dunbar MD Admitting Physician: [...] 08/28/00 Given 1Result Comment: PHARMACY 2Result Comment: [id number] 3Admin Note: [facility] 4Admin Note: [facility] 5Result Comment: [12/10/2014] [facility] 6Admin [facility] 7Admin Note: [facility] 03-22-13 8Result Comment: [id number] 9Admin Note: [facility] 03-22-13. Medications ALPRAZolam 0.5 mg oral tablet 0.5 mg, 1, tablet, By Mouth, 3 times a day, PRN, # 12 tablet, Refills 0, Tot. Refills 0, Maintenance, for anxiety, 05/24/20 9:44:00 EST, Route to Pharmacy Electronically, [facility], 167.64, cm, 05/24/20 9:15:00 EST, Height, 91.1, kg, 01/12... Start Date: 05/24/20 Status: Ordered magnesium oxide 400 mg oral tablet 1 tablet = 400 mg, By Mouth, Daily, for 30 days, Take with meal, # 30 tablet, 5 Refills, Acute 08/11/20 15:52:00 EDT, 02/13/20 15:52:00 EDT, [facility], 167.64, cm, 02/13/20 15:14:00 EDT, Height, 91.1, kg, 01/13/20 7:22:00 EDT, Dry Weight Start Date: 02/13/20 Stop Date: 08/11/20 Status: Ordered methylphenidate 10 mg/8 hr oral tablet, extended release 1 tablet = 10 mg, By Mouth, Daily, # 30 tablet, 0 Refills, Maintenance, 06/22/20 13:46:00 EST, ER Tablet, [facility], 167.64, cm, 05/24/20 9:15:00 EST, Height, 91.1, kg, 01/13/20 7:22:00 EDT, Dry Weight Start Date: 06/22/20 Status: Ordered nortriptyline 25 mg oral capsule 75 mg, 3, capsule, By Mouth, Daily at bedtime, # 90 capsule, Refills 5, Tot. Refills 5, Maintenance, 02/13/20 15:49:00 EDT, Route to Pharmacy Electronically, [facility], 167.64, cm, 02/13/20 15:14:00 [...]
--- OUTSIDE RECORDS SUMMARY | 2024-03-26 09:07 | XMS_ITS | Continuity of Care Document ---
Author Organization [facility] Address [address] [facility] [address] [place] [address]- Care Team Providers Care Web Designer Name Role Phone Esme HERNÁNDEZ, Yelena Mix Primary Care Physician [phone] [id number] Date(s): 01/14/24 - 02/15/24 [facility] [address] [facility] [address] [place] [address]- Attending Physician: Juan Uiras MD Admitting Physician: Juan Urias MD Allergies, Adverse Reactions, Alerts Substance Reaction [...] virus vaccine, inactivated 6 03/24/13 Gi ricci [id number] bivalent booster vax 03/25/22 Recorded SARS-CoV-2 (COVID-19) [...] Toxoid Vaccine (oldterm) 08/28/00 Given 1Result Comment: [id number] 2Admin Note: [facility] 3Admin Note: [facility] 4Result Comment: [12/10/2014] [facility] 5[facility] 6Admin Note: [facility] 03-22-13 7Result Comment: PHARMACY 8Result Comment: [id number] 9Admin Note: [facility] 03-22-13. Medications [...] class I Confirmed Active Obesity Confirmed Active alf prescription benzodiazepine use Confirmed Active Raynaud's phenomenon Confirmed 03/26/09 Active Situational anxiety Confirmed 03/01/12 Active Tinnitus Confirmed 01/20/08 Active Recurrent vertigo - BPPV Confirmed Active Social History Social History Type Response Smoking Status Never smoker entered on: 09/28/17 Sex Patient Care team information Care Team Personnel Name: Yelena Fischer Position: [facility] Associate Professional Member Role: PCP Address: Address: [address] [place] [id number] Care Team Related Persons Name: SELMA TEE Address: home [address] [place] [address] Name: ELIDA TEE Address: home [address] [place] [id number]
--- OUTSIDE RECORDS SUMMARY | 2024-03-26 09:07 | XMS_ITS | Continuity of Care Document ---
Author Organization [facility] Rashard Aung lt Address [address] [place] [address]- Care Team Providers Care Car Pilot Name Role Phone Esme HERNÁNDEZ, Yelena Mix Primary Care Physician Encounter [facility] Date(s): 04/25/21 - 06/25/21 [facility] Adult [address] [place] [address]- Attending Physician: Santana Mccray MD Allergies, Adverse [...] 08/28/00 Given 1Result Comment: PHARMACY 2Result Comment: [id number] 3Admin Note: [facility] 4Admin Note: [facility] 5Result [...] 04/26/21 16:49:00 EST, Route to Pharmacy Electronically, [facility][id number], 164, cm, 03/18/21 11:18:00 EST, Height, 96, [...] 0 Refills, Maintenance, 02/02/21 15:00:00 EDT, Tablet, [facility] #[id number], Partial fill upon patient request if the prescription is for a schedule II opioid drug., 1... Start Date: 02/02/21 Status: Ordered methylphenidate 10 mg/8 hr oral tablet, extended release 1 tablet = 10 mg, By Mouth, Daily, # 30 tablet, 0 Refills, Maintenance, 05/27/21 14:21:00 EST, ER Tablet, [facility] #[id number], 164, cm, 03/18/21 11:18:00 EST, Height, 96, [...] Active Obese class I(Confirmed) Active Obesity(Confirmed) Active longterm prescription benzo diazepine use(Confirmed) Active Raynaud's phenomenon(Confirmed) 03/26/09 Active Situational anxiety(Confirmed) 03/01/12 Active Tinnitus(Confirmed) 01/20/08 Active Recurrent vertigo - BPPV(Confirmed) Active Social History Social History Type Response Smoking Status Never smoker entered on: 09/28/17 Sex
--- OUTSIDE RECORDS SUMMARY | 2024-03-26 09:07 | XMS_ITS | Continuity of Care Document ---
Author Organization [facility] Saran Wetzel Aung lt Address [address] [place] [address]- Care Team Providers Care Salesperson Men'S Hats Name Role Phone Shazia IVAN, Santana Shultz Primary Care Physician [facility] Date(s): 02/04/20 - 03/05/20 [facility] Saran Starkley Adult [address] [place] [address]- Allergies, Adverse Reactions, Alerts Substance Reaction Severity [...] Toxoid Vaccine (oldterm) 08/28/00 Given 1Result Comment: [id number] 2Admin Note: [facility] 3Admin Note: [facility] 4Result Comment: [12/10/2014] [facility] 5[facility] 6Admin Note: [facility] 03-22-13 7Result Comment: [id number] 8Admin Note: [facility] 03-22-13. Medications ALPRAZolam 0.5 mg oral tablet 0.5 mg, 1, tablet, By Mouth, 3 times a day, PRN, # 12 tablet, Refills 0, Tot. Refills 0, Maintenance, for anxiety, 08/27/19 16:07:00 EDT, Route to Pharmacy Electronically, [facility], 162.5, cm, 07/07/19 13:50:00 EDT, Height Start Date: 08/27/19 Status: Ordered magnesium oxide 400 mg oral tablet 1 tablet = 400 mg, By Mouth, Daily, for 30 days, Take with meal, # 30 tablet, 5 Refills, Acute 08/11/20 15:52:00 EDT, 02/13/20 15:52:00 EDT, [facility], 167.64, cm, 02/13/20 15:14:00 EDT, Height, 91.1, kg, 01/13/20 7:22:00 EDT, Dry Weight Start Date: 02/13/20 Stop Date: 08/11/20 Status: Ordered methylphenidate 10 mg/8 hr oral tablet, extended release 1 tablet = 10 mg, By Mouth, Daily, # 30 tablet, 0 Refills, Maintenance, 02/05/20 15:38:00 EDT, ER Tablet, [facility], 167.64, cm, 01/13/20 7:22:00 EDT, Height, 91.1, kg, 01/13/20 7:22:00 EDT, Dry Weight Start Date: 02/05/20 Status: Ordered nortriptyline 25 mg oral capsule 75 mg, 3, capsule, By Mouth, Daily at bedtime, # 90 capsule, Refills 5, Tot. Refills 5, Maintenance, 02/13/20 15:49:00 EDT, Route to Pharmacy Electronically, [facility], 167.64, cm, 02/13/20 15:14:00 [...] tablet, 1 Refills, Maintenance, 02/13/20 15:53:00 EDT, [facility], 167.64, cm, 02/13/20 15:14:00 [...]
--- OUTSIDE RECORDS SUMMARY | 2024-03-26 09:07 | XMS_ITS | Continuity of Care Document ---
Author Organization [facility] Address [address] [facility], [address] Floor, [address] [place] [address]- Care Team Providers Care Manager Material Name Role Phone Shazia IVAN, Santana Shultz Primary Care Physician [phone] [facility]counter [facility] Date(s): 01/27/20 - 02/26/20 [facility] [address], [address], [address] [place] [address] [facility] Allergies, Adverse Reactions, Alerts Substance Reaction [...] Toxoid Vaccine (oldterm) 08/28/00 Given 1Result Comment: [id number] 2Admin Note: [facility] 3Admin Note: [facility] 4Result Comment: [12/10/2014] [facility] 5[facility] 6Admin Note: [facility] 03-22-13 7Result Comment: [id number] 8Admin Note: [facility] 03-22-13. Medications [...] Acute 08/11/20 15:52:00 EDT, 02/13/20 15:52:00 EDT, [facility], 167.64, cm, 02/13/20 15:14:00 EDT, Height, 91.1, kg, 01/13/20 7:22:00 EDT, Dry Weight Start Date: 02/13/20 Stop Date: 08/11/20 Status: Ordered methylphenidate 10 mg/8 hr oral tablet, extended release 1 tablet = 10 mg, By Mouth, Daily, # 30 tablet, 0 Refills, Maintenance, 02/05/20 15:38:00 EDT, ER Tablet, [facility], 167.64, cm, 01/13/20 7:22:00 EDT, Height, 91.1, kg, 01/13/20 7:22:00 EDT, Dry Weight Start Date: 02/05/20 Status: Ordered nortriptyline 25 mg oral capsule 75 mg, 3, capsule, By Mouth, Daily at bedtime, # 90 capsule, Refills 5, Tot. Refills 5, Maintenance, 02/13/20 15:49:00 EDT, Route to Pharmacy Electronically, [facility], 167.64, cm, 02/13/20 15:14:00 EDT, [...] tablet, 1 Refills, Maintenance, 02/13/20 15:53:00 EDT, [facility], 167.64, cm, 02/13/20 15:14:00 EDT, [...]
--- OUTSIDE RECORDS SUMMARY | 2024-03-26 09:07 | XMS_ITS | Continuity of Care Document ---
Author Organization [facility] Address [address] [facility], [address] d Floor, [address] [place] [address]- Care Team Providers Care Rivet Machine Operator Name Role Phone Shazia IVAN, Santana Shultz Primary Care Physician [phone] Encounter [facility] Date(s): 04/19/20 - 05/19/20 [facility] [address] [place], [address] Floor, [address] [place] [id number] Allergies, Adverse Reactions, Alerts Substance Reaction Severity [...] Toxoid Vaccine (oldterm) 08/28/00 Given 1Result Comment: [id number] 2Admin Note: [facility] 3Admin Note: [facility] 4Result [...] 08/27/19 16:07:00 EDT, Route to Pharmacy Electronically, [facility], 162.5, cm, 07/07/19 13:50:00 EDT, Height Start Date: 08/27/19 Status: Ordered magnesium oxide 400 mg oral tablet 1 tablet = 400 mg, By Mouth, Daily, for 30 days, Take with meal, # 30 tablet, 5 Refills, Acute 08/11/20 15:52:00 EDT, 02/13/20 15:52:00 EDT, [facility], 167.64, cm, 02/13/20 15:14:00 EDT, Height, 91.1, kg, 01/13/20 7:22:00 EDT, Dry Weight Start Date: 02/13/20 Stop Date: 08/11/20 Status: Ordered methylphenidate 10 mg/8 hr oral tablet, extended release 1 tablet = 10 mg, By Mouth, Daily, # 30 tablet, 0 Refills, Maintenance, 04/12/20 16:52:00 EST, ER Tablet, [facility], 167.64, cm, 02/13/20 15:14:00 EDT, Height, 91.1, kg, 01/13/20 7:22:00 EDT, Dry Weight Start Date: 04/12/20 Status: Ordered metoclopramide 10 mg oral tablet 1 tablet = 10 mg, By Mouth, 2 times a day, PRN Nausea & Vomiting, # 10 tablet, 0 Refills, Maintenance, 04/22/20 8:07:00 EST, [facility], Partial fill upon patient request if the prescription is for a schedule II opioid drug., 167.64, cm, 10... Start Date: 04/22/20 Status: Ordered nortriptyline 25 mg oral capsule 75 mg, 3, capsule, By Mouth, Daily at bedtime, # 90 capsule, Refills 5, Tot. Refills 5, Maintenance, 02/13/20 15:49:00 EDT, Route to Pharmacy Electronically, [facility], 167.64, cm, 02/13/20 15:14:00 [...] tablet, 1 Refills, Maintenance, 02/13/20 15:53:00 EDT, [facility], 167.64, cm, 02/13/20 15:14:00 [...]
--- OUTSIDE RECORDS SUMMARY | 2024-03-26 09:07 | XMS_ITS | Continuity of Care Document ---
Author Organization [facility] Aung lt Address [address] [place] [address]- Care Team Providers Care Learn To Swim Instructor Name Role Phone Yelena Fischer Primary Care Physician [phone] [facility] [facility] Date(s): 09/04/22 - 10/04/22 [facility] Adult [address] [place] [address]- Attending Physician: Admtr, Ar8 Allergies, Adverse Reactions, Alerts Substance Reaction Severity Status Reglan bruising Active Immunizations Given and Recorded Vaccine Date Status Refusal Reason [id number] bivalent booster vax 03/25/22 Recorded SARS-CoV-2 (COVID-19) [...] 08/28/00 Given 1Result Comment: PHARMACY 2Result Comment: [id number] 3Admin Note: [facility] 4Admin Note: [facility] 5Result [...] 04/26/21 16:49:00 EST, Route to Pharmacy Electronically, [facility][id number], 164, cm, 03/18/21 11:18:00 EST, Height, 96, [...] 0 Refills, Maintenance, 02/02/21 15:00:00 EDT, Tablet, [facility] #[id number], Partial fill upon patient request if the [...] vertigo Confirmed Active Obesity Confirmed Active 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 Confirmed Active Raynaud's phenomenon Confirmed 03/26/09 Active Severe obesity (BMI 35.0-39.9) with comorbidity Confirmed Active Situational anxiety Confirmed 03/01/12 Active Tinnitus Confirmed 01/20/08 Active Recurrent vertigo - BPPV Confirmed Active Social History Social History Type Response Smoking Status Never smoker entered on: 09/28/17 Sex EKG study * Event Display: EKG Authored Date: * Event Display: EKG Authored Date: Cardiology * Francia Barker: PERFORM Event Display: Cardiovascular Results Scanned Authored Date: Laboratory * Event Display: Non BH Lab Results Authored Date: * Event Display: Non BH Lab Results Authored Date: Radiology * Event Display: MRI Knee, Non- BH Authored Date: * Francia Barker: PERFORM Event Display: Radiology Results Scanned Authored Date: Patient Care team information Care Team Personnel Name: Yelena Fischer Position: S PCO Associate Professional Member Role: PCP Address: Address: [address] [place] [address]- Care Team Related Persons Name: SELMA TEE Address: home [address] [place] [address] Name: ELIDA TEE Address: home [address] [place] [address]
--- OUTSIDE RECORDS SUMMARY | 2024-03-26 09:07 | XMS_ITS | Continuity of Care Document ---
Author Organization [facility] Saran Wetzel Aung lt Address [address] [place] [address]- Care Team Providers Care Sub Prior Name Role Phone Santana Mccray MD Primary Care Physician [phone] Encounter [facility] Date(s): 09/19/19 - 10/23/19 [facility] Saran Starkley Adult [address] [place] [address]- [facility] Attending Physician: Santana Mccray MD Allergies, Adverse [...] Toxoid Vaccine (oldterm) 08/28/00 Given 1Result Comment: [id number] 2Admin Note: [facility] 3Admin Note: [facility] 4Result [...] 08/27/19 16:07:00 EDT, Route to Pharmacy Electronically, [facility], 162.5, cm, 07/07/19 13:50:00 EDT, Height Start Date: 08/27/19 Status: Ordered methylphenidate 10 mg/8 hr oral tablet, extended release 1 tablet = 10 mg, By Mouth, Daily, # 30 tablet, 0 Refills, Maintenance, 09/30/19 16:56:00 EDT, ER Tablet, [facility], 162.5, cm, 09/23/19 9:41:00 EDT, Height Start Date: 09/30/19 Status: Ordered Migranal 4 mg/mL nasal spray 1 sprays, Nares, Both, Once, PRN at onset of migraine headache, in each nostril repeat in 15 minutes if needed maximum 4 doses/day , 8 doses/week, # 1 pack/packet, 1 Refills, Soft Stop, 09/23/19 15:39:00 EDT, [place], [facility], 162.5, cm,... Start Date: 09/23/19 Status: Ordered nortriptyline 10 mg oral capsule 20 mg, 2, capsule, By Mouth, Daily at bedtime, Start 1 cap bedtime x 2 weeks, then increase to 2 caps bedtime., # 60 capsule, Refills 5, Tot. Refills 5, Maintenance, 10/17/19 8:51:00 EDT, Route to Pharmacy Electronically, [facility], 162.5,... Start Date: 10/17/19 [...]
--- OUTSIDE RECORDS SUMMARY | 2024-03-26 09:07 | XMS_ITS | Continuity of Care Document ---
Author Organization [facility] Saran Wetzel Aung lt Address [address] [place] [address]- Care Team Providers Care Cab Worker Name Role Phone Shazia IVAN, Santana Shultz Primary Care Physician Encounter [facility] Date(s): 10/29/19 - 11/28/19 [facility] Saran Starkley Adult [address] [place] [address]- [facility] Allergies, Adverse Reactions, Alerts Substance Reaction Severity [...] Toxoid Vaccine (oldterm) 08/28/00 Given 1Result Comment: [id number] 2Admin Note: [facility] 3Admin Note: [facility] 4Result Comment: [12/10/2014] [facility] 6[facility] Note: [facility] 03-22-13 7Result Comment: [id number] 8Admin Note: [facility] 03-22-13. Medications ALPRAZolam 0.5 mg oral tablet 0.5 mg, 1, tablet, By Mouth, 3 times a day, PRN, # 12 tablet, Refills 0, Tot. Refills 0, Maintenance, for anxiety, 08/27/19 16:07:00 EDT, Route to Pharmacy Electronically, [facility], 162.5, cm, 07/07/19 13:50:00 EDT, Height Start Date: 08/27/19 Status: Ordered methylphenidate 10 mg/8 hr oral tablet, extended release 1 tablet = 10 mg, By Mouth, Daily, # 30 tablet, 0 Refills, Maintenance, 10/30/19 16:42:00 EDT, ER Tablet, [facility], 162.5, cm, 09/23/19 9:41:00 EDT, Height Start Date: 10/30/19 Status: Ordered Migranol Herbal Support Migranol Herbal Support, Refills 0, Maintenance, tid, 11/14/19 12:03:00 EDT, Supply Start Date: 11/14/19 Status: Ordered nortriptyline 10 mg oral capsule 30 mg, 3, capsule, By Mouth, Daily at bedtime, # 90 capsule, Refills 5, Tot. Refills 5, Maintenance, 11/27/19 11:04:00 EDT, Route to Pharmacy Electronically, [facility], Increasing dose., 162.5, cm, [...]
--- OUTSIDE RECORDS SUMMARY | 2024-03-26 09:07 | XMS_ITS | Continuity of Care Document ---
Author Organization [facility] Address [address] [place] [address]- Care Team Providers Care Pick Up Name Role Phone Santana Mccray MD Primary Care Physician [phone] Encounter 10/28/19 - 11/04/19 [facility] [address] [email or web address] [address] [place] [address]- [phone] Attending Physician: Santana Mccray MD Admitting Physician: [...] Toxoid Vaccine (oldterm) 08/28/00 Given 1Result Comment: [id number] 2Admin Note: [facility] 3Admin Note: [facility] 4Result [...] 08/27/19 16:07:00 EDT, Route to Pharmacy Electronically, [facility], 162.5, cm, 07/07/19 [...] Refills, Maintenance, 10/30/19 16:42:00 EDT, ER Tablet, [facility], 162.5, cm, 09/23/19 9:41:00 EDT, Height Start Date: 10/30/19 Status: Ordered Migranal 4 mg/mL nasal spray 1 sprays, Nares, Both, Once, PRN at onset of migraine headache, in each nostril repeat in 15 minutes if needed maximum 4 doses/day , 8 doses/week, # 1 pack/packet, 1 Refills, Soft Stop, 09/23/19 15:39:00 EDT, [place], [facility], 162.5, cm,... Start Date: 09/23/19 Status: Ordered nortriptyline 10 mg oral capsule 20 mg, 2, capsule, By Mouth, Daily at bedtime, Start 1 cap bedtime x 2 weeks, then increase to 2 caps bedtime., # 60 capsule, Refills 5, Tot. Refills 5, Maintenance, 10/17/19 8:51:00 EDT, Route to Pharmacy Electronically, [facility], 162.5,... Start Date: 10/17/19 [...]
--- OUTSIDE RECORDS SUMMARY | 2024-03-26 09:07 | XMS_ITS | Continuity of Care Document ---
Author Organization [facility] Rashard Aung lt Address [address] [place] [address]- Care Team Providers Care Hotel Desk Clerk Name Role Phone Esme HERNÁNDEZ, Yelena Mix Primary Care Physician Encounter [facility] Date(s): 05/26/21 - 06/25/21 [facility] Adult [address] [place] [address]- Attending Physician: Admtr, Ar8 Allergies, Adverse Reactions, [...] 08/28/00 Given 1Result Comment: PHARMACY 2Result Comment: [id number] 3Admin Note: [facility] 4Admin Note: [facility] 5Result [...] 04/26/21 16:49:00 EST, Route to Pharmacy Electronically, [id number], 164, cm, 03/18/21 11:18:00 EST, Height, 96, [...] 0 Refills, Maintenance, 02/02/21 15:00:00 EDT, Tablet, [facility][id number], Partial fill upon patient request if the prescription is for a schedule II opioid drug., 1... Start Date: 02/02/21 Status: Ordered methylphenidate 10 mg/8 hr oral tablet, extended release 1 tablet = 10 mg, By Mouth, Daily, # 30 tablet, 0 Refills, Maintenance, 05/27/21 14:21:00 EST, ER Tablet, [facility] #[id number], 164, cm, 03/18/21 11:18:00 EST, Height, 96, [...] Active Obese class I(Confirmed) Active Obesity(Confirmed) Active long-term prescription benzo diazepine use(Confirmed) Active Raynaud's phenomenon(Confirmed) 03/26/09 Active Situational anxiety(Confirmed) 03/01/12 Active Tinnitus(Confirmed) 01/20/08 Active Recurrent vertigo - BPPV(Confirmed) Active Social History Social History Type Response Smoking Status Never smoker entered on: 09/28/17 Sex
--- OUTSIDE RECORDS SUMMARY | 2024-03-26 09:07 | XMS_ITS | Continuity of Care Document ---
Author Organization [facility] Rashard Aung lt Address [address] [place] [address]- Care Team Providers Care Access Developer Name Role Phone Esme HERNÁNDEZ, Yelena Mix Primary Care Physician [phone] En[facility] Date(s): 12/05/23 - 01/04/24 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 prescription benzodiazepine use Confirmed Active Raynaud's phenomenon Confirmed 03/26/09 Active Situational anxiety Confirmed 03/01/12 Active Tinnitus Confirmed 01/20/08 Active Recurrent vertigo - BPPV Confirmed Active Social History Social History Type Response Smoking Status Never smoker entered on: 09/28/17 Sex Patient Care team information Care Team Personnel Name: Yelena Fischer Position: [facility] PCO Associate Professional Member Role: PCP Address: Address: [address] [place] [address]- Care Team Related Persons Name: SELMA TEE Address: home [address] [place] [address] Name: ELIDA TEE Address: home [address] [place] [address]
--- OUTSIDE RECORDS SUMMARY | 2024-03-26 09:07 | XMS_ITS | Continuity of Care Document ---
Author Organization [facility] Address [address] [facility], [address] Floor, [address] [place] [address]- Care Team Providers Care Paper Tube Cutter Name Role Phone Santana Mccray MD Primary Care Physician Encounter [facility] Date(s): 09/02/19 - 10/16/19 [facility] [address], [address], [address] [place] [address]- [facility] Attending Physician: Josie JADE, Efren Sargent Referring [...] Toxoid Vaccine (oldterm) 08/28/00 Given 1Result Comment: [id number] 2Admin Note: [facility] 3Admin Note: [facility] 4Result [...] 08/27/19 16:07:00 EDT, Route to Pharmacy Electronically, [facility], 162.5, cm, 07/07/19 13:50:00 EDT, Height Start Date: 08/27/19 Status: Ordered methylphenidate 10 mg/8 hr oral tablet, extended release 1 tablet = 10 mg, By Mouth, Daily, # 30 tablet, 0 Refills, Maintenance, 09/30/19 16:56:00 EDT, ER Tablet, [facility], 162.5, cm, 09/23/19 9:41:00 EDT, Height Start Date: 09/30/19 Status: Ordered Migranal 4 mg/mL nasal spray 1 sprays, Nares, Both, Once, PRN at onset of migraine headache, in each nostril repeat in 15 minutes if needed maximum 4 doses/day , 8 doses/week, # 1 pack/packet, 1 Refills, Soft Stop, 09/23/19 15:39:00 EDT, [place], [facility], 162.5, cm,... Start Date: [...]
--- OUTSIDE RECORDS SUMMARY | 2024-03-26 09:08 | XMS_ITS ---
Author Organization [facility] Jenni joan [place] Address [address] [facility] [place] [address] Care Team Providers Care On Site Property Manager Name Role Phone Lauri Peoples MD Primary Care Provider Unavailabl e Black, Nely Unavailable [phone] Allergies No Known Allergies REASON FOR VISIT Wart(s), Skin problem(s) Medications Medication SIG (Take, Route, Frequency, Duration) Notes Start Date End Date Status Sertraline HCl 50 MG 1 tablet Orally Onc e a day Active Methylphenidate HCl ER 10 MG 1 tablet Or ally Twice a day Active Ezetimibe 10 MG 1 tablet Orally Once a day Active Topiramate 100 MG 1 tablet Orally Once a day Active Ammonium Lactate 12 % 1 application Exte rnally to feet except for between the toes Twice a day for 30 days Active Nurtec 75 MG 1 tablet on the tong ue and allow to dissolve Orally Active Erenumab-aooe 140 MG/ML as directed Subcutaneous Active Gabapentin 300 MG 1 capsule Orally at bedtime Active Social History Tobacco Use: Social History Observation Description Date Details (start date - stop date) Never Smoker NA - NA Tobacco Use/Smoking Question Answer Notes Are you a: nonsmoker Additional Findings: Tobacco Non-User Current no n-smoker Alcohol Screen Question Answer Notes Did you have a drink containing alcohol in the p ast year? No Points 0 Interpretation Negative Tobacco use other than smoking: Question Answer Notes Are you an other tobacco user? No Problems Problem Type SNOMED Code ICD Code Onset Dates Problem Status W/U Status Risk Notes Problem Plantar wart (08477444) Plantar wart (B07.0) Active confirmed Vital Signs Height 5 ft 5.5in in 01/10/2024 Weight 190 lbs 01/10/2024 BMI 31.13 kg/m2 01/10/2024 Procedures Procedure Date Ordered Date Performed Result Body Sit e 29365-Ypkz Destruction, -01/10/2024 N/A Encounters Encounter Location Date Provider Diagnosis [facility] [place] [address] [place] [address] 01/10/2024 Nely Sood Right foot pain M79.671 ; Plantar wart B07.0 ; Left foot pain M79.672 and Xerosis of skin L85.3 Assessments Encounter Date Diagnosis (ICD Code) Assessment Notes Treatment Notes Treatment Clinical Notes Section Notes 01/10/2024 Right foot pain (ICD-10 - M79.671) 01/10/2024 Plantar wart (ICD-10 - B07.0) 01/10/2024 Left foot pain (ICD-10 - M79.672) 01/10/2024 Xerosis of skin (ICD-10 - L85.3) Plan Of Treatment Medication Medication Name Sig Start Date Stop Date Notes Ammonium Lactate 12 % 1 application Exte rnally to feet except for between the toes Twice a day for 30 days Pending Test Test Name Order Date [id number] Destruction, -01/10/2024 Next Appt Details Follow Up: 2 Months, Reason: Provider Name:Nely Sood , 04/07/2024 10:15:00 AM, [address] [place], [address], Procedure Notes * Category Sub-Category Detail Notes Wart Treatment Procedure Verrucae were de brided to pin-point bleeding margins with sterile 15 surgical blade - 24292 , treated with CANTHERONE Plus Salicylic acid. The patient was informed of the possible skin reactions to Canthardin, including, but not limited to, pain, difficulty standing/walking for up to a week or more, redness, swelling, blistering, infection. Recommendations were made for the patient to take Tylenol and/or Anti-inflammatories such as Motrin for pain if their PMH allows, apply ice, or soak in cool water twice daily for 20 minutes for blistering, and call the office if reaction is severe Progress Notes * Gudelia HYDE LDO B:1950 (73 yo F)Acc No.[id number]:01/10/2024 Progress Notes Patient:Gudelia Ferro Provider:?Nely Sood DPM :1950???Age:73 Y???Sex:Female D ate:01/10/2024 Address: [address] [place], [id number] Pcp:Lauri Peoples MD Subjective: * Chief Complaints: * ???Wart(s)Skin problem(s) * HPI: ???Skin problems:?Pt States PCP Visit: ?DATE?10/18/2023 ?Nature:?dryness , scaling.?Location:?B/L .?Duration:?several days.?Course:?worse.?Treatments:?OTC medications.? * ROS:?General/Constitutional:?Nausea?denies.?Vomiting?denies.?Hunger Thirst?denies.?Loss appetite?denies.?Chills?denies.?Fatigue?denies.?Fever?denies.?Night Sweats?denies.?Unexplained weight loss?denies.?Unexplained weight gain?denies.?HEENTM:?Dentures?denies.?Dizziness?admits.?Glasses/contacts?admits ?.?Retinopathy?denies.?Blurred/double vision?denies.?TMJ?denies.?Discharge/drainage?denies.?Implants?denies.?Sore throat?denies.?Dental implants?denies.?Hard of hearing ?admits.?Difficulty chewing/swallowing/speaking?denies.?Nose bleeds?denies.?Sore mouth?denies.?Respiratory:?On Oxygen?denies.?Pneumonia/pleurisy?denies.?Bronchitis?denies.?Emphysema?denies.?C oughing?denies.?Cough blood?denies.?Shortness of breath?denies.?Wheezing?denies.?Cardiovascular:?Pacemaker?denies.?MVP?denies.?WPW?denies.?CHF?denies.?Heart attack?denies.?Septal defect?denies.?Rapid beat?denies.?Chest pain ?denies.?Atrial Fib.?denies.?Murmur/Palpitations?denies.?Gastrointestinal:?Hemorrhoids?denies.?Stomach/Abdominal pain?denies.?Dark blood stool?denies.?Irritable bowel ?denies.?Constipation?denies.?Diarrhea?denies.?Hematology:?Swelling?denies.?Clots?denies.?Varicose Veins?denies.?Bruising?denies.?Bleeding problem?denies.?Genitourinary:?Blood urine?denies.?Frequent/Painfu/urination/bladder control?denies.?Kidney stones?denies.?Infection (UTI)?denies.?Nephropathy?denies.?sex trans dis (STD)?denies.?Prostate?denies.?Musculoskeletal:?Hammertoes?denies.?Bunions?denies.?Back Pain?denies.?Muscle Cramps/ Resting?denies.?Muscle cramps / walking?denies.?Generalized aches and pains?denies.?Weakness?denies.?Integ.:?Andrew?denies.?Scars?denies.?Corns/calluses?admits.?Ingrown nails?denies.?Painful nails?denies.?Open Sores?denies.?Rashes?denies.?Neurologic:?Difficulty sleeping?denies.?Brain disorder?denies.?Numbness?denies.?Balance trouble?denies.?Confusion?denies.?Fainting/blackouts?denies.?Tingling?denies.?Tr emors?denies.? * Medical History:? * Surgical History:?knee repla cement 2022 * Hospitalization/Major Diagno stic Procedure:?Denies Past Hospitalization * Family History:?Mother: dece ased, poor circulation, diagnosed with Family history of arthritis, Unspecified essential hypertension.?Father: .?Siblings: unknown, sister- strokebrother- kidney/liver disease, heart attack, diagnosed with Diabetic - NIDDM.? * Social History:?Tobacco Use:?Tobacco Use/Smoking?Are you a:?nonsmoker ?Additional Findings: Tobacco Non-User?Current non-smoker ?Tobacco use other than smoking?Are you an other tobacco user??No ???Drugs/Alcohol:?Drugs?Have you used drugs other than those for medical reasons in the past 12 months??No ?Alcohol Screen?Did you have a drink containing alcohol in the past year??No ?Points?0 ?Interpretation?Negative ???Miscellaneous:?Caffeine: yes, frequency:, 2-3 cups per day. ?Children: yes, 2. ?Exercise: dog walking, yard work, reading , baking. ?Marital status: single, . ?Occupation: Retired. * Medications:?TakingGabapenti n 300 MG Capsule 1 capsule Orally at bedtimeErenumab-aooe 140 MG/ML Solution Auto-injector as directed Subcutaneous Nurtec 75 MG Tablet Disintegrating 1 tablet on the tongue and allow to dissolve Orally Topiramate 100 MG Tablet 1 tablet Orally Once a dayEzetimibe 10 MG Tablet 1 tablet Orally Once a dayMethylphenidate HCl ER 10 MG Tablet Extended Release 1 tablet Orally Twice a daySertraline HCl 50 MG Tablet 1 tablet Orally Once a dayMedication List reviewed and reconciled with the patientTaking Gabapentin 300 MG Capsule 1 capsule Orally at bedtimeTaking Erenumab-aooe 140 MG/ML Solution Auto-injector as directed Subcutaneous Taking Nurtec 75 MG Tablet Disintegrating 1 tablet on the tongue and allow to dissolve Orally Taking Topiramate 100 MG Tablet 1 tablet Orally Once a dayTaking Ezetimibe 10 MG Tablet 1 tablet Orally Once a dayTaking Methylphenidate HCl ER 10 MG Tablet Extended Release 1 tablet Orally Twice a dayTaking Sertraline HCl 50 MG Tablet 1 tablet Orally Once a dayMedication List reviewed and reconciled with the patient * Allergies:?N.K.D.A.yes[Aller gies Verified] Objective: * Vitals:?Ht: 5 ft 5.5in, Wt:1 90, BMI:31.13, Shoe size: 7.5, Ht-cm: 166.37 cm, Wt- k.18 kg. * Examination: ???General Examination: ?GENERAL APPEARANCE:?Reveals a pleasant, alert, well nourished, well- developed, well hydrated individual, who demonstrates proper attention to hygiene/body habitus, and is in no acute distress, Pt serves as own historian for office visit today.?ORIENTED:?person, place, and time.?Dermatologic: ?SKIN FINDINGS:?Skin shows sign(s) of, dryness, scaling, in a stocking fashion, no fissure(s) present, B/L.?VERRUCA:?Reveals Multiple ( 2 ), multi-loculated , mosaic-patterned, round, raised, flat-topped, petechial bleeding papule(s), with cauliflower appearance and interruption of skin lines, with pain to lateral compression, and size estimated at 3-4mm diameter plantar forefoot b/l.?Vascular: ?DP PULSES:?3/4, B/L.?PT PULSES:?34, B/L.?CAPILLARY FILL TIME:?immediate, all digits, B/L.?SKIN TEMPERTURE GRADIENT OF THE LOWER EXTERMITIES:?normal, warm to cool, proximal to distal, B/L, B/L.?TROPHIC CONDITION FOR TEXTURE/ELASTICITY/TURGOR/HAIR GROWTH:?normal, B/L.?PIGMENTATION:?normal, B/L.?Neurological: ?SENSORY:?Neurological exam reveals intact sensorium, pain sensation normal, vibration sensation intact, pinprick sensation is normal in the lower extremities, Pt denies, anesthesia, burning, paresthesia, tingling, B/L.?TINEL'S COMPRESSION:?Negative tarsal tunnel, tom pedis, and medial calcaneal nerves.?Orthopedic: ?DIGITAL DEFORMITIES:?Digital contracture, PIPJ, 2-5 B/L, incompl-reducible with WB, or to push-up test, no over, nor underlapping.? Assessment: * Assessment: 1.?Right foot pain - M79.671 ?2.?Plantar wart - B07.0 (Primary)?3.?Left foot pain - M79.672?4.?Xerosis of skin - L85.3, Acute problem, Uncomplicated (3),Rx Management (4)? Plan: * Treatment: 2.?Xerosis of skin? Start Ammonium Lactate Cream, 12 %, 1 application, Externally to feet except for between the toes, Twice a day, 30 days, 140, Refills 2.?? * Procedures:?Wart Treatment:?Procedure?Verrucae were debrided to pin-point bleeding margins with sterile 15 surgical blade - 01428 , treated with CANTHERONE Plus Salicylic acid. The patient was informed of the possible skin reactions to Canthardin, including, but not limited to, pain, difficulty standing/walking for up to a week or more, redness, swelling, blistering, infection. Recommendations were made for the patient to take Tylenol and/or Anti-inflammatories such as Motrin for pain if their PMH allows, apply ice, or soak in cool water twice daily for 20 minutes for blistering, and call the office if reaction is severe.? * Procedure Codes:?99870 Chanda Frost, 1-14, Modifiers: XS * Preventive Medicine:? ??Counseling:?Discussion:?-02: Office or other outpatient visit for the evaluation and management of a new patient, which required a medically appropriate history and/or examination and STRAIGHTFORWARD level of MEDICAL DECISION MAKING, 1 SELF-LIMITED OR MINOR PROBLEM, MINIMAL- NO AMOUNT/COMPLEXITY OF DATA TO BE REVIEWED/ANALYZED, AND MINIMAL RISK OF COMPLICATION/MORBIDITY. The visit on the day of the encounter encompassed interpreting the data and educating the patient as to the nature of their condition, treatment options available according to their individual PMH, meds, allergies, and overall health/living conditions, as well as any potential risks or complications that may occur from a failure to adhere to, and participate in, the recommended course of therapy. The discussion included a complete verbal, and/or written explanation of the examination results, any x-rays taken, the proposed diagnosis, and outline of the treatment plan. A schedule for future care needs was also explained. The patient verbalized an understanding of the instructions at this time and agreed to be an active participant in their treatment. If the patient should think of any questions or concerns after the visit, I have encouraged the patient to call the office.?Xerosis:?The patient was counseled on the diagnosis, potential etiologies, and treatment options for their skin condition. We discussed the risks and benefits of each option from performing no treatment, to utilizing OTC topical skin creams/ointments, to utilizing prescription topical creams/ointments, to utilizing customized compounded topical medications and use of nocturnal occlusion with any/all previously detailed therapies. We discussed the advantages and disadvantages of each possible treatment and importance for adherence to all the recommended therapies for optimum success and avoid potential complications such as open sore/infection/possible hospitalization. We discussed the potential effectiveness of each topical preparation as well as each ones possible side effects and/or patient medication interactions. Patient questions re: use, dosage, successful outcomes, and application consistency were reviewed and the patient verbalized that all answers were clearly understood. The patient has decided to apply Rx skin creams to their feet save the interspaces while paying special attention to the heels. Such was sent to their pharmacy at the time of visit.? * Follow Up:?2 Months * Images: * Sign off status: Completed true * Provider:?Nely Sood DPM Date:?2023 Generated for Thomas vital/Jomar/Maggie on:?03/26/2024 09:07 AM EST History and Physical Notes * HPI (History of Present Illness) Category Sub-Category Detail Notes Category Not es Skin problems Nature: dryness , scaling Location: B/L Duration: several days Course: worse Treatments: OTC medications Pt States PCP Visit: DATE: 10/18/2023 Examination Category Sub-Category Detail Notes Category Not es Neurological SENSORY: Neurological exa m reveals intact sensorium, pain sensation normal, vibration sensation intact, pinprick sensation is normal in the lower extremities, Pt denies, anesthesia, burning, paresthesia, tingling, B/L TINEL'S COMPRESSION: Negative tarsal sara art, tom pedis, and medial calcaneal nerves Dermatologic SKIN FINDINGS: Skin shows sign( s) of, dryness, scaling, in a stocking fashion, no fissure(s) present, B/L VERRUCA: Reveals Multiple ( 2 ), multi-loculated , mosaic-patterned, round, raised, flat-topped, petechial bleeding papule(s), with cauliflower appearance and interruption of skin lines, with pain to lateral compression, and size estimated at 3-4mm diameter plantar forefoot b/l Orthopedic DIGITAL DEFORMITIES: Digital con tracture, PIPJ, 2-5 B/L, incompl-reducible with WB, or to push-up test, no over, nor underlapping General Examination GENERAL APPEARANCE: Reveals a pleasant, alert, well nourished, well-developed, well hydrated individual, who demonstrates proper attention to hygiene/body habitus, and is in no acute distress, Pt serves as own historian for office visit today ORIENTED: person, place, and t rocio Vascular DP PULSES(B): 3, B/L PT PULSES(B): 3/4, B/L CAPILLARY FILL TIME: immediate, all digi ts, B/L TEMPERTURE GRADIENT(C): normal, warm to cool, proximal to distal, B/L, B/L TROPHIC CONDITION-TEXTURE/ELASTICITY/TURGOR/HAIR GROWTH(B): normal, B/L PIGMENTATION: normal, B/L
--- OUTSIDE RECORDS SUMMARY | 2024-03-26 09:08 | XMS_ITS | Patient Health Record ---
Author Organization [facility] Jenni franco [place] Address [address] [place] [address] Care Team Providers Care Fire Prevention Engineer Name Role Phone Lauri Peoples MD Primary Care Provider Unavailabl e Black, Nely Unavailable [phone] Allergies No Known Allergies Reason For Referral No Information Medications Medication SIG (Take, Route, Frequency, Duration) Notes Start Date End Date Status Nurtec 75 MG 1 tablet on the tong ue and allow to dissolve Orally Active Erenumab-aooe 140 MG/ML as directed Subcutaneous Active Gabapentin 300 MG 1 capsule Orally at bedtime Active Sertraline HCl 50 MG 1 tablet Orally [...] Twice a day for 30 days Active Social History Tobacco Use: Social History [...] W/U Status Risk Notes Problem Plantar wart (18184459) Plantar wart (B07.0) Active confirmed Vital Signs Height 5 ft 5.5in in 01/10/2024 Weight 190 lbs 01/10/2024 BMI 31.13 kg/m2 01/10/2024 Procedures Procedure Date Ordered Date Performed Result Body Sit e 91591-Wnft Destruction, -01/10/2024 N/A Encounters Encounter Location Date Provider Diagnosis [facility] [place] [address] [place] [address] 01/10/2024 Nely Sood Right foot pain M79.671 [...] skin (ICD-10 - L85.3) Plan Of Treatment Pending Test Test Name Order Date [id number]-Aykd Destruction, -01/10/2024 Next Appt Details Provider Name:Nely Sood , 04/07/2024 10:15:00 AM, [address] [facility], [place], [address], Insurance Providers Payer Name Payer Address Payer Phone Subscriber Number Group Number Insured Name Patient Relationship to Insured Coverage Start Date Coverage End Date Medicare National [employer] [address] [facility] [place] [id number] HannaDeisi juarez i Gudelia Self - patient is the insured [facility] [address] [place] [address] [id number] HannaDeisi juarez i Gudelia Self - patient is the insured for Life [address] [place] [address] [phone] [id number] HannaDeisi juarez i Gudelia Self - patient is the insured Medical (General) History Medical History History ICD Code Alzheimers disease Back,Hip,and Knee pain CAD (Cholesterol) covid-19 Headaches/Migraines raynauds disease Reflux ( GERD) Scarlet fever sinusitis Measles Chicken pox Joint implants/screws Surgical History Surgery Date(Month/Year) knee replacement 2022
--- OUTSIDE RECORDS SUMMARY | 2024-03-26 09:08 | XMS_ITS | Continuity of Care Document ---
Author Organization [facility] Rashard Aung lt Address [address] [place] [address]- Care Team Providers Care Logging Truck Driver Name Role Phone Esme HERNÁNDEZ, Yelena Mix Primary Care Physician [phone] Encounter [facility] [place] Date(s): 11/06/23 - 12/06/23 [facility] Saran Starkley Adult [address] [place] [address]- Allergies, Adverse Reactions, Alerts Substance Reaction Severity [...] virus vaccine, inactivated 6 03/24/13 Gi ricci [id number] bivalent booster vax 03/25/22 Recorded SARS-CoV-2 (COVID-19) [...] Toxoid Vaccine (oldterm) 08/28/00 Given 1Result Comment: [id number] 2[facility] 3Admin Note[facility] 4Result [...] class I Confirmed Active Obesity Confirmed Active [facility] prescription benzodiazepine use Confirmed Active Raynaud's phenomenon Confirmed 03/26/09 Active Situational anxiety Confirmed 03/01/12 Active Tinnitus Confirmed 01/20/08 Active Recurrent vertigo - BPPV Confirmed Active Social History Social History Type Response Smoking Status Never smoker entered on: 09/28/17 Sex Patient Care team information Care Team Personnel Name: Yelena Fischer Position: [facility] Associate Professional Member Role: PCP Address: Address: [address] [place] [address]- Care Team Related Persons Name: SELMA TEE Address: home [address] [place] [address] Name: ELIDA TEE Address: home [address] [place] [address]
--- OUTSIDE RECORDS SUMMARY | 2024-03-26 09:08 | XMS_ITS | Continuity of Care Document ---
Author Organization [facility] Address Unknown Care Team Providers Care Newspaper Distributor Supervisor Name Role Phone Shazia IVAN, Santana Shultz Primary Care Physician [phone] Encounter [facility] Date(s): 10/22/20 - 02/19/21 [facility] Attending Physician: Felicitas Dunbar MD Admitting [...] 08/28/00 Given 1Result Comment: PHARMACY 2Result Comment: [id number] 3Admin Note: [facility] 4[facility] Note[facility] 5Result Comment: [12/10/2014] [facility] 7Admin Note: [facility] 03-22-13 8Result Comment: [id number] 9Admin Note[facility] 03-22-13. Medications ALPRAZolam 0.5 mg oral tablet 0.5 mg, 1, tablet, By Mouth, 3 times a day, PRN, # 12 tablet, Refills 0, Tot. Refills 0, Maintenance, for anxiety, 02/16/21 17:04:00 EDT, Route to Pharmacy Electronically, [id number], 164, cm, 11/22/20 9:52:00 EDT, Height, 96, [...] 0 Refills, Maintenance, 02/02/21 15:00:00 EDT, Tablet, [id number], Partial fill upon patient request if the prescription is for a schedule II opioid drug., 1... Start Date: 02/02/21 Status: Ordered methylphenidate 10 mg/8 hr oral tablet, extended release 1 tablet = 10 mg, By Mouth, Daily, # 30 tablet, 0 Refills, Maintenance, 02/08/21 17:21:00 EDT, ER Tablet, [facility] #[id number], 164, cm, 11/22/20 9:52:00 EDT, Height, 96, kg, 08/10/20 7:04:00 EDT, Dry Weight Start Date: 02/08/21 Status: Ordered nortriptyline 25 mg oral capsule 50 mg, 2, capsule, By Mouth, Daily at bedtime, 2 tabs at bedtime, # 60 capsule, Refills 5, Tot. Refills 5, Maintenance, 10/07/20 12:20:00 EDT, Route to Pharmacy Electronically, [facility] #[id number], Dose reduced., 167.64, cm, 10/05/20 9:20:00 E... 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
--- OUTSIDE RECORDS SUMMARY | 2024-03-26 09:08 | XMS_ITS | Continuity of Care Document ---
Author Organization [facility] Rashard Aung lt Address [address] [place] [address]- Care Team Providers Care Casino Floorperson Name Role Phone Yelena Fischer Primary Care Physician [phone] [place] [facility] [place]23 [place]29/23 [facility] Rashard Adult [address] [place] [address]- Attending Physician: Admtr, [id number] Allergies, Adverse Reactions, [...] virus vaccine, inactivated 6 03/24/13 Gi ricci [id number] bivalent booster vax 03/25/22 Recorded SARS-CoV-2 (COVID-19) [...] Toxoid Vaccine (oldterm) 08/28/00 Given 1Result Comment: [id number] 2Admin Note[facility] 3Admin Note[facility] 4Result [...] I Confirmed Active Obesity Confirmed Active 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
--- OUTSIDE RECORDS SUMMARY | 2024-03-26 09:08 | XMS_ITS | Continuity of Care Document ---
Author Organization [facility] Address [address] [place] [address]- Care Team Providers Care Switch Engineer Name Role Phone Yelena Fischer Primary Care Physician [phone] Encounter [facility] Date(s): 12/15/22 - 01/14/23 [facility] Adult [address] [place] [address]- Allergies, Adverse Reactions, Alerts Substance Reaction Severity Status Reglan bruising Active Crestor Active Immunizations Given and Recorded Vaccine Date Status Refusal Reason [id number] bivalent booster vax 03/25/22 Recorded SARS-CoV-2 (COVID-19) [...] 08/28/00 Given 1Result Comment: PHARMACY 2Result Comment: [id number] [facility] 7Admin Note: [facility] 03-22-13 8Result Comment: [id number] 9Admin Note: [facility] 03-22-13. Medications [...] Acute 01/15/23 8:00:00 EDT, 01/08/23 11:01:00 EDT, Tablet,[facility] 3, Partial fill upon pat... 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 Raynaud's phenomenon Confirmed 03/26/09 Active Severe obesity (BMI 35.0-39.9) with comorbidity Confirmed Active Situational anxiety Confirmed 03/01/12 Active Tinnitus Confirmed 01/20/08 Active Recurrent vertigo - BPPV Confirmed Active Social History Social History Type Response Smoking Status Never smoker entered on: 09/28/17 Sex Patient Care team information Care Team Personnel Name: Yelena Fischer Position: [facility] Associate Professional Member Role: PCP Address: Address: [address] [place] [id number]- Care Team Related Persons Name: SELMA TEE Address: home [address] [place] [address] Name: ELIDA TEE Address: home [address] [place] [address]
[2024-03-26 09:31] LABS: Influenza A PCR NEGATIVE (Negative); Influenza B PCR NEGATIVE (Negative); Resp Syncy Virus RNA Qual PCR NEGATIVE (Negative); SARS COV2 PCR INHOUSE POSITIVE (Negative)
--- NOTE | 2024-03-26 09:42 | ED_ITS ---
HPI - Headache General Chief Complaint: Headache Stated Complaint: Headache 2 weeks, facial/neck pain Time Seen by Provider: 03/26/24 09:11 Source: patient and RN notes reviewed Mode of arrival: ambulatory Limitations: no limitations History of Present Illness ED Provider: Citlaly Houston PA-C HPI Narrative: This is a 73-year-old female, with a history of vestibular migraines, who presents emergency department with complaints of headaches, facial pain, bilateral ear pain, congestion x2 weeks. Patient states that over the last 3-4 days, she felt as though her congestion as well as facial pain has worsened. She has been taking Excedrin as well as over the counter medications without any relief. She states that she called her primary care physician and states that she reported that she did have neck pain, they are unable to see her. Patient has full range of motion of her neck, she has not had any fevers, dizziness, blurred vision, chest pain, shortness of breath, cough, abdominal pain, nausea, vomiting or diarrhea. 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 She does report history of sinus infections, and states that her symptoms feel like her sinus infection she has had in the past. No other complaints or concerns at this time. MD elicited complaint: headache Location: facial Severity: moderate Quality & Timing: aching Exacerbating factors: none Relieving factors: nothing Associated symptoms: none Treatments prior to arrival: none Related Data Previous Rx's ?Medication ?Instructions ?Recorded amoxicillin 875 mg-potassium 1 tab PO BID 7 days #14 tabs 03/26/24 clavulanate 125 mg tablet Allergies Allergy/AdvReac Type Severity Reaction Status Date / Time No Known Allergies Allergy Verified 03/26/24 08:32 Review of Systems Review of Systems: Yes all other systems are reviewed and are negative Constitutional: Constitutional: Reports as per [facility] Past Medical History Attestation statement: The following information was validated with the patient. Social History Social History Advance Directives: Yes Advance Directives Information Provided: No Advance Directives on File: No Physical Exam Vital Signs: Vital Signs: Last Vital Signs Temp 97.3 F 03/26/24 10:18 Pulse 77 03/26/24 10:18 Resp 16 03/26/24 10:18 BP 117/71 03/26/24 10:18 Pulse Ox 96 03/26/24 10:18 O2 Del Method Room Air 03/26/24 10:18 BMI result Body Mass Index 29.4 Const: General: cooperative, comfortable and no acute distress Orientation/consciousness: patient oriented x3 Limitations: no limitations HEENT: Other: Tenderness palpation along the maxillary, frontal, and ethmoid sinuses. Head: Yes normal to inspection, Yes normocephalic and Yes atraumatic Ears: hearing grossly normal bilaterally and TM's normal bilaterally General nose exam: Normal external nose present Face and sinus: Yes normal facial exam Mouth: Normal oral and palatal mucosa present, oropharynx normal and moist mucous membranes Throat: Yes posterior oropharynx normal, Yes tonsils normal and Yes uvula midline Eyes: General: appearance normal, both eyes and all related structures Eyelids: Yes eyelids normal Conjunctivae: conjunctivae normal Sclerae: sclerae normal Pupils: Equal, round and reactive pupils present EOM: EOMs intact bilaterally Neck: Neck: Yes normal visual inspection, Yes full ROM, Yes no lymphadenopathy, Yes no meningeal signs and Yes supple Lymphatic: no lymphadenopathy noted Chest: Chest palpation & inspection: normal inspection of the chest Resp: Effort & Inspection: normal respiratory effort and able to speak in complete sentences Auscultation: clear to auscultation bilaterally, no crackles, no rales, no rhonchi and no wheezes Cardio: Rate: regular rate Rhythm: regular rhythm Heart sounds: S1 normal heart sound present and S2 normal heart sound present GI: Inspection: Yes normal to inspection Skin: General skin exam: no rashes or lesions noted Trauma: no lacerations or abrasions Wounds: no wounds Neuro: General: patient oriented x3, moves all extremities and no meningeal signs Cranial nerves: Yes Equal, round and reactive pupils present Extrem: General: Yes normal to inspection Right upper extremity: normal to inspection Left upper extremity: normal to inspection Right lower extremity: normal to inspection Left lower extremity: normal to inspection Medical Decision Making Medical Decision Making MDM Narrative: This is a 73-year-old female, with a history of vestibular migraines, who presents emergency department with complaints of facial pain, congestion, bilateral ear pain, and sore throat. On arrival, she is speaking in full [place] under no acute distress. Lungs are clear to auscultation bilaterally, vital signs within normal limits. She has tenderness palpation along her maxillary, frontal, and ethmoid sinuses, no other findings on examination. She has no meningeal signs. Neck is soft and supple, with full range of motion. Differential diagnoses include COVID, RSV, flu, acute sinusitis, strep pharyngitis, less likely meningitis given full ROM of the neck. Patient reports her neck pain that she is having his chronic for her and unchanged. Patient tested positive for COVID. I discussed findings with patient. She likely has a sinus infection, and also developed a COVID infection on top of this. Discussed that we will treat with Augmentin. It is unclear when she developed COVID therefore it is unclear if we can start her on medications to treat. Discussed starting Paxlovid however patient is on multiple medications for her migraines, and it was unclear when she contracted the virus therefore Paxlovid would likely not be beneficial for her. Given strict return precautions. She understands and agrees with plan. Patient stable for discharge. Differential Diagnosis Differential Diagnoses: The differential diagnosis associated with the presentation includes See above Admission/Observation Consideration of admission/observation: Escalation of care including admission/observation considered Lab Data MDM Lab Attestation statement: I reviewed the patient's lab results. Labs: Lab Results 03/26/24 Range/Units 08:47 Influenza Type A (PCR) NEGATIVE (Negative) Influenza Type B (PCR) NEGATIVE (Negative) RSV RNA Qual (PCR) NEGATIVE (Negative) SARS-CoV-2 RNA (RT-PCR) POSITIVE A (Negative) S. pyogenes GrpA LEONARD Negative (Negative) Radiology Impression Discussion of test interpretation with radiology: I have reviewed the radiologist's reading. External Record Review External record reviewed: Inpatient record, Office record, Outpatient record, Prior outpatient labs, Prior outpatient radiology, Primary care record and Outside ED record Discharge Plan Discharge Clinical Impression: COVID-19 Acute sinus infection Qualifiers: Sinusitis location: pansinusitis Recurrence: not specified as recurrent Qualified Code(s): J01.40 - Acute pansinusitis, unspecified Patient Disposition: Home, Self-Care Instructions: Sinusitis (ED), COVID-19 (Coronavirus Disease 2019) (ED) Additional Instructions: You were seen in the emergency department today. You have clinical signs of a sinus infection. Please take full course of antibiotics as directed, finish the entire course even if you are feeling better. You also tested positive for COVID. You tested negative for flu, RSV, and strep throat today. Drink plenty of fluids and get plenty of rest. Take Tylenol as needed for pain. Please follow-up with your primary care physician. If any new or worsening symptoms occur including but not limited to worsening headache, high fevers, chest pain, shortness of breath, please seek emergent care. COVID-19 stands for coronavirus disease 2019. It is caused by a virus called SARS-CoV-2. The virus first appeared in late 2019 and quickly spread around the world. Many people only have mild cold symptoms. Some people have digestive problems, like nausea or diarrhea. There have also been some reports of rashes or other skin symptoms. For most people, symptoms get better within a few days to weeks.? Some people with COVID-19 continue to have some symptoms for weeks or months.? What should I do if I have symptoms or test positive?If you have a fever, cough, cold symptoms, or other symptoms of COVID-19, get tested. You can use the flowchart to figure out when to test and what to do based on the results If you?test positive: ? Self-isolate for at least 5 days, even if you feel well. Self-isolation means staying apart from other people, even the people you live with. The 5 days should start the day?after?you first noticed symptoms or got a positive test result. If you have a weak immune system or if you still have a fever, you might need to self-isolate for longer than 5 days. ?After self-isolating for 5 days, wear a mask around all other people for at least 5 more days. Some people use antigen tests to decide how long to keep wearing the mask. If you do this, you can stop wearing a mask once you test negative on 2 antigen tests done at least 2 days apart. ?If your symptoms are severe, or if you are at risk for severe illness,?call?you r doctor or nurse. They can tell you if you need to be seen. Depending on your situation, they might suggest treatment. Prescriptions: New amoxicillin-pot clavulanate 875-125 mg tablet 1 tab PO BID 7 Days Qty: 14 0RF Interventions: ED Discharge Assessment Last Done: 03/26/24 10:18 Discharge Date/Time: 03/26/24 10:26 Print Language: Kinyarwanda
[2024-03-26 10:08] VITALS: BP 117/71; PULSE 77; RESP 16; TEMP 36.3; O2SAT 96
[2024-03-26 10:18] VITALS: BP 117/71; PULSE 77; RESP 16; TEMP 36.3; O2SAT 96
== END 2024-03-26 10:26 | disposition home or self-care (01) ==
PROVIDERS: Emergency Provider Emergency Medicine Emergency Medical Services; PCP Physician Assistant Medical
DX: U07.1 COVID-19 (principal); J01.40 Acute pansinusitis, unspecified
CPT/HCPCS: 0241U; 87651; 99283; 99284